=== PATIENT | female | born 1950 | race Caucasian/White ===

== ENCOUNTER 2020-08-22 07:45 | Outpatient (CLI) | payer MEDICARE, SELFPAY ==
--- NOTE | ~2020-08-22 | MM_ITS ---
EXAMINATION: MM screening [facility] HISTORY: Screening mammogram, family history of breast cancer in her mother and sister. TECHNIQUE: Craniocaudal and mediolateral oblique 3-D tomosynthesis images were obtained and synthetic 2-D images were generated. CAD analysis was submitted and interpreted. COMPARISON: 05/01/2019, 04/10/2018, 06/04/2012 BREAST PARENCHYMAL COMPOSITION: There are scattered areas of fibroglandular density. FINDINGS: There is no evidence of suspicious mass, calcification, or architectural distortion to sugg est malignancy in either breast. There has been no suspicious interval change. IMPRESSION: 1. No mammographic evidence of malignancy. 2. Recommend routine screening mammography in one year. BI-RADS Category 1: Negative Reviewed, dictated and finalized at location A.
== END 2020-08-22 07:46 | disposition home or self-care (01) ==
LOC: ANHIMG 07:47
PROVIDERS: Visit Provider Nurse Practitioner Family
DX: Z12.31 Encounter for screening mammogram for malignant neoplasm of breast (principal)
CPT/HCPCS: 77063; 77067

== ENCOUNTER 2021-12-17 14:37 | Emergency (ER) | payer MEDICARE, SELFPAY ==
--- NOTE | ~2021-12-17 | CT_ITS ---
EXAMINATION: CT brain wo con DATE: 12/17/2021 15:10 INDICATION: FALL 4 DAYS AGO. BRUISING TO LEFT FOREHEAD. . TECHNIQUE: Computed tomography (CT) of the head was performed without intravenous contrast. The mA wa s adjusted according to patient size. Iterative reconstruction technique was employed. The dose-lengt h product was 605.33 mGy-cm. COMPARISON: None FINDINGS: No acute intracranial hemorrhage or extra-axial fluid collection. No hydrocephalus, mass, or herniation. No acute ischemic infarct. Unremarkable dural venous sinus attenuation. No acute osseous abnormality. Minimal 400 contusion. The aerated spaces are clear. Mild atrophy and chronic white matter change. Atherosclerotic intracranial calcifications. IMPRESSION: No acute intracranial process. Reviewed, dictated and finalized at location K.
--- NOTE | ~2021-12-17 | CT_ITS ---
EXAMINATION: CT cervical spine wo con DATE: 12/17/2021 15:10 INDICATION: FALL 4 DAYS AGO. NECK SORENESS SINCE FALL. TECHNIQUE: Computed tomography (CT) of the cervical spine was performed without intravenous contrast. Automated exposure control and iterative reconstruction technique were employed. The dose-length pro duct was 256.16 mGy-cm. COMPARISON: None FINDINGS: Vertebral Body Alignment: Intact. Craniocervical and atlantoaxial alignment: Moderate degenerative change. Alignment intact. Osseous structures/fracture: No evidence of a lytic or blastic process in the visualized spine. No e vidence of acute fracture. Cervical soft tissues: The paraspinal soft tissues planes are maintained. Degenerative changes: Multilevel degenerative disc disease. Multilevel severe facet arthropathy. Mare re right neural foraminal narrowing at C4-5. No severe central canal narrowing. IMPRESSION: No acute fracture or traumatic malalignment in the cervical spine. Reviewed, dictated and finalized at location K.
--- NOTE | 2021-12-17 14:41 | ED.FALL ---
HPI - Fall General Chief Complaint: Fall Stated Complaint: fell down on Saturday;went to [facility] Time Seen by Provider: 12/17/21 14:41 Source: patient and RN notes reviewed Mode of arrival: ambulatory Limitations: no limitations History of Present Illness complaint: fall Onset (ago): day(s) (4) Fall from: standing Fall witnessed: no Place fall occurred: home Loss of consciousness: none Prolonged down time: no Symptoms prior to fall: none Context: tripped/slipped (on rug) Location of injury: head and neck Severity: moderate Quality: dull and aching Associated symptoms (after fall): neck pain Related Data Home Medications Medication Instructions Recorded Confirmed albuterol sulfate 90 mcg/actuation 1 inh inhalation Q4H 12/17/21 12/17/21 aerosol inhaler cyclobenzaprine 10 mg tablet 10 mg PO BID 12/17/21 12/17/21 famotidine 20 mg tablet 20 mg PO BID 12/17/21 12/17/21 gabapentin 300 mg capsule 300 mg PO DAILY 12/17/21 12/17/21 lisinopril 20 mg tablet 20 mg PO DAILY 12/17/21 12/17/21 montelukast 10 mg tablet 10 mg PO DAILY 12/17/21 12/17/21 omeprazole 40 mg capsule,delayed 40 mg PO DAILY 12/17/21 12/17/21 release oxybutynin chloride 5 mg tablet 5 mg PO BID 12/17/21 12/17/21 Allergies Allergy/AdvReac Type Severity Reaction Status Date / Time No Known Allergies Allergy Mild Unverified 12/17/21 14:50 Review of Systems Review of Systems: All systems reviewed & are unremarkable except as noted in HPI and below PMFSH Past Medical History Medical History (Updated 12/17/21 @ 15:59 by Rome Lau MD) Hypertension Peripheral neuropathy Surgical History Surgical History (Updated 12/17/21 @ 14:45 by Rome Lau MD) History of tonsillectomy History of total abdominal hysterectomy S/P hernia repair Social History Social History (Updated 12/17/21 @ 14:45 by Rome Lau MD) Smoking status: Never smoker Exam Const: General: healthy appearing, no acute distress and alert Nutritional Appearance: well nourished Orientation/consciousness: patient oriented x3 Limitations: no limitations HENMT: Head: hematoma left parietal and scalp tenderness Ears: external ears normal Eyes: Conjunctivae: conjunctivae normal Pupils: Equal, round and reactive pupils present EOM: EOMs intact bilaterally Neck: Neck: normal visual inspection Resp: Effort & Inspection: normal respiratory effort Auscultation: clear to auscultation bilaterally Cardio: Rate: regular rate Rhythm: regular rhythm GI: GI Palp: Yes Soft to palpation and No Tenderness to palpation present (GI) Auscultation: normal bowel sounds Back/Spine/Pelvis: Cervical Spine: cervical muscular tenderness ( on the left), pain with cervical ROM and Cervical spine tenderness Thoracic/Lumbar Spine: thoraco-lumbar ROM normal Skin: General skin exam: normal color Rashes: no rashes Neuro: General: patient oriented x3, moves all extremities, no focal motor deficits and CN's II-XI intact bilaterally Speech: normal speech Gait exam (Neuro): Normal gait present Other: GCS=15 Course Vital Signs Vital signs: Vital Signs Temperature 36.3 C L 12/17/21 14:46 Pulse Rate 77 12/17/21 14:46 Respiratory Rate 16 12/17/21 14:46 Blood Pressure 144/79 H 12/17/21 14:46 Pulse Oximetry 97 12/17/21 14:46 Oxygen Delivery Room Air 12/17/21 14:46 Temperature 36.2 C L 12/17/21 16:06 Pulse Rate 58 L 12/17/21 16:06 Respiratory Rate 17 12/17/21 16:06 Blood Pressure 115/80 12/17/21 16:06 Pulse Oximetry 97 12/17/21 16:06 Oxygen Delivery Room Air 12/17/21 16:06 Discharge Plan Discharge Clinical Impression: Contusion of scalp Qualifiers: Encounter type: initial encounter Qualified Code(s): S00.03XA - Contusion of scalp, initial encounter Patient Disposition: Home, Self-Care Condition: Stable Instructions: Scalp Contusion in Adults (ED) Additional Instructions: use Tylenol and or Motrin as needed.
[2021-12-17 14:46] VITALS: BP 144/79; PULSE 77; RESP 16; TEMP 36.3; O2SAT 97
[2021-12-17 16:06] VITALS: BP 115/80; PULSE 58; RESP 17; TEMP 36.2; O2SAT 97
== END 2021-12-17 16:07 | disposition home or self-care (01) ==
PROVIDERS: Emergency Provider Emergency Medicine; PCP Family Medicine
DX: S00.03XA Contusion of scalp, initial encounter (principal); W19.XXXA Unspecified fall, initial encounter; I10 Essential (primary) hypertension
CPT/HCPCS: 70450; 72125; 99284

== ENCOUNTER 2022-01-26 07:48 | Outpatient (CLI) | payer MEDICARE, SELFPAY ==
--- NOTE | ~2022-01-26 | MM_ITS ---
EXAMINATION: MM screening [facility] w [facility] HISTORY: Screening TECHNIQUE: Craniocaudal and mediolateral oblique 3-D tomosynthesis images were obtained and synthetic 2-D images were generated. CAD analysis was submitted and interpreted. COMPARISON: Comparison to multiple prior studies sequentially, with oldest reviewed study dated 06/04. BREAST PARENCHYMAL COMPOSITION: There are scattered areas of fibroglandular density. FINDINGS: There is no evidence of suspicious mass, calcification, or architectural distortion to sugg est malignancy in either breast. There has been no suspicious interval change. IMPRESSION: 1. No mammographic evidence of malignancy. 2. Recommend routine screening mammography in one year. BI-RADS Category 1: Negative Reviewed, dictated and finalized at location A.
== END 2022-01-26 07:49 | disposition home or self-care (01) ==
PROVIDERS: PCP Family Medicine; Visit Provider Family Medicine
DX: Z12.31 Encounter for screening mammogram for malignant neoplasm of breast (principal)
CPT/HCPCS: 77063; 77067

== ENCOUNTER 2022-01-31 08:44 | Emergency (ER) | payer MEDICARE, SELFPAY ==
--- NOTE | ~2022-01-31 | CT_ITS ---
EXAMINATION: CT lumbar spine wo con DATE: 01/31/2022 11:34 INDICATION: Nontraumatic low back pain. TECHNIQUE: Computed tomography (CT) of the lumbar spine was performed without intravenous contrast. A utomated exposure control and iterative reconstruction technique were employed. The dose-length produ ct was 814.54 mGy-cm. COMPARISON: None FINDINGS: There is 14 degrees levoscoliosis of thoracolumbar spine. There is mild chronic anterior we dging of T12-L2 vertebral bodies. There is severely decreased disc height at T12-L1 and moderately de creased disc height from L1-L2 through L5-S1. The following disc levels are specifically discussed: T12-L1: The disc is bulging. There is severe bilateral facet joint osteoarthritis. There is mild righ t neural foraminal stenosis. There is mild central canal stenosis. L1-L2: The disc is bulging. There is severe bilateral facet joint osteoarthritis. There is mild bilat eral neural foraminal stenosis. There is mild central canal stenosis. L2-L3: The disc is bulging. There is severe bilateral facet joint osteoarthritis. There is mild bilat eral neural foraminal stenosis. There is mild central canal stenosis. L3-L4: The disc is bulging. There is severe bilateral facet joint osteoarthritis. There is mild right and moderate left neural foraminal stenosis. There is moderate central canal stenosis. L4-L5: The disc is bulging. There is severe bilateral facet joint osteoarthritis. There is mild bilat eral neural foraminal stenosis. There is moderate central canal stenosis. L5-S1: The disc is bulging. There is severe bilateral facet joint osteoarthritis. There is moderate b ilateral neural foraminal stenosis. There is moderate central canal stenosis. IMPRESSION: 1. Severe lumbar spondylosis. 2. Thoracolumbar levoscoliosis. Reviewed, dictated and finalized at location B.
[2022-01-31 08:57] VITALS: BP 183/107; PULSE 59; RESP 18; TEMP 37; O2SAT 97
[2022-01-31 10:32] VITALS: BP 171/97; PULSE 57; RESP 14; O2SAT 97
--- NOTE | 2022-01-31 10:57 | ED.BACK ---
HPI - Back Pain/Injury General Chief Complaint: Back Pain/Injury Stated Complaint: back went out Time Seen by Provider: 01/31/22 10:48 Source: patient Mode of arrival: ambulatory Limitations: no limitations History of Present Illness HPI Narrative: 71 years old white female came to the emergency room by private car complaining of right lower back pain, chronic for years got worse over the last 2 weeks, and worse today. She denies any fever, chills, nausea, vomiting. History of chronic right sciatica, for years, numbness and tingling of the right lower extremity, was offered a surgery years ago and she declined she is telling me. Patient used to have epidural injection at [facility], was taking care of by pain management physician, patient had right lower leg vein surgery at [facility] 3 days ago. Patient denies bowel dysfunction, bladder dysfunction, altered sensation, focal weakness, or saddle numbness, Related Data Home Medications Medication Instructions Recorded Confirmed albuterol sulfate 90 mcg/actuation 1 inh inhalation Q4H 12/17/21 12/17/21 aerosol inhaler cyclobenzaprine 10 mg tablet 10 mg PO BID 12/17/21 12/17/21 famotidine 20 mg tablet 20 mg PO BID 12/17/21 12/17/21 gabapentin 300 mg capsule 300 mg PO DAILY 12/17/21 12/17/21 lisinopril 20 mg tablet 20 mg PO DAILY 12/17/21 12/17/21 montelukast 10 mg tablet 10 mg PO DAILY 12/17/21 12/17/21 omeprazole 40 mg capsule,delayed 40 mg PO DAILY 12/17/21 12/17/21 release oxybutynin chloride 5 mg tablet 5 mg PO BID 12/17/21 12/17/21 Allergies Allergy/AdvReac Type Severity Reaction Status Date / Time No Known Allergies Allergy Mild Verified 01/31/22 09:04 Review of Systems Review of Systems: All systems reviewed & are unremarkable except as noted in HPI and below PMFSH Past Medical History Medical History Hypertension Peripheral neuropathy Surgical History Surgical History History of tonsillectomy History of total abdominal hysterectomy S/P hernia repair Social History Social History Smoking status: Never smoker Exam Narrative: General appearance: Well-developed, well-nourished Skin: Normal color Head: Normocephalic, nontraumatic Eyes: Clear conjunctiva ENT: Oropharynx normal, ears normal, nose normal Neck: Supple, nontender Chest and respiratory: Airway patent, no respiratory distress, no accessory muscle use Heart: Regular rate/rhythm Abdomen: Soft, nontender, no organomegaly, quiet bowel sounds Vascular: Normal peripheral pulses, normal capillary refill. Musculoskeletal: Limited range of motion of lower extremity bilaterally because of lower back pain, right lower leg is wrapped with Nirav wrap Neurologic: Alert and oriented ?3, ROLL UP OPERATOR is normal as tested, no gross motor deficit Course Vital Signs Vital signs: Vital Signs Temperature 37.0 C 01/31/22 08:57 Pulse Rate 59 L 01/31/22 08:57 Respiratory Rate 18 01/31/22 08:57 Blood Pressure 183/107 H 01/31/22 08:57 Pulse Oximetry 97 01/31/22 08:57 Oxygen Delivery Room Air 01/31/22 08:57 Temperature 37.0 C 01/31/22 08:57 Pulse Rate 60 01/31/22 13:29 Respiratory Rate 13 01/31/22 13:29 Blood Pressure 153/84 H 01/31/22 13:29 Pulse Oximetry 95 01/31/22 13:29 Oxygen Delivery Room Air 01/31/22 08:57 MDM - Back Pain/Injury Differential Diagnosis Differential diagnosis: Likely lumbar radiculopathy, sciatica and strain of lumbar region Imaging Data Radiologist's impression: Impressions Lumbar
[2022-01-31] MEDS: HYDROmorphone HCL INJ (*CRX) 1 MG/ML SYR IM (11:20)
[2022-01-31] MEDS: ONDANSETRON HCL ODT 4 MG TABLET PO (11:20)
[2022-01-31 11:21] VITALS: BP 151/93; PULSE 65; RESP 22; O2SAT 96
--- NOTE | 2022-01-31 11:23 | PC.NURSE ---
Pt to CT scan via stretcher at this time.
[2022-01-31 13:29] VITALS: BP 153/84; PULSE 60; RESP 13; O2SAT 95
== END 2022-01-31 14:14 | disposition home or self-care (01) ==
PROVIDERS: Emergency Provider Emergency Medicine; PCP Family Medicine
DX: M47.26 Other spondylosis with radiculopathy, lumbar region (principal); S39.012A Strain of muscle, fascia and tendon of lower back, initial encounter; M54.31 Sciatica, right side; I10 Essential (primary) hypertension; G62.9 Polyneuropathy, unspecified; X58.XXXA Exposure to other specified factors, initial encounter
CPT/HCPCS: 72131; 96372; 99284; A9270; J1170

== ENCOUNTER 2022-02-26 14:55 | Emergency (ER) | payer MEDICARE, SELFPAY ==
--- NOTE | 2022-02-26 15:03 | ED.SKABFB ---
HPI - Skin/Abscess/Foreign Bdy General Chief complaint: Animal Bite Stated complaint: Cat Scratch Time Seen by Provider: 02/26/22 15:03 Source: patient and RN notes reviewed History of Present Illness HPI narrative: Patient is a 71-year-old female who presents to urgent care with complaints of a cat scratch to the top of the right hand. Patient is right-hand dominant. States that she was at her friend's house today and her cat scratched her hand. Patient is unsure if the cat is up-to-date on his vaccinations. States that they applied a powder to the top of the hand. The bleeding as well as bandages after cleaning the hand. No other acute complaints. No acute distress noted. Patient aware of the plan of care. Some parts of this dictation were generated by voice recognition software and may contain typographical and/or grammatical inaccuracies. Related Data Home Medications Medication Instructions Recorded Confirmed albuterol sulfate 90 mcg/actuation 1 inh inhalation Q4H 12/17/21 02/26/22 aerosol inhaler cyclobenzaprine 10 mg tablet 10 mg PO BID 12/17/21 02/26/22 famotidine 20 mg tablet 20 mg PO BID 12/17/21 02/26/22 gabapentin 300 mg capsule 300 mg PO DAILY 12/17/21 02/26/22 lisinopril 20 mg tablet 20 mg PO DAILY 12/17/21 02/26/22 montelukast 10 mg tablet 10 mg PO DAILY 12/17/21 02/26/22 omeprazole 40 mg capsule,delayed 40 mg PO DAILY 12/17/21 02/26/22 release oxybutynin chloride 5 mg tablet 5 mg PO BID 12/17/21 02/26/22 Allergies Allergy/AdvReac Type Severity Reaction Status Date / Time No Known Allergies Allergy Mild Verified 01/31/22 09:04 Review of Systems Review of Systems: CONSTITUTIONAL: Denies fever, chills, or sweats. EYES: Denies visual changes, redness, or discharge. ENT: Denies rhinorrhea, congestion, sore throat, or otalgia. CARDIOVASCULAR: Denies chest pain, palpitations, or edema. RESPIRATORY: Denies cough or dyspnea. GASTROINTESTINAL: Denies abdominal pain, nausea, vomiting, or diarrhea. GENITOURINARY: Denies dysuria or hematuria. SKIN: Reports of a cat scratch to the top of the right hand MUSCULOSKELETAL: Denies back pain, joint pain, or myalgia. NEUROLOGIC: Denies headache, numbness, or weakness. All other systems reviewed are negative, except as documented in HPI. PMFSH Past Medical History Medical History Hypertension Peripheral neuropathy Surgical History Surgical History History of tonsillectomy History of total abdominal hysterectomy S/P hernia repair Social History Social History Smoking status: Never smoker Comments At the time of my signature, I reviewed and agree with the nursing past medical, surgical, social, and family history. There is no relevant family history pertinent to the patient complaint. Exam Narrative: GENERAL: This is a well-nourished, well-developed patient, in no apparent distress. HEAD: normocephalic, atraumatic. EYES: PERRL. Sclera clear/white. Vision is grossly intact. EARS: External ears normal NOSE: External nose normal with no obvious nasal discharge, nares without redness, no rhinorrhea. THROAT: Mucous membranes moist NECK: Neck supple SKIN: 1 x 1 skin avulsion to the dorsal aspect of the right hand, 0.5 cm skin tear to the dorsal aspect of the right hand NEURO: awake, alert, and oriented to person, place and time. There were no obvious focal neurologic abnormalities. EXTREMITIES: positive strong right radial pulse with capillary refill less than 2 seconds. Course Course Level of Care: Express Care Visit Vital Signs Vital signs: Vital Signs Temperature 98.2 F 02/26/22 15:08 Pulse Rate 56 L 02/26/22 15:08 Respiratory Rate 16 02/26/22 15:08 Blood Pressure 152/82 H 02/26/22 15:08 Pulse Oximetry 98 02/26/22 15:08 Oxygen Delivery Room Air 02/26/22 15:08
[2022-02-26 15:08] VITALS: BP 152/82; PULSE 56; RESP 16; TEMP 36.8; O2SAT 98
== END 2022-02-26 15:44 | disposition home or self-care (01) ==
PROVIDERS: Emergency Provider Nurse Practitioner Family; PCP Family Medicine
DX: S60.511A Abrasion of right hand, initial encounter (principal); W55.03XA Scratched by cat, initial encounter; I10 Essential (primary) hypertension; G62.9 Polyneuropathy, unspecified
CPT/HCPCS: 99213; G0463

== ENCOUNTER 2022-03-30 17:56 | Emergency (ER) | payer MEDICARE, SELFPAY ==
--- NOTE | 2022-03-30 18:08 | ED.DENTAL ---
HPI - Dental/Oral General Chief complaint: Dental/Oral Stated complaint: mouth is bleeding from tooth removal Time Seen by Provider: 03/30/22 18:03 Source: patient Mode of arrival: ambulatory Limitations: no limitations History of Present Illness HPI Narrative: PATIENT HAD 4 OF HER LOWER FRONT TEETH REMOVED BY DARIN TODAY. SHE SAYS SHE HAS A CLOT OVER HER GUMS. PATIENT STATES SHE LEFT THE OFFICE AROUND 11:00 A.M.. THERE WAS A GAUZE OVER THE WOUND SHE SAID SHE WAS BLEEDING IN THE OFFICE AND WHEN SHE LEFT THE OFFICE THAT SHE HAS BEEN BLEEDING ALL DAY. SHE SAID THE BLEEDING STOPPED JUST BEFORE SHE CAME TO THE EMERGENCY DEPARTMENT TEETH NUMBER 23, 24, 25, AND 26 WERE THE ONES THAT WERE EXTRACTED. SHE HAS WAS TOLD TO TAKE TYLENOL IBUPROFEN FOR PAIN. DENIES ANY OTHER PAIN OR DIZZINESS OR LIGHTHEADEDNESS OR COMPLAINTS. THE ONLY THING SHE HAD TO EAT TODAY WAS LIQUID BROTH. SHE WAS TOLD TO STICK WITH LIQUIDS AT AND SOFT FOOD FOR 2 WEEKS. DENIES ANY FEVER GUM SWELLING, TOO SWELLING, PAIN WITH SWALLOWING, OR SORE THROAT. Duration: constant Related Data Home Medications Medication Instructions Recorded Confirmed albuterol sulfate 90 mcg/actuation 1 inh inhalation Q4H 12/17/21 02/26/22 aerosol inhaler cyclobenzaprine 10 mg tablet 10 mg PO BID 12/17/21 02/26/22 famotidine 20 mg tablet 20 mg PO BID 12/17/21 02/26/22 gabapentin 300 mg capsule 300 mg PO DAILY 12/17/21 02/26/22 lisinopril 20 mg tablet 20 mg PO DAILY 12/17/21 02/26/22 montelukast 10 mg tablet 10 mg PO DAILY 12/17/21 02/26/22 omeprazole 40 mg capsule,delayed 40 mg PO DAILY 12/17/21 02/26/22 release oxybutynin chloride 5 mg tablet 5 mg PO BID 12/17/21 02/26/22 Allergies Allergy/AdvReac Type Severity Reaction Status Date / Time No Known Allergies Allergy Mild Verified 01/31/22 09:04 Review of Systems Constitutional: Constitutional: Denies chills and Denies fever(s) Eyes: Eyes: Reports no additional eye complaints ENT: Reports system reviewed and no additional complaints, except as documented Cardiovascular: Cardiovascular: Reports no additional cardiovascular complaints Respiratory: Respiratory: Reports no additional respiratory complaints Gastrointestinal: Gastrointestinal: Reports no additional gastrointestinal complaints Genitourinary: Genitourinary: Reports no additional female genitourinary complaints Musculoskeletal: Musculoskeletal: Reports no additional musculoskeletal complaints Neurologic: Reports system reviewed and no additional complaints, except as documented Hematologic/Lymphatic: Hematologic/Lymphatic: Reports as per HPI, Denies easy bleeding and Denies easy bruising PMFSH Past Medical History Medical History Hypertension Peripheral neuropathy Surgical History Surgical History History of tonsillectomy History of total abdominal hysterectomy S/P hernia repair Social History Social History Smoking status: Never smoker Exam Const: General: healthy appearing Nutritional Appearance: well nourished Orientation/consciousness: patient oriented x3 Limitations: no limitations Other: OROPHARYNX CLEAR. MOUTH SHOWS STATUS POST TOOTH EXTRACTION OF NUMBERS 23, 24, 25, AND 26 TEETH WITH STABLE APPEARING CLOT OVER THE WOUND. THERE IS NO ACTIVE BLEEDING. TONGUE APPEARS NORMAL. NECK IS SUPPLE. LUNGS ARE CLEAR HEART IS REGULAR RATE RHYTHM WITHOUT MURMURS GALLOPS OR RUBS ORTHOSTATIC BLOOD PRESSURE AND PULSE WERE UNREMARKABLE. SKIN IS WARM AND DRY. EYES CONJUNCTIVA PINK SCLERA NONICTERIC. NEUROLOGICAL SHE IS ALERT AND ORIENTED X4 MOTOR AND SENSORY GROSSLY INTACT. Course Course Emergency Course: ORTHOSTATICS WERE UNREMARKABLE. EVALUATION PLAN WERE DISCUSSED WITH PATIENT AND PLAN WAS AGREED UPON. Discharge Plan Discharge Clinical Impression: Bleeding gums, Status pos
[2022-03-30 18:17] VITALS: BP 157/101; PULSE 62; RESP 20; TEMP 36.4; O2SAT 97
[2022-03-30 18:51] VITALS: BP 159/101; PULSE 66
[2022-03-30 18:52] VITALS: BP 174/84; PULSE 56
--- NOTE | 2022-03-30 19:06 | PC.NURSE ---
report to TEVIN Tellez.
[2022-03-30 20:54] VITALS: BP 174/98; PULSE 57; RESP 18; O2SAT 95
== END 2022-03-30 21:00 | disposition home or self-care (01) ==
PROVIDERS: Emergency Provider Emergency Medicine; PCP Family Medicine
DX: K06.8 Other specified disorders of gingiva and edentulous alveolar ridge (principal); K08.109 Complete loss of teeth, unspecified cause, unspecified class; I10 Essential (primary) hypertension
CPT/HCPCS: 99282

== ENCOUNTER 2022-04-23 15:44 | Emergency (ER) | payer MEDICARE, SELFPAY ==
[2022-04-23 15:48] VITALS: BP 137/60; PULSE 74; RESP 18; TEMP 36.7; O2SAT 100
--- NOTE | 2022-04-23 16:29 | ED.FEMALEGU ---
HPI - Female Genitourinary General Chief complaint: Urogenital-Female Stated complaint: Urinary Problem Time Seen by Provider: 04/23/22 16:20 Source: patient, RN notes reviewed and old records reviewed Mode of arrival: ambulatory Limitations: no limitations History of Present Illness HPI Narrative: 71-year-old female presents to [facility] with complaints of 2 day history of burning and throbbing with urination. Patient states she has taken some Pyridium tablets x2. Patient reports that she has some suprapubic tenderness, denies any CVA tenderness has chronic low back pain she reports. Patient denies any fevers chills or sweats or any nausea vomiting or diarrhea. Patient denies any concern for STD exposure. MD elicited complaint: UTI Onset (ago): day(s) (2) Severity scale (1-10): 8 Quality of pain: burning and other (throbbing) Vaginal discharge: none Related Data Home Medications Medication Instructions Recorded Confirmed albuterol sulfate 90 mcg/actuation 1 inh inhalation Q4H 12/17/21 02/26/22 aerosol inhaler cyclobenzaprine 10 mg tablet 10 mg PO BID 12/17/21 02/26/22 famotidine 20 mg tablet 20 mg PO BID 12/17/21 02/26/22 gabapentin 300 mg capsule 300 mg PO DAILY 12/17/21 02/26/22 lisinopril 20 mg tablet 20 mg PO DAILY 12/17/21 02/26/22 montelukast 10 mg tablet 10 mg PO DAILY 12/17/21 02/26/22 omeprazole 40 mg capsule,delayed 40 mg PO DAILY 12/17/21 02/26/22 release oxybutynin chloride 5 mg tablet 5 mg PO BID 12/17/21 02/26/22 Allergies Allergy/AdvReac Type Severity Reaction Status Date / Time No Known Allergies Allergy Mild Verified 01/31/22 09:04 Review of Systems Review of Systems: CONSTITUTIONAL: Denies fever, chills, or sweats. CARDIOVASCULAR: Denies chest pain, palpitations, or edema. RESPIRATORY: Denies cough or dyspnea. GASTROINTESTINAL: reports suprapubic abdominal pain, no nausea, vomiting, or diarrhea. GENITOURINARY: Reports dysuria, frequency, urgency. Denies flank pain or hematuria. SKIN: Denies rash or itching. MUSCULOSKELETAL: Denies back pain or myalgia. Denies CVA tenderness NEUROLOGIC: Denies headache All systems reviewed & are unremarkable except as noted in HPI and below PMFSH Past Medical History Medical History GERD (gastroesophageal reflux disease) Hypertension Peripheral neuropathy Surgical History Surgical History History of tonsillectomy History of total abdominal hysterectomy S/P hernia repair Social History Social History Smoking status: Never smoker Comments At time of signature, agree with nursing past medical, surgical, social and family history. There is no relevant family history pertinent to the presenting complaint Exam Narrative: GENERAL: Well-appearing, well-nourished, and in no acute distress. HEAD: Normocephalic, atraumatic. NECK: Supple. no lymphadenopathy CHEST: Clear to auscultation. No respiratory distress.SAO2 100% on room air HEART: Regular rate and rhythm. No murmur heard. Normal peripheral pulses. ABDOMEN: Soft, suprapubic tender, nondistended, normal active bowel sounds. No CVA tenderness on exam EXTREMITIES: Normal range of motion. No edema. SKIN: Warm, dry, no rash. NEURO: No focal deficits. Alert and oriented x3. Course Course Emergency Course: Patient is aware of diagnosis, understands and agrees to treatment plan.? Anticipatory guidance given.? Patient agrees to follow-up as directed and is aware of reasons to seek care at the emergency department. Portions of this record may have been created with voice recognition software Level of Care: [facility] Care Visit Vital Signs Vital signs: Vital Signs Temperature 36.7 C 04/23/22 15:48 Pulse Rate 74 04/23/22 15:48 Respiratory Rate 18 04/23/22 15:48 Blood Pressure 137/60 04/23/22 15:48 Pulse Oximetry 100 04/23/22
== END 2022-04-23 16:41 | disposition home or self-care (01) ==
PROVIDERS: Emergency Provider Registered Nurse; PCP Family Medicine
DX: N39.0 Urinary tract infection, site not specified (principal); K21.9 Gastro-esophageal reflux disease without esophagitis; I10 Essential (primary) hypertension; G62.9 Polyneuropathy, unspecified
CPT/HCPCS: 81003; 87086; 87088; 99213; G0463

== ENCOUNTER 2023-05-18 12:27 | Outpatient (CLI) | payer MEDICARE, SELFPAY ==
--- NOTE | ~2023-05-18 | MR_ITS ---
EXAMINATION: MR lumbar spine wo con DATE: 05/18/2023 13:25 INDICATION: Spinal stenosis of lumbar region. TECHNIQUE: Magnetic resonance imaging (MRI) of the lumbar spine was performed without intravenous con trast. Sequences included sagittal T2-weighted FSE, sagittal T2-weighted FS FSE, sagittal T1-weighted FSE, and axial T2-weighted FSE. COMPARISON: CT lumbar spine 01/31/2022 FINDINGS: There is 15 degrees levoscoliosis of thoracolumbar spine. There is mild chronic anterior we dging of T11-L2 vertebral bodies. There is severely decreased disc height at T12-L1 and moderately de creased disc height from L1-L2 through L5-S1. The distal spinal cord signal intensity is normal. The conus medullaris is at L1. 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 The following disc levels are spec ifically discussed: T12-L1: The disc is bulging and has an annular fissure. There is severe bilateral facet joint osteoar thritis. There is mild bilateral neural foraminal stenosis. There is mild central canal stenosis. L1-L2: The disc is bulging and has an annular fissure. There is severe bilateral facet joint osteoart hritis. There is mild right neural foraminal stenosis. There is mild central canal stenosis. L2-L3: The disc is bulging and has an annular fissure. There is severe bilateral facet joint osteoart hritis. There is mild right and moderate left neural foraminal stenosis. There is mild central canal stenosis. L3-L4: The disc is bulging. There is severe bilateral facet joint osteoarthritis. There is moderate b ilateral neural foraminal stenosis. There is severe central canal stenosis. L4-L5: The disc is bulging and has an annular fissure. There is severe bilateral facet joint osteoart hritis. There is mild bilateral neural foraminal stenosis. There is moderate central canal stenosis. L5-S1: The disc is bulging and has an annular fissure. There is severe bilateral facet joint osteoart hritis. There is moderate bilateral neural foraminal stenosis. There is mild central canal stenosis. There is severe stenosis of right lateral recess and moderate stenosis of left lateral recess. IMPRESSION: 1. Severe lumbar spondylosis. 2. Thoracolumbar levoscoliosis. Reviewed, dictated and finalized at location E. R CRANE OPERATOR
--- NOTE | ~2023-05-18 | MR_ITS ---
EXAMINATION: MR cervical spine wo con DATE: 05/18/2023 13:25 INDICATION: Spinal stenosis. Neck pain. TECHNIQUE: Magnetic resonance imaging (MRI) of the cervical spine was performed without intravenous c ontrast. COMPARISON: CT cervical spine 12/17/2021 FINDINGS: Bone alignment is normal. Vertebral body heights are normal. There is mildly decreased disc height at C5-C6 and C6-C7. The spinal cord signal intensity is normal. The following disc levels are specifically discussed: C2-C3: There is a central protrusion. There is mild right and moderate left uncovertebral joint osteo arthritis. There is severe bilateral facet joint osteoarthritis. There is mild left neural foraminal stenosis. There is no central canal stenosis. C3-C4: The disc is bulging. There is moderate right and mild left uncovertebral joint osteoarthritis. There is severe bilateral facet joint osteoarthritis. There is severe right and mild left neural for aminal stenosis. There is mild central canal stenosis. C4-C5: The disc is bulging. There is moderate right and mild left uncovertebral joint osteoarthritis. There is severe right and mild left facet joint osteoarthritis. There is moderate right and mild lef t neural foraminal stenosis. There is mild central canal stenosis. C5-C6: The disc is bulging. There is severe bilateral uncovertebral joint osteoarthritis. There is se cindy bilateral facet joint osteoarthritis. There is moderate bilateral neural foraminal stenosis. The re is mild central canal stenosis. C6-C7: The disc is bulging. There is mild bilateral uncovertebral joint osteoarthritis. There is krishna re bilateral facet joint osteoarthritis. There is mild bilateral neural foraminal stenosis. There is mild central canal stenosis. C7-T1: The disc does not extend beyond the endplate margin. There is no uncovertebral joint osteoarth ritis. There is severe bilateral facet joint osteoarthritis. There is mild bilateral neural foraminal stenosis. There is no central canal stenosis. IMPRESSION: 1. Moderate cervical spondylosis. Reviewed, dictated and finalized at location E. NICAL CUSTOMER SUPPORT SPECIALIST
== END 2023-05-18 12:28 | disposition home or self-care (01) ==
LOC: ANHIMG 12:32
PROVIDERS: PCP Family Medicine
DX: M48.062 Spinal stenosis, lumbar region with neurogenic claudication (principal); M43.02 Spondylolysis, cervical region; M41.85 Other forms of scoliosis, thoracolumbar region
CPT/HCPCS: 72141; 72148

== ENCOUNTER 2023-11-29 13:34 | Emergency (ER) | payer OTHER, SELFPAY ==
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
[2023-11-29 13:40] VITALS: BP 144/89; PULSE 93; RESP 20; TEMP 36.8; O2SAT 94
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
[2023-11-29] MEDS: IBUPROFEN 600 MG TABLET PO (13:58)
[2023-11-29] MEDS: HYDROcodone/acetaminophen (*CRX) 5-325 MG TABLET 1 TAB PO (13:58)
--- NOTE | 2023-11-29 14:02 | PC.NURSE ---
PT TO RADIOLOGY AT THIS TIME. FAMILY AT BEDSIDE. PT WAS TEXTING ON CELL WITHOUT DISTRESS PRIOR TO RADIOLOGY.
--- NOTE | 2023-11-29 14:47 | PC.NURSE ---
c collar removed per erp. pt is sitting up on stretcher texting on cell phone. will continue to monitor.
[2023-11-29 15:10] VITALS: BP 124/98; PULSE 77; RESP 20; TEMP 36.4; O2SAT 94
--- NOTE | 2023-11-29 15:13 | PC.NURSE ---
daughter to transport. pt was able to dress herself wtihout difficulty.
== END 2023-11-29 15:00 | disposition home or self-care (01) ==
PROVIDERS: Emergency Provider Emergency Medicine; PCP Physician Assistant
DX: M54.6 Pain in thoracic spine (principal); S80.12XA Contusion of left lower leg, initial encounter; I10 Essential (primary) hypertension; Z79.899 Other long term (current) drug therapy; V49.50XA Passenger injured in collision with unspecified motor vehicles in traffic accident, initial encounter
CPT/HCPCS: 72125; 72128; 72131; 73562; 99284; A9270

== ENCOUNTER 2024-01-08 10:06 | Outpatient (CLI) | payer MEDICARE, SELFPAY ==
--- NOTE | 2024-01-08 12:00 | NEURO_ITS ---
Impression: # Complains of numbness of upper extremities. Non-diabetic with history of lower back surgery. # Mild right Carpal Tunnel Syndrome. # Moderate left Carpal Tunnel Syndrome. # No ulnar neuropathy. # Normal Needle/EMG exam. Nerve Conduction Studies Anti Sensory Summary Table Stim Site NR Peak (ms) P-T Amp (?V) Site1 Site2 Delta-P (ms) Dist (cm) Luis Alfredo (m/s) Left Median Anti Sensory (2-3nd Digit) Wrist 7.4 4.6 Wrist 2-3nd Digit 7.4 14.0 19 Wrist 7.7 7.3 Wrist 2-3nd Digit 7.4 14.0 19 Right Median Anti Sensory (2-3nd Digit) Wrist 3.8 8.5 Wrist 2-3nd Digit 3.8 14.0 37 Wrist 3.8 4.7 Wrist 2-3nd Digit 3.8 14.0 37 Left Radial Anti Sensory (Base 1st Digit) Wrist 2.0 19.1 Wrist Base 1st Digit 2.0 0.0 Right Radial Anti Sensory (Base 1st Digit) Wrist 2.6 9.1 Wrist Base 1st Digit 2.6 0.0 Left Ulnar Anti Sensory (5th Digit) Wrist 2.2 31.5 Wrist 5th Digit 2.2 14.0 64 Right Ulnar Anti Sensory (5th Digit) Wrist 2.2 20.5 Wrist 5th Digit 2.2 14.0 64 Motor Summary Table Stim Site NR Onset (ms) O-P Amp (mV) Site1 Site2 Delta-0 (ms) Dist (cm) Luis Alfredo (m/s) Left Median Motor (Abd Poll Brev) Wrist 4.8 1.0 Elbow Wrist 5.1 30.0 59 Elbow 9.9 2.3 Right Median Motor (Abd Poll Brev) Wrist 3.7 2.4 Elbow Wrist 4.9 29.0 59 Elbow 8.6 5.3 Left Ulnar Motor (Abd Dig Minimi) Wrist 2.2 3.5 A Elbow Wrist 5.2 30.0 58 A Elbow 7.4 1.8 Right Ulnar Motor (Abd Dig Minimi) Wrist 2.4 6.6 A Elbow Wrist 4.9 29.0 59 A Elbow 7.3 5.5 F Wave Studies NR F-Lat (ms) L-R F-Lat (ms) Left Median (Mrkrs) (Abd Poll Brev) 30.38 1.51 Right Median (Mrkrs) (Abd Poll Brev) 28.87 1.51 Left Ulnar (Mrkrs) (Abd Dig Min) 29.84 1.25 Right Ulnar (Mrkrs) (Abd Dig Min) 28.59 1.25 EMG Side Muscle Nerve Root Ins Act Fibs Amp Dur Recrt Comment Right 1stDorInt Ulnar C8-T1 Nml Nml Nml Nml Nml Right Ext Indicis Radial (Post Int) C7-8 Nml Nml Nml Nml Nml Right Ext Digitorum Radial (Post Int) C7-8 Nml Nml Nml Nml Nml Right BrachioRad Radial C5-6 Nml Nml Nml Nml Nml Right PronatorTeres Median C6-7 Nml Nml Nml Nml Nml Right Abd Poll Brev Median C8-T1 Nml Nml Nml Nml Nml Right ABD Dig Min Ulnar C8-T1 Nml Nml Nml Nml Nml Left 1stDorInt Ulnar C8-T1 Nml Nml Nml Nml Nml Left Ext Indicis Radial (Post Int) C7-8 Nml Nml Nml Nml Nml Left Ext Digitorum Radial (Post Int) C7-8 Nml Nml Nml Nml Nml Left BrachioRad Radial C5-6 Nml Nml Nml Nml Nml Left PronatorTeres Median C6-7 Nml Nml Nml Nml Nml Left Abd Poll Brev Median C8-T1 Nml Nml Nml Nml Nml Left ABD Dig Min Ulnar C8-T1 Nml Nml Nml Nml Nml Right Biceps Musculocut C5-6 Nml Nml Nml Nml Nml Right Triceps Radial C6-7-8 Nml Nml Nml Nml Nml Right Deltoid Axillary C5-6 Nml Nml Nml Nml Nml Left Biceps Musculocut C5-6 Nml Nml Nml Nml Nml Left Triceps Radial C6-7-8 Nml Nml Nml Nml Nml Left Deltoid Axillary C5-6 Nml Nml Nml Nml Nml MTDD
== END 2024-01-08 10:07 | disposition home or self-care (01) ==
LOC: ANHNEURO 10:08
PROVIDERS: PCP Family Medicine
DX: G56.03 Carpal tunnel syndrome, bilateral upper limbs (principal)
CPT/HCPCS: 95886; 95911

== ENCOUNTER 2024-06-25 12:36 | Outpatient (CLI) | payer MEDICARE, SELFPAY ==
[2024-06-25 13:35] LABS: Toxigenic C. Diff NEGATIVE (NEGATIVE)
--- OUTSIDE RECORDS SUMMARY | 2024-06-25 14:04 | XMS_ITS | Continuity of Care Document ---
Author Organization [facility] Address [address] [place] [address] Phone Care Team Providers Care Pharmacy Consultant Name Role Phone Rodney Luu DO Unavailable Unavailable Allergies, Adverse Reactions, Alerts Substance Reaction Status Criticality No Known Allergies Active No Inform ation Medications Medication Instructions Dosage Effective Dates (start - stop) Status Comments tramadol 50 mg tablet take 1 tablet by oral route every 6 hours as needed 50 MG - Active gabapentin 300 mg capsule take 1 capsule by oral route 3 times every day 300 MG - Active Take 1 tablet at night before bed, after 3 days start taking 1 tablet BID, after 3 days begin taking three times daily. LISINOPRIL (unknown strength) take 1 tablet by oral route every day Not Available - Active CYCLOBENZAPRINE HCL (unknown strength) take 1 tablet by oral route 3 times every day Not Available - Active OXYBUTYNIN CHLORIDE (unknown strength) take 1 tablet by oral route 2 times every day Not Available - Active TRAMADOL HCL ER (unknown strength) take 1 capsule by oral route every day Not Available - Active TYLENOL (unknown strength) take 2 tablet by oral route every 6 hours as needed Not Available - Active Procedures Procedure Date OFFICE/OUTPATIENT VISIT EST Advance Directives Directive Yes / No Effective Date File Name No Information Encounters Encounter Description Practice Location Reason(s) For Visit Diagnoses Date Provider Providers Copied on Encounter [facility], [address], [place], [address], [place] tel:[phone] [facility] Back Pain (chief complaint) Radiculopathy of lumbosacral regionSpinal stenosis of lumbar region 6 Jus Stevens. [address], [place], [place], [id number] . tel: [phone] OFFICE/OUTPA TIENT VISIT EST [facility], [address] [place] [address], [facility], tel:[phone] [facility] [place] Lumbar spine (chief complaint) Spinal stenosis of lumbar regionSpondylos is of lumbosacral region without myelopathy or radiculopathyRa diculopathy of lumbosacral region 6 Jus Stevens. [address], [place], [place], [id number] . tel: [phone] [facility], [address] [place] [address], [facility], [phone] [facility] [place] No Information 6 Jus Stevens. [address], [place], [place], [id number] . tel: [phone] [facility], [address] [place] [address], [place], [place], [facility], tel:[phone] [facility] [place] Lumbar spine (chief complaint) No Information 6 Jus Stevens. [address], [place], [place], [id number] . tel: [phone] Family History Family Member Type Diagnosis Age At Onset Father Problem (finding) hypertension Payers Payer name Insurance type Covered constitution party ID Authorashlie friend(s) [place] [employer]- [place] ONLY E2 OT [id number] 1 Social History Type Description Quantity Date Captured Comments Alcohol Use Details Unknown Caffeine Use Details Unknown Tobacco Use Status No Information Smoking Status No Information Sex Female Chief Complaint And Reason For Visit From encounter dated '10/12/2015 08:45'. Back Pain (chief complaint) Reason For Referral Reason For Referral No Information Plan Of Treatment Date Type Action Status Referral Ordered: INJ FORAMEN EPIDURAL L/S Appointment date/timeframe: 10/12/2015 ordered History Of Present Illness Encounter Date Complaint History Of Prese nt Illness Back Pain Patient presents for planned spinal injection. Continues to endorse low back and radiating right lower extremity pain. Back Pain Lumbar spine Lumbar spine Functional Status Date Functional Assessmen t No Information Instructions Date Instruction Additional Infor mation Activity as tolerated. Related t o Radiculopathy of lumbosacral region Take medication as directed. Rel ated to Radiculopathy of lumbosacral region Activity as tolerated. Related t o Spinal stenosis of lumbar region Take medication as directed. Rel ated to Spinal stenosis of lumbar region Assessments Type Assessment Date assessment Radiculopathy of lumbosacral reg ion assessment Spinal stenosis of lumbar region Patient Care Teams Name Effective Dates (start - stop) Status Members No Information
--- OUTSIDE RECORDS SUMMARY | 2024-06-25 14:04 | XMS_ITS | Patient Health Summary ---
Author Organization [facility] Address [address] [place] [address] Care Team Providers Care Chair Caner Name Role Phone Ashkan Mott MD Unavailable [phone] Kavon Juarez MD Primary Care Provider [phone] Note from [facility],non-owned Affiliates and Associated Physician Practices is amultiple site organization consisting of ambulatory clinics and hospital sitesin [place], [place], [place] and [place]. This disclosure is being madepursuant to the Care Everywhere program and may not contain all information available regarding this patient. Last updated 18.[facility] Allergies * Codeine(Vomiting) * Latex(Rash) -Medium Criticality Medications * Be aware that medications may not be up to date on this document. Alwaysverify current medications with the patient. * lisinopril-hydroCHLOROthiazide (Prinzide; Zestoretic) 20-12.5 MG tablet (Started 05/31/2021) Take 1 (one) tablet by mouth once daily * montelukast (Singulair) 10 MG tablet(Started 03/23/2022) Take 1 (one) tablet by mouth once daily * famotidine (Pepcid) 20 MG tablet(Started 02/17/2022) Take 1 (one) tablet by mouth 2 times daily * albuterol HFA (Proventil; Ventolin; Proair) 108 (90 Base) MCG/ACT inhaler (Started 04/10/2022) Inhale 1 (one) puff to 2 (two) puffs by mouth every 6 hours as needed for Shortness of Breath, Wheezing or Cough * oxyBUTYnin (Ditropan) 5 MG tablet Take 1 (one) tablet by mouth once daily * fluticasone-salmeterol (Advair/Wixela) 100-50 MCG/ACT inhaler(Started 06/05/2023) Inhale 1 (one) puff by mouth 2 times daily * vitamin D3 (Cholecalciferol) 25 MCG (1000 UNITS) tablet Take 1 (one) tablet by mouth once daily * MULTIPLE VITAMIN PO Take 1 tablet by mouth once daily * Biotin w/ Vitamins C & E (HAIR/SKIN/NAILS PO) Take 1 tablet by mouth once daily * docusate sodium (Colace) 100 MG capsule(Started 05/05/2024) Take 1 (one) capsule by mouth once daily as needed for Constipation Narcotics can cause constipation. Please take while taking narcotic pain medications to avoid constipation. Do not take if having loose stools. Reasons: Constipation * polyethylene glycol 3350 (MiraLax) 17 g packet(Started 05/05/2024) Take 17 (seventeen) g by mouth once daily as needed for Constipation Narcotics can cause constipation. Please take while taking narcotic pain medications to avoid constipation. Do not take if having loose stools. Reasons: Constipation * acetaminophen (Tylenol) 325 MG tablet(Started 05/25/2024) Take 2 (two) tablets by mouth every 4 hours as needed for Fever, Pain or Headache (For temperature GREATER than 101 ) Maximum allowable Acetaminophen amount = 4 Grams (4000 mg) / 24 hours. * calcium carbonate (Tums) 500 MG chew tablet(Started 05/25/2024) Take 1 (one) tablet by mouth every 2 hours as needed for Heartburn * lidocaine (Lidoderm) 5 % patch(Started 05/26/2024) Apply 1 (one) patch to skin every 24 hours Apply patch to most painful area and remove after 12 hours. May reapply a new patch 12 hours later. 3 refills by 05/25/2025 * bisacodyl (Dulcolax) 10 MG suppository(Started 05/25/2024) Insert 1 (one) suppository into the rectum once daily as needed for Constipation * prochlorperazine (Compazine) 10 MG tablet(Started 05/25/2024) Take 1 (one) tablet by mouth every 8 hours as needed for Nausea/Vomiting Reasons: Nausea and Vomiting 1 refill by 05/25/2025 * oxyCODONE, immediate release, (Roxicodone) 5 MG tablet(Started 05/25/2024) Take 1 (one) tablet by mouth every 4 hours as needed for Pain Ended Medications* amoxicillin-clavulanate (Augmentin) 875-125 MG tablet(Started 05/25/2024)() Take 1 (one) tablet by mouth every 8 hours for 5 days Reasons: Diverticulitis of the Gastrointestinal Tract Active Problems Problem Noted Date Diagnosed Date Diverticulitis of colon 05/24/2024 05/24/19 Lumbar stenosis with neurogenic claudication Senile osteoporosis 07/30/2022 04/30/2023 Spinal stenosis of lumbar re gion without neurogenic claudication 10/19/2020 04/30/2023 SUNDEEP (obstructive sleep apnea) 06/23/2019 Non morbid obesity 06/23/2019 04/30/2023 Gastroesophageal reflux disease without esophagi tis 06/23/2019 04/30/2023 Benign essential HTN 06/23/2019 04/30/2023 Exomphalos 06/12/2016 04/30/2023 Social History Tobacco Use Types Packs/Day Years Used Date Smoking Tobacco: Never Smokeless Tobacco: Never Tobacco Cessation:Counseling Given: Not Answered Alcohol Use Standard Drinks/Week Comments Yes 0 (1 standard drink = 0.6 oz pur e alcohol) beer, weekends AUDIT-C Answer Date Recorded Q1: How often do you have a drink containing alc ohol? 2-3 times a week 05/24/2024 Q2: How many drinks containi ng alcohol do you have on a typical day when you are drinking? 1 or 2 05/24/2024 Q3: How often do you have si x or more drinks on one occasion? Less than monthly 05/24/2024 Overall Financial Resource Strain (CARDIA) Answe r Date Recorded How hard is it for you to pa y for the very basics like food, housing, medical care, and heating? Not hard at all 05/25/2024 PHQ-2 Answer Date Recorded Patient Health Questionnaire-2 Score 0 02/20/2024 [facility] - Occupational Stress Questionnaire Answer Date Recorded Do you feel stress - tense, restless, nervous, or anxious, or unable to sleep at night because your mind is troubled all the time - these days? Not at all 05/25/2024 Hunger Vital Sign Answer Date Recorded Within the past 12 months, y ou worried that your food would run out before you got the money to buy more. Never true 05/25/19 25 Within the past 12 months, t he food you bought just didn't last and you didn't have money to get more. Never true 05/25/2024 PRAPARE - Transportation Answer Date Re corded In the past 12 months, has l ack of transportation kept you from medical appointments or from getting medications? No 05/16 In the past 12 months, has l ack of transportation kept you from meetings, work, or from getting things needed for daily living? No 05/25/2024 Housing Stability Vital Sign Answer Mode e Recorded In the last 12 months, was t here a time when you were not able to pay the mortgage or rent on time? No 07/02/2023 In the last 12 months, how many places have you lived? 1 07/02/2023 In the last 12 months, was t here a time when you did not have a steady place to sleep or slept in a halfway (including now)? No 07/02/2023 Housing Stability Vital Sign Answer Mode e Recorded In the last 12 months, was t here a time when you were not able to pay the mortgage or rent on time? No 05/25/2024 In the past 12 months, how m any times have you moved where you were living? 0 05/25/2024 At any time in the past 12 m [facility], were you homeless or living in a halfway (including now)? No 05/25/2024 Sex and Gender Information Value Date Recorded Sex Assigned at Not on file Gender Identity Not on file Sexual Orientation Not on file Last Filed Vital Signs Vital Sign Reading Time Taken Comments Blood Pressure 154/95 05/25/2024 7:39 AM NEWBORN PHOTOGRAPHER Pulse 62 05/25/2024 7:39 AM NEWBORN PHOTOGRAPHER Temperature 36.8 C (98.2 F) 05/25/2024 7:39 AM NEWBORN PHOTOGRAPHER Respiratory Rate 16 05/25/2024 7:39 AM NEWBORN PHOTOGRAPHER Oxygen Saturation 95% 05/25/2024 7:39 AM NEWBORN PHOTOGRAPHER Inhaled Oxygen Concentration - - Weight 68 kg (150 lb) 05/24/2024 11:43 AM NEWBORN PHOTOGRAPHER Height 165.1 cm (5' 5 ) 05/24/2024 11:43 AM NEWBORN PHOTOGRAPHER Body Mass Index 24.96 05/24/2024 11:43 AM NEWBORN PHOTOGRAPHER Procedures * CARDIAC EKG ORDER(Performed 05/25/2024) * PHOSPHORUS BLOOD(Performed 05/25/2024) Performed for Diverticulitis of colon * MAGNESIUM BLOOD(Performed 05/25/2024) Performed for Diverticulitis of colon * CBC W/O DIFFERENTIAL(Performed 05/25/2024) Performed for Diverticulitis of colon * BASIC METABOLIC PANEL (CALCIUM TOTAL)(Performed 05/25/2024) Performed for Diverticulitis of colon * URINE MICROSCOPIC ONLY REFLEX TO CULTURE(Performed 05/24/2024) * URINALYSIS REFLEX MICROSCOPIC REFLEX CULTURE(Performed 05/24/2024) * CT ABDOMEN PELVIS W CONTRAST(Performed 05/24/2024) Performed for Nausea and vomiting, unspecified vomiting type * TROPONIN-I HIGH SENSITIVE REFLEX 1HOUR(Performed 05/23/2024) * TROPONIN-I HIGH SENSITIVE BASELINE + 1HR(Performed 05/23/2024) * LIPASE BLOOD(Performed 05/23/2024) * LACTIC ACID BLOOD REFLEX TO REPEAT(Performed 05/23/2024) * COMPREHENSIVE METABOLIC PANEL(Performed 05/23/2024) * CBC W AUTO DIFFERENTIAL(Performed 05/23/2024) * EKG 12-LEAD(Performed 05/23/2024) Performed for Nausea and vomiting, unspecified vomiting type * CARDIAC RHYTHM STRIP ORDER(Performed 05/07/2024) * LARYNGEAL MASK AIRWAY(Performed 05/05/2024) * HI WRIST ARTHROSCOP,RELEASE XVERS LIG(Performed 05/05/2024) Performed for Diagnosis unknown * XR LUMBAR SPINE 2 OR 3VW(Performed 02/20/2024) Performed for S/P lumbar laminectomy, Spinal stenosis of lumbar region with neurogenic claudication * XR HAND LEFT 3VW OR MORE(Performed 01/23/2024) Performed for Bilateral hand pain * XR HAND RIGHT 3VW OR MORE(Performed 01/23/2024) Performed for Bilateral hand pain * BASIC METABOLIC PANEL (CALCIUM TOTAL)(Performed 07/04/2023) Performed for Lumbar stenosis with neurogenic claudication * CBC W/O DIFFERENTIAL(Performed 07/04/2023) Performed for Lumbar stenosis with neurogenic claudication * XR LUMBAR SPINE 2 OR 3VW(Performed 07/03/2023) Performed for Lumbar stenosis with neurogenic claudication * BASIC METABOLIC PANEL (CALCIUM TOTAL)(Performed 07/03/2023) Performed for Lumbar stenosis with neurogenic claudication * CBC W/O DIFFERENTIAL(Performed 07/03/2023) Performed for Lumbar stenosis with neurogenic claudication * FL CHRIS SURGERY(Performed 07/02/2023) Performed for Lumbar stenosis with neurogenic claudication * PERIPHERAL IV NOTE(Performed 07/02/2023) * HI LAMINEC/FACETECT/FORAMIN,LUMBAR(Performed 07/02/2023) Performed for Lumbar stenosis with neurogenic claudication * ENDOTRACHEAL TUBE NOTE(Performed 07/02/2023) * TYPE + SCREEN PANEL(Performed 07/02/2023) Performed for Pre-op evaluation * TYPE + SCREEN PANEL(Performed 06/27/2023) Performed for Pre-op evaluation * PTT [facility](Performed 06/27/2023) Performed for Spinal stenosis of lumbar region without neurogenic claudication * PT-INR [facility](Performed 06/27/2023) Performed for Spinal stenosis of lumbar region without neurogenic claudication * HEMOGLOBIN A1C(Performed 06/27/2023) Performed for Spinal stenosis of lumbar region with neurogenic claudication * C-REACTIVE PROTEIN(Performed 06/27/2023) Performed for Spinal stenosis of lumbar region with neurogenic claudication * COMPREHENSIVE METABOLIC PANEL(Performed 06/27/2023) Performed for Spinal stenosis of lumbar region with neurogenic claudication * CBC W AUTO DIFFERENTIAL(Performed 06/27/2023) Performed for Spinal stenosis of lumbar region with neurogenic claudication * URINALYSIS W/MICROSCOPIC REFLEX TO CULTURE(Performed 06/21/2023) Performed for Spinal stenosis of lumbar region with neurogenic claudication * CULTURE URINE(Performed 06/21/2023) Performed for Spinal stenosis of lumbar region with neurogenic claudication * EKG 12-LEAD(Performed 06/07/2023) Performed for Benign essential HTN * PTT(Performed 06/07/2023) Performed for Spinal stenosis of lumbar region with neurogenic claudication * PT-INR(Performed 06/07/2023) Performed for Spinal stenosis of lumbar region with neurogenic claudication * COMPREHENSIVE METABOLIC PANEL(Performed 06/07/2023) Performed for Spinal stenosis of lumbar region with neurogenic claudication * C-REACTIVE PROTEIN(Performed 06/07/2023) Performed for Spinal stenosis of lumbar region with neurogenic claudication * CBC W AUTO DIFFERENTIAL(Performed 06/07/2023) Performed for Spinal stenosis of lumbar region with neurogenic claudication * HEMOGLOBIN A1C(Performed 06/07/2023) Performed for Spinal stenosis of lumbar region with neurogenic claudication * URINE MICROSCOPIC ONLY REFLEX TO CULTURE(Performed 06/07/2023) Performed for Spinal stenosis of lumbar region with neurogenic claudication * URINALYSIS REFLEX MICROSCOPIC REFLEX CULTURE(Performed 06/07/2023) Performed for Spinal stenosis of lumbar region with neurogenic claudication * CULTURE URINE(Performed 06/07/2023) Performed for Spinal stenosis of lumbar region with neurogenic claudication * XR LUMBAR SP FLEX EXT 2 OR 3VW(Performed 06/07/2023) Performed for Spinal stenosis of lumbar region with neurogenic claudication * XR CHEST 1VW(Performed 06/07/2023) Performed for Spinal stenosis of lumbar region with neurogenic claudication * XR LUMBAR SPINE 2 OR 3VW(Performed 05/02/2023) Performed for Spinal stenosis of lumbar region with neurogenic claudication * XR CERVICAL SPINE 4 OR 5VW(Performed 05/02/2023) Performed for Myelopathy (HCC) * CT THORACIC SPINE WO CONTRAST(Performed 08/01/2022) Performed for Spinal stenosis of lumbar region with neurogenic claudication, Degenerative scoliosis, Osteoporosis, unspecified osteoporosis type, unspecified pathological fracture presence, Lumbar radiculopathy, chronic * CT LUMBAR SPINE WO CONTRAST(Performed 08/01/2022) Performed for Spinal stenosis of lumbar region with neurogenic claudication, Degenerative scoliosis, Osteoporosis, unspecified osteoporosis type, unspecified pathological fracture presence, Lumbar radiculopathy, chronic * VITAMIN D 25-HYDROXY(Performed 06/22/2022) Performed for Hypovitaminosis D * COMPREHENSIVE METABOLIC PANEL(Performed 06/22/2022) Performed for Mild intermittent asthma without complication (HCC) * CBC W/O DIFFERENTIAL(Performed 06/22/2022) Performed for Mild intermittent asthma without complication (HCC) * XR SPINE ENTIRE 2 OR 3VW(Performed 04/20/2022) Performed for Spinal stenosis of lumbar region with neurogenic claudication * MRI LUMBAR SPINE WO CONTRAST(Performed 04/18/2022) Performed for Spinal stenosis of lumbar region with neurogenic claudication * DEXA BONE DENSITY AXIAL SKELETON(Performed 04/18/2022) Performed for Spinal stenosis of lumbar region with neurogenic claudication * XR LUMBAR SPINE 2 OR 3VW(Performed 02/23/2022) Performed for Orthopedic aftercare Results * CARDIAC EKG ORDER (05/25/2024 1:33 PM NEWBORN PHOTOGRAPHER) Narrative 05/25/2024 1:33 PM NEWBORN PHOTOGRAPHER Ordered by an unspecified provider. Scanned Document CARDIAC SERVICES ORD ERABLES * CBC W/O DIFFERENTIAL (05/25/2024 2:18 AM NEWBORN PHOTOGRAPHER) Only the most recent of4 resultswithin the time period is included. WBC 4.2 4.0 - 10.7 x10E9/L 05/25/2024 2:36 AM [facility] RBC Count 4.05 3.90 - 5.20 x10E12/L 05/25/2024 2:36 AM [facility] Hemoglobin 12.6 11.9 - 15.8 g/dL 05/25/2024 2:36 AM [facility] Hematocrit 38.1 34.8 - 46.1 % 05/25/2024 2:36 AM [facility] MCV 94.1 80.0 - 98.0 fL 05/25/2024 2:36 AM [facility] MCH 31.1 26.7 - 33.6 pg 05/25/2024 2:36 AM [facility] MCHC 33.1 31.7 - 36.3 g/dL 05/25/2024 2:36 AM [facility] RDW-CV 12.8 11.3 - 14.8 % 05/25/2024 2:36 AM [facility] Platelet Count 175 150 - 420 x10E9/L 05/25/2024 2:36 AM [facility] MPV 11.2 7.8 - 11.4 fL 05/25/2024 2:36 AM [facility] Blood BLOOD SPECIMEN / Unknown Lab Venipuncture / Unknown 05/25/2024 2:18 AM NEWBORN PHOTOGRAPHER 05/25/2024 2:27 AM NEWBORN PHOTOGRAPHER Quinn Riddle MD LAB - HEMATOLOGY ORD JA[facility]ONBLES [facility] [address] [place] [address], [facility] [phone] * (ABNORMAL) BASIC METABOLIC PANEL (CALCIUM TOTAL) (05/25/2024 2:18 AM NEWBORN PHOTOGRAPHER) Only the most recent of3 resultswithin the time period is included. BUN 11 7 - 26 mg/dL 05/25/2024 2:54 AM [facility] Creatinine 0.73 0.56 - 0.96 mg/dL 05/25/2024 2:54 AM [facility] Sodium 139 136 - 145 mmol/L 05/25/2024 2:54 AM [facility] Potassium 3.9 3.5 - 4.5 mmol/L 05/25/2024 2:54 AM [facility] Chloride 106 98 - 107 mmol/L 05/25/2024 2:54 AM [facility] CO2 25 22 - 29 mmol/L 05/25/2024 2:54 AM [facility] Glucose 110(H) 70 - 99 mg/dL 05/25/2024 2:54 AM [facility] Calcium 8.8 8.4 - 10.2 mg/dL 05/25/2024 2:54 AM [facility] Anion Gap 8 6 - 16 05/25/2024 2:54 AM [facility] BUN/Creatinine Ratio 15 7 - 23 05/25/2024 2:54 AM [facility] Osmolality Calculated 288 275 - 295 mOsm/kg 05/25/2024 2:54 AM [facility] eGFR by CKD-EPI 88(L) >=90 mL/min/1.7 3 m2 05/25/2024 2:54 AM [facility] Blood BLOOD SPECIMEN / Unknown Lab Venipuncture / Unknown 05/25/2024 2:18 AM NEWBORN PHOTOGRAPHER 05/25/2024 2:28 AM [facility] Quinn Riddle MD LAB - CHEMISTRY [facility] [address] [address], [facility] [phone] * PHOSPHORUS BLOOD (05/25/2024 2:18 AM NEWBORN PHOTOGRAPHER) Phosphorus 3.2 2.9 - 5.1 mg/dL 05/25/2024 8:02 AM [facility] Blood BLOOD SPECIMEN / Unknown Lab Venipuncture / Unknown 05/25/2024 2:18 AM NEWBORN PHOTOGRAPHER 05/25/2024 2:28 AM NEWBORN PHOTOGRAPHER [facility] - CHEMISTRY ORDERABLES [address] [address], [facility] [phone] * MAGNESIUM BLOOD (05/25/2024 2:18 AM NEWBORN PHOTOGRAPHER) Magnesium 1.6 1.6 - 2.6 mg/dL 05/25/2024 8:02 AM [facility] Blood BLOOD SPECIMEN / Unknown Lab Venipuncture / Unknown 05/25/2024 2:18 AM NEWBORN PHOTOGRAPHER 05/25/2024 2:28 AM NEWBORN PHOTOGRAPHER [facility] - CHEMISTRY ORDERABLES [address] [address], [facility] [phone] * (ABNORMAL) URINE MICROSCOPIC ONLY REFLEX TO CULTURE (05/24/2024 4:33 AM NEWBORN PHOTOGRAPHER) Only the most recent of2 resultswithin the time period is included. Reflex Status Culture not indicated 05/24/2024 5:28 AM [facility] WBC UA 6-10(A) None Seen, 0-5 /HPF 05/24/2024 5:28 AM [facility] Squamous Epithelial Cells UA 0-2 None Seen, 0-2, 3-5 /HPF 05/24/2024 5:28 AM [facility] Mucus UA 3+ /LPF 05/24/2024 5:28 AM [facility] Urine URINE SPECIMEN OBTAINED BY CLEAN CATCH PROCEDURE / Unknown Collection / Unknown 05/24/2024 4:33 AM NEWBORN PHOTOGRAPHER 05/24/2024 4:44 AM [facility] - 05/24/2024 5:28 AM NEWBORN PHOTOGRAPHER Damian Sosa MD LAB - URINALYSIS ORD ERABLES [facility] [address] [place] [address], [facility] [phone] * (ABNORMAL) URINALYSIS REFLEX MICROSCOPIC REFLEX CULTURE (05/24/2024 4:33 AM NEWBORN PHOTOGRAPHER) Only the most recent of2 resultswithin the time period is included. Color UA Yellow Straw, Yellow 05/24/2024 4:59 AM [facility] Clarity UA Clear Clear 05/24/2024 4:59 AM [facility] Specific [place] UA 1.038(H) 1.005 - 1.030 05/24/2024 4:59 AM [facility] pH UA 5.0 5.0 - 8.0 pH 05/24/2024 4:59 AM [facility] Protein UA 1+(A) Negative 05/24/2024 4:59 AM [facility] Glucose UA Negative Negative 05/24/2024 4:59 AM [facility] Ketone UA 1+(A) Negative 05/24/2024 4:59 AM [facility] Bilirubin UA Negative Negative 05/24/2024 4:59 AM [facility] Blood UA Negative Negative 05/24/2024 4:59 AM [facility] Nitrite UA Negative Negative 05/24/2024 4:59 AM [facility] Leukocyte Esterase Negative Negative 05/24/2024 4:59 AM [facility] Urobilinogen UA Negative Negative mg/dL 05/24/2024 4:59 AM [facility] Urine URINE SPECIMEN OBTAINED BY CLEAN CATCH PROCEDURE / Unknown Collection / Unknown 05/24/2024 4:33 AM [facility] 05/24/2024 4:44 AM [facility] - 05/24/2024 4:59 AM NEWBORN PHOTOGRAPHER Damian Sosa MD LAB - URINALYSIS ORD ERABLES [facility] [address] [place] [address], [facility] [phone] * CT Abdomen Pelvis W Contrast (05/24/2024 3:34 AM NEWBORN PHOTOGRAPHER) Anatomical Region Laterality Modality Abdomen, Pelvis Computed Tomogra phy 05/24/2024 4:12 AM NEWBORN PHOTOGRAPHER Impressions 05/24/2024 10:22 AM NEWBORN PHOTOGRAPHER IMPRESSION: 1.Findings suggestive of acute, uncomplicated diverticulitis with small volume of free fluid adjacent to the sigmoid colon and a small focus of extraluminal air. Mild dilation of adjacent loops small bowel likely reflecting reactive ileus. 2.Moderate sized hiatal hernia. 3.Solitary right kidney. > Dictated by Malachi Johnson MD (transporter radiology). I, Saira Fleming MD have personally reviewed and interpreted this examination/study. > Interpreting Provider: Saira Fleming MD on 05/24/2024 10:22 AM Narrative 05/24/2024 10:22 AM NEWBORN PHOTOGRAPHER PROCEDURE: CT ABDOMEN PELVIS W CONTRAST, DATE/TIME OF EXAM: 05/24/2024 3:34 AM, LOCATION [facility] INDICATION: R11.2: Nausea and vomiting, unspecified vomiting type ADDITIONAL CLINICAL INFORMATION: Ordering Provider Reason For Exam: Diverticulitis vs other intraabdominal pathology COMPARISON: None. TECHNIQUE: CT of the abdomen and pelvis was performed following the uneventful administration of 100 mL of Isovue 370 intravenous contrast according to standard protocol. FINDINGS: Lower Chest: Calcified granuloma in the left lower lobe, otherwise the lung bases are clear. Moderate-sized hiatal hernia. The coronary arteries are atherosclerotic. Liver: Normal. Gallbladder and Bile Ducts: Normal. Spleen: Normal. Pancreas: Normal. Adrenals: Normal. 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 The right kidney appears normal. Gastrointestinal: In the region of the sigmoid colon, there is an adjacent small volume of free fluid and a small focus of air which appears to be extraluminal (series 3, image 116; series 4, image 116), suggestive of acute diverticulitis. There are some adjacent mildly dilated loops of small bowel measuring up to 3.2 cm in diameter (series 3, image 110), which may reflect a component of reactive ileus. The appendix is not seen; however, no inflammatory changes are seen in the right lower quadrant. Moderate hiatal hernia. Mesentery/Peritoneum/Retroperitoneum: There is a small volume of free intraperitoneal fluid. Bladder: Normal. Reproductive Organs: The uterus is absent. Vasculature: Atherosclerotic calcification of the aorta and its branch vessels. There are 2 accessory right renal arteries. Bones: Bone windows demonstrate no suspicious lytic or blastic lesions. The visible osseous structures are intact. Degenerative changes are seen in the spine. Surgical changes of posterior decompression are present at the L4-L5. Soft tissues: Normal. Procedure Note Saira Fleming MD - 05/24/2024 PROCEDURE: CT ABDOMEN PELVIS W CONTRAST, DATE/TIME OF EXAM: :34 AM, LOCATION [facility] INDICATION: R11.2: Nausea and vomiting, unspecified vomiting type ADDITIONAL CLINICAL INFORMATION: Ordering Provider Reason For Exam: Diverticulitis vs otherintraabdominal pathology COMPARISON: None. TECHNIQUE: CT of the abdomen and pelvis was performed following the uneventful administration of 100 mL of Isovue 370 intravenous contrast according to standard protocol. FINDINGS: Lower Chest: Calcified granuloma in the left lower lobe, otherwise the lung bases are clear. Moderate-sized hiatal hernia. The coronary arteries are atherosclerotic. Liver: Normal. Gallbladder and Bile Ducts: Normal. Spleen: Normal. Pancreas: Normal. Adrenals: Normal. 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 The right kidney appears normal. Gastrointestinal: In the region of the sigmoid colon, there is an adjacent small volume of free fluid and a small focus of air which appears to be extraluminal (series 3, image 116; series 4, image 116), suggestive of acute diverticulitis. There are some adjacent mildly dilated loops of smallbowel measuring up to 3.2 cm in diameter (series 3, image 110), which mayreflect a component of reactive ileus. The appendix is not seen; however, no inflammatory changes are seen in the right lower quadrant. Moderatehiatal hernia. Mesentery/Peritoneum/Retroperitoneum: There is a small volume of free intraperitoneal fluid. Bladder: Normal. Reproductive Organs: The uterus is absent. Vasculature: Atherosclerotic calcification of the aorta and its branch vessels. There are 2 accessory right renal arteries. Bones: Bone windows demonstrate no suspicious lytic or blastic lesions. The visible osseous structures are intact. Degenerative changes are seen inthe spine. Surgical changes of posterior decompression are present at the L4-L5. Soft tissues: Normal. IMPRESSION: 1.Findings suggestive of acute, uncomplicated diverticulitis with small volume of free fluid adjacent to the sigmoid colon and a small focus of extraluminal air. Mild dilation of adjacent loops small bowel likely reflecting reactive ileus. 2.Moderate sized hiatal hernia. 3.Solitary right kidney. > Dictated by Malachi Johnson MD (transporter radiology). I, Saira Fleming MD have personally reviewed and interpreted this examination/study. > Interpreting Provider: Saira Fleming MD on 05/24/2024 10:22 AM Damian Sosa MD CT ORDERABLES * TROPONIN-I HIGH SENSITIVE REFLEX 1HOUR (05/23/2024 11:53 PM NEWBORN PHOTOGRAPHER) Troponin I High Sensitive 4 <=14 ng/L 05/24/2024 12:54 AM NEWBORN PHOTOGRAPHER [facility] Delta Troponin I HS 05/24/2024 12:54 AM [facility] Comment:Delta value intentio kashif not calculated. Baseline to 1 hour specimen collection interval exceeded. Blood BLOOD SPECIMEN / Unknown Venipuncture / Unknown 05/23/2024 11:53 PM NEWBORN PHOTOGRAPHER 05/24/2024 12:15 AM NEWBORN PHOTOGRAPHER Nereida Bae MD LAB - CHEMISTRY AMADO DENG [facility] [address] [place] [address], [facility] [phone] * LACTIC ACID BLOOD REFLEX TO REPEAT (05/23/2024 11:34 PM NEWBORN PHOTOGRAPHER) Lactic Acid-Stat 1.5 <=2.0 mmol/L 05/24/2024 12:07 AM NEWBORN PHOTOGRAPHER [facility] Blood BLOOD SPECIMEN / Unknown Venipuncture / Unknown 05/23/2024 11:34 PM NEWBORN PHOTOGRAPHER 05/23/2024 11:38 PM NEWBORN PHOTOGRAPHER Nereida Bae MD LAB - CHEMISTRY AMADO DENG Performing Organization Address City/[facility]/ZIP Co de Phone Number [address] [address], [facility] [phone] * TROPONIN-I HIGH SENSITIVE BASELINE + 1HR (05/23/2024 11:34 PM NEWBORN PHOTOGRAPHER) [facility] Troponin I High Sensitive 4 <=14 ng/L 05/24/2024 12:16 AM [facility] Blood BLOOD SPECIMEN / Unknown Venipuncture / Unknown 05/23/2024 11:34 PM NEWBORN PHOTOGRAPHER 05/23/2024 11:39 PM NEWBORN PHOTOGRAPHER Nereida Bae MD LAB - CHEMISTRY AMADO DENG Performing Organization Address [facility]/ZIP Co de Phone Number [address] [address], [facility] [phone] * (ABNORMAL) CBC W AUTO DIFFERENTIAL (05/23/2024 11:34 PM NEWBORN PHOTOGRAPHER) Only the most recent of3 resultswithin the time period is included. [facility] WBC 13.5(H) 4.0 - 10.7 x10E9/L 05/23/2024 11:45 PM [facility] RBC Count 5.20 3.90 - 5.20 x10E12/L 05/23/2024 11:45 PM [facility] Hemoglobin 16.1(H) 11.9 - 15.8 g/dL 05/23/2024 11:45 PM [facility] Hematocrit 47.5(H) 34.8 - 46.1 % 05/23/2024 11:45 PM [facility] MCV 91.3 80.0 - 98.0 fL 05/23/2024 11:45 PM [facility] MCH 31.0 26.7 - 33.6 pg 05/23/2024 11:45 PM [facility] MCHC 33.9 31.7 - 36.3 g/dL 05/23/2024 11:45 PM [facility] RDW-CV 12.6 11.3 - 14.8 % 05/23/2024 11:45 PM [facility] Platelet Count 236 150 - 420 x10E9/L 05/23/2024 11:45 PM [facility] MPV 11.3 7.8 - 11.4 fL 05/23/2024 11:45 PM [facility] Neutrophil % 94.2(H) 41.0 - 74.0 % 05/23/2024 11:45 PM [facility] Lymphocyte % 2.2(L) 17.0 - 47.0 % 05/23/2024 11:45 PM [facility] Monocyte % 3.2 3.0 - 11.0 % 05/23/2024 11:45 PM [facility] Eosinophil % 0.0 0.0 - 7.0 % 05/23/2024 11:45 PM [facility] Basophil % 0.1 0.0 - 1.6 % 05/23/2024 11:45 PM [facility] Immature Granulocytes % 0.3 0.0 - 1.0 % 05/23/2024 11:45 PM [facility] Neutrophil Absolute 12.68(H) 1.60 - 7.50 x10E9/L 05/23/2024 11:45 PM [facility] Lymphocyte Absolute 0.30(L) 1.00 - 4.40 x10E9/L 05/23/2024 11:45 PM [facility] Monocyte Absolute 0.43 0.15 - 1.00 x10E9/L 05/23/2024 11:45 PM [facility] Eosinophil Absolute 0.00 0.00 - 0.60 x10E9/L 05/23/2024 11:45 PM [facility] Basophil Absolute 0.02 0.00 - 0.13 x10E9/L 05/23/2024 11:45 PM [facility] Blood BLOOD SPECIMEN / Unknown Venipuncture / Unknown 05/23/2024 11:34 PM NEWBORN PHOTOGRAPHER 05/23/2024 11:39 PM [facility] Nereida Bae MD LAB - HEMATOLOGY ORD ERABLES [facility] [address] [place] [address], [facility] [phone] * (ABNORMAL) COMPREHENSIVE METABOLIC PANEL (05/23/2024 11:34 PM [facility]) Only the most recent of4 resultswithin the time period is included. BUN 20 7 - 26 mg/dL 05/24/2024 12:11 AM [facility] Creatinine 0.75 0.56 - 0.96 mg/dL 05/24/2024 12:11 AM [facility] Sodium 140 136 - 145 mmol/L 05/24/2024 12:11 AM [facility] Potassium 4.1 3.5 - 4.5 mmol/L 05/24/2024 12:11 AM [facility] Chloride 104 98 - 107 mmol/L 05/24/2024 12:11 AM [facility] CO2 23 22 - 29 mmol/L 05/24/2024 12:11 AM [facility] Glucose 165(H) 70 - 99 mg/dL 05/24/2024 12:11 AM [facility] Calcium 10.3(H) 8.4 - 10.2 mg/dL 05/24/2024 12:11 AM [facility] Protein Total 7.6 6.0 - 8.3 g/dL 05/24/2024 12:11 AM [facility] Albumin 4.2 3.4 - 5.0 g/dL 05/24/2024 12:11 AM [facility] Bilirubin Total 0.6 0.2 - 1.2 mg/dL 05/24/2024 12:11 AM [facility] Alkaline Phosphatase 75 40 - 150 U/L 05/24/2024 12:11 AM [facility] ALT 18 5 - 55 U/L 05/24/2024 12:11 AM [facility] AST 17 5 - 34 U/L 05/24/2024 12:11 AM [facility] Anion Gap 13 6 - 16 05/24/2024 12:11 AM [facility] BUN/Creatinine Ratio 27(H) 7 - 23 05/24/2024 12:11 AM [facility] Osmolality Calculated 296(H) 275 - 295 mOsm/kg 05/24/2024 12:11 AM [facility] Albumin/Globulin Ratio 1.2 1.1 - 2.3 05/24/2024 12:11 AM [facility] eGFR by CKD-EPI 85(L) >=90 mL/min/1.7 3 m2 05/24/2024 12:11 AM [facility] Blood BLOOD SPECIMEN / Unknown Venipuncture / Unknown 05/23/2024 11:34 PM NEWBORN PHOTOGRAPHER 05/23/2024 11:39 PM NEWBORN PHOTOGRAPHER Nereida Bae MD LAB - CHEMISTRY AMADO DENG [facility] [address] [place] [address], [place] [phone] * LIPASE BLOOD (05/23/2024 11:34 PM NEWBORN PHOTOGRAPHER) Pathologist [facility] Lipase 10 8 - 78 U/L 05/24/2024 12:11 AM [facility] Blood BLOOD SPECIMEN / Unknown Venipuncture / Unknown 05/23/2024 11:34 PM NEWBORN PHOTOGRAPHER 05/23/2024 11:39 PM NEWBORN PHOTOGRAPHER Narrative [facility] - 05/24/2024 12:11 AM NEWBORN PHOTOGRAPHER Lipase results from the Ha Alinity analyzer may not be comparable with other methodologies. Nereida Bae MD LAB - CHEMISTRY AMADO DENG Performing Organization Address City/[facility]/ZIP Co de Phone Number [facility] [address] [place] [address], [place] [phone] * EKG 12-LEAD (05/23/2024 10:48 PM NEWBORN PHOTOGRAPHER) Only the most recent of2 resultswithin the time period is included. Ventricular Rate 82 BPM [facility] Atrial Rate 82 BPM [facility] P-R Interval 140 ms [facility] QRS Duration ms 86 ms [facility] Q-T Interval ms 364 ms [facility] QTC Calculation (Bezet) 425 ms [facility] Calculated P [place] 59 degrees [facility] Calculated R [place] -8 degrees [facility] Calculated T [place] 47 degrees [facility] Interpretation EKG NORMAL SINUS RHYTHM POOR R WAVE PROGRESSION BORDERLINE ECG WHEN COMPARED WITH ECG OF 07-JUN-2023 12:52, POOR R WAVE PROGRESSION Now present Confirmed by CHIN CANNON MD ([id number]) on 05/28/2024 8:47:28 AM [facility] 05/23/2024 10:4 8 PM NEWBORN PHOTOGRAPHER 05/28/2024 8:47 AM NEWBORN PHOTOGRAPHER Nereida Bae MD ECG ORDERABLES [facility] * CARDIAC RHYTHM STRIP ORDER (05/07/2024 7:11 PM NEWBORN PHOTOGRAPHER) Narrative 05/07/2024 7:11 PM NEWBORN PHOTOGRAPHER Ordered by an unspecified provider. Scanned Document CARDIAC SERVICES ORD ERABLES * LARYNGEAL MASK AIRWAY (05/05/2024 7:43 AM NEWBORN PHOTOGRAPHER) Narrative Yasmin Villasenor APRN-CRNA - 05/05/2024 7:43 AM NEWBORN PHOTOGRAPHER Yasmin Villasenor APRN-CRNA 05/05/2024 7:43 AM LMA Placement Procedure/LDA Note: Patient Location: OR. LMA Insertion Date/Time: 05/05/2024 7:41 AM Procedure: LMA Pretreatment: 100% O2 Induction: standard IV Patient position: sniffing. Mask Ventilation: easy Type: LMA Size: 4 Number of Attempts: 1. Cuff volume (mL): 3 Placement verified by: bilateral breath sounds and CO2 detector Dentition unchanged? Yes Procedure Start Time: 05/05/2024 7:41 AM. Staff Section Anesthesia Provider: Yasmin Villasenor APRN-CRNA, Performed the procedure Luther Min MD GENERAL ANESTHESIA O RDERABLES * XR Lumbar Spine 2 or 3Vw (02/20/2024 9:55 AM NEWBORN PHOTOGRAPHER) Only the most recent of4 resultswithin the time period is included. Anatomical Region Laterality Modality Spine Computed Radiogr aphy 02/20/2024 9:56 AM NEWBORN PHOTOGRAPHER Impressions 02/20/2024 10:49 AM NEWBORN PHOTOGRAPHER IMPRESSION: No acute fracture or malalignment identified. No significant change from prior. > Dictated by Blaise Muhammad DO (transporter radiology). Ángel Sheridan MD have personally reviewed and interpreted this examination/study. > Interpreting Provider: Ángel Knight MD on 02/20/2024 10:49 AM Narrative 02/20/2024 10:49 AM NEWBORN PHOTOGRAPHER PROCEDURE: XR LUMBAR SPINE 2 OR 3VW, DATE/TIME OF EXAM: 02/20/2024 9:55 AM, LOCATION [facility] INDICATION: Z98.890: S/P lumbar laminectomy M48.062: Spinal stenosis of lumbar region with neurogenic claudication COMPARISON: X-ray spine 07/03/2023 FINDINGS: There is levoscoliosis of the lumbar spine. Laminectomy changes are seen from L3 to S1. There is no fracture or compression deformity. Degenerative disc disease is seen at L5-S1. Multilevel moderate degenerative changes of the facets are seen. Bone density and texture are normal. The aorta is atherosclerotic. Procedure Note Ángel Knight MD - 02/20/2024 PROCEDURE: XR LUMBAR SPINE 2 OR 3VW, DATE/TIME OF EXAM: 02/20/2024 9:55 AM, LOCATION [facility] INDICATION: Z98.890: S/P lumbar laminectomy M48.062: Spinal stenosis of lumbar region with neurogenic claudication COMPARISON: X-ray spine 07/03/2023 FINDINGS: There is levoscoliosis of the lumbar spine. Laminectomy changes are seen from L3 to S1. There is no fracture or compression deformity.Degenerative disc disease is seen at L5-S1. Multilevel moderate degenerative changesof the facets are seen. Bone density and texture are normal. The aorta is atherosclerotic. IMPRESSION: No acute fracture or malalignment identified. No significant change from prior. > Dictated by Blaise Muhammad DO (transporter radiology). Ángel Sheridan MD have personally reviewed and interpreted this examination/study. > Interpreting Provider: Ángel Knight MD on 0:49 AM Kaiden Sapp MD DIAGNOSTIC IMAGING O RDERABLES * XR Hand Left 3Vw or More (01/23/2024 11:22 AM CDT) Anatomical Region Laterality Modality Wrist / Hand Radiographic Maggi ging 01/24/2024 8:21 AM CDT Impressions 01/24/2024 9:12 AM CDT Impression: 1. Right hand: Moderate arthritic changes worse at the first carpometacarpal joint, but also scattered throughout the DIP and PIP joints. Significant joint space narrowing is present at the second MCP joint. 2. Left hand: Mild to moderate arthritic changes worst at the first carpometacarpal joint and also scattered throughout the DIP and PIP joints. Report dictated by Cameron Morales DO (transporter radiology). IRadha MD have personally reviewed and interpreted this examination/study. > Interpreting Provider: Radha Thompson MD on 01/24/2024 9:12 AM Narrative 01/24/2024 9:12 AM CDT PROCEDURE: XR HAND RIGHT 3VW OR MORE, XR HAND LEFT 3VW OR MORE, DATE/TIME OF EXAM: 01/23/2024 11:22 AM, LOCATION [facility] INDICATION: M79.641: Bilateral hand pain M79.642: Bilateral hand pain ADDITIONAL CLINICAL INFORMATION: Ordering Provider Reason For Exam: hand pain Technologist Note: Additional: None. COMPARISON: None. FINDINGS: Right hand: No fracture or dislocation is present. Moderate arthritic changes are present with joint space narrowing, subchondral sclerosis and osteophyte formation at the second metacarpophalangeal joint, first carpometacarpal joint and multiple DIP and PIP joints. Osteophyte formations. No definite erosions are seen. Bone density is normal. The soft tissues are normal. Left hand: No fracture or dislocation is present. Mild to moderate arthritic changes with joint space narrowing, subchondral sclerosis, subchondral cysts and osteophyte formation most prominent at multiple DIP, PIP joints and the first carpometacarpal joint. There is mild joint space narrowing at the metacarpophalangeal joints. No erosions are seen. Bone density is normal. The soft tissues are normal. Procedure Note Radha Thompson MD - 01/24/2024 PROCEDURE: XR HAND RIGHT 3VW OR MORE, XR HAND LEFT 3VW OR MORE,DATE/TIME OF EXAM: 01/23/2024 11:22 AM, LOCATION [facility] INDICATION: M79.641: Bilateral hand pain M79.642: Bilateral hand pain ADDITIONAL CLINICAL INFORMATION: Ordering Provider Reason For Exam: hand pain Technologist Note: Additional: None. COMPARISON: None. FINDINGS: Right hand: No fracture or dislocation is present. Moderate arthritic changes are present with joint space narrowing, subchondral sclerosis and osteophyte formation at the second metacarpophalangeal joint, first carpometacarpal joint and multiple DIP and PIP joints. Osteophyte formations. Nodefinite erosions are seen. Bone density is normal. The soft tissues are normal. Left hand: No fracture or dislocation is present. Mild to moderate arthriticchanges with joint space narrowing, subchondral sclerosis, subchondral cysts and osteophyte formation most prominent at multiple DIP, PIP joints and the first carpometacarpal joint. There is mild joint space narrowing at the metacarpophalangeal joints. No erosions are seen. Bone density is normal. The soft tissues are normal. Impression: 1. Right hand: Moderate arthritic changes worse at the first carpometacarpal joint, but also scattered throughout the DIP and PIP joints. Significant joint space narrowing is present at the second MCP joint. 2. Left hand: Mild to moderate arthritic changes worst at the first carpometacarpal joint and also scattered throughout the DIP and PIPjoints. Report dictated by Cameron Morales DO (transporter radiology). I, Radha Thompson MD have personally reviewed and interpreted this examination/study. > Interpreting Provider: Radha Thompson MD on 01/24/2024 9:12 AM Shahzad Vaughn MD DIAGNOSTIC IMAGING O RDERABLES * XR Hand Right 3Vw or More (01/23/2024 11:22 AM CDT) Anatomical Region Laterality Modality Wrist / Hand Radiographic Maggi ging 01/24/2024 8:21 AM CDT Impressions 01/24/2024 9:12 AM CDT Impression: 1. Right hand: Moderate arthritic changes worse at the first carpometacarpal joint, but also scattered throughout the DIP and PIP joints. Significant joint space narrowing is present at the second MCP joint. 2. Left hand: Mild to moderate arthritic changes worst at the first carpometacarpal joint and also scattered throughout the DIP and PIP joints. Report dictated by Cameron Morales DO (transporter radiology). IRadha MD have personally reviewed and interpreted this examination/study. > Interpreting Provider: Radha Thompson MD on 01/24/2024 9:12 AM Narrative 01/24/2024 9:12 AM CDT PROCEDURE: XR HAND RIGHT 3VW OR MORE, XR HAND LEFT 3VW OR MORE, DATE/TIME OF EXAM: 01/23/2024 11:22 AM, LOCATION [facility] INDICATION: M79.641: Bilateral hand pain M79.642: Bilateral hand pain ADDITIONAL CLINICAL INFORMATION: Ordering Provider Reason For Exam: hand pain Technologist Note: Additional: None. COMPARISON: None. FINDINGS: Right hand: No fracture or dislocation is present. Moderate arthritic changes are present with joint space narrowing, subchondral sclerosis and osteophyte formation at the second metacarpophalangeal joint, first carpometacarpal joint and multiple DIP and PIP joints. Osteophyte formations. No definite erosions are seen. Bone density is normal. The soft tissues are normal. Left hand: No fracture or dislocation is present. Mild to moderate arthritic changes with joint space narrowing, subchondral sclerosis, subchondral cysts and osteophyte formation most prominent at multiple DIP, PIP joints and the first carpometacarpal joint. There is mild joint space narrowing at the metacarpophalangeal joints. No erosions are seen. Bone density is normal. The soft tissues are normal. Procedure Note Radha Thompson MD - 01/24/2024 PROCEDURE: XR HAND RIGHT 3VW OR MORE, XR HAND LEFT 3VW OR MORE,DATE/TIME OF EXAM: 01/23/2024 11:22 AM, LOCATION [facility] INDICATION: M79.641: Bilateral hand pain M79.642: Bilateral hand pain ADDITIONAL CLINICAL INFORMATION: Ordering Provider Reason For Exam: hand pain Technologist Note: Additional: None. COMPARISON: None. FINDINGS: Right hand: No fracture or dislocation is present. Moderate arthritic changes are present with joint space narrowing, subchondral sclerosis and osteophyte formation at the second metacarpophalangeal joint, first carpometacarpal joint and multiple DIP and PIP joints. Osteophyte formations. Nodefinite erosions are seen. Bone density is normal. The soft tissues are normal. Left hand: No fracture or dislocation is present. Mild to moderate arthriticchanges with joint space narrowing, subchondral sclerosis, subchondral cysts and osteophyte formation most prominent at multiple DIP, PIP joints and the first carpometacarpal joint. There is mild joint space narrowing at the metacarpophalangeal joints. No erosions are seen. Bone density is normal. The soft tissues are normal. Impression: 1. Right hand: Moderate arthritic changes worse at the first carpometacarpal joint, but also scattered throughout the DIP and PIP joints. Significant joint space narrowing is present at the second MCP joint. 2. Left hand: Mild to moderate arthritic changes worst at the first carpometacarpal joint and also scattered throughout the DIP and PIPjoints. Report dictated by Cameron Morales DO (transporter radiology). I, Radha Thompson MD have personally reviewed and interpreted this examination/study. > Interpreting Provider: Radha Thompson MD on 01/24/2024 9:12 AM Shahzad Vaughn MD DIAGNOSTIC IMAGING O RDERABLES * FL CHRIS SURGERY (07/02/2023 11:35 AM CDT) Narrative [facility] - 07/02/2023 2:43 PM CDT Fluoroscopy was used for this exam in the OR. Please see the Operative report. Kaiden Sapp MD FLUOROSCOPY ORDERABL ES [facility] * IV PLACEMENT PERFORMABLE (07/02/2023 9:07 AM CDT) Narrative Mrayjane Douglass APRN-OPERATOR SUPPLY - 07/02/2023 9:07 AM CDT Maryjane Douglass APRN-LEAH 07/02/2023 9:08 AM Peripheral IV Line Placement: Patient Location: OR Insertion Time: 07/02/2023 8:27 AM Procedure: IV start ([id number]). Procedure Section: Orientation: left Location: hand Catheter Gauge: 18 Number of Attempts: 1. Procedure Tolerance: performed while patient under general anesthesia. Staff Section Anesthesia Provider: Maryjane Douglass APRN-CRNA, Performed the procedure Provider #1: Dominic Cottrell MD. Dominic Cottrell MD GENERAL ANESTH ESIA ORDERABLES * ETT LINE PERFORMABLE (07/02/2023 9:00 AM CDT) Narrative Maryjane Douglass APRN-CRNA - 07/02/2023 9:00 AM CDT Maryjane Douglass APRN-CRNA 07/02/2023 9:01 AM Endotracheal Tube Placement: Patient Location: OR. Intubation Event Date/Time: 07/02/2023 8:23 AM Procedure: intubation ([id number]). Procedure Section: Induction: rapid sequence Patient Position: sniffing Mask Ventilation: not attempted. Blade Type: Video Blade Size: 3 Laryngoscopy View: grade 1 (full cords) Intubation Adjuncts: stylet and video laryngoscope Tube: endotracheal tube Placement: oral Tube type: cuff - inflated Tube Size (MM): 7 Depth of Insertion (CM): 22 Measured From: teeth Cuff Inflated With: air Number of Attempts: 1. Placement Verified By: direct visualization, bilateral breath sounds, chest auscultation and CO2 monitor Tube secured with: adhesive tape and ETT brito. Dentition unchanged? Yes Difficult Airway? No. Procedure Start Time: 07/02/2023 8:23 AM. Staff Section Anesthesia Provider: Maryjane Douglass APRN-CRNA, Performed the procedure Provider #1: Dominic Cottrell MD. Additional Comments: Mouth guard used on top teeth. Dominic Cottrell MD GENERAL ANESTH ESIA ORDERABLES * TYPE + SCREEN PANEL (07/02/2023 6:49 AM CDT) Only the most recent of2 resultswithin the time period is included. Antibody Screen NEG 7:41 AM CDT [facility] ABO Rh O POS 07/02/2023 7:41 AM CDT [facility] Blood Bank BLOOD SPECIMEN / Unknown Line Draw / Unknown 07/02/2023 6:49 AM CDT 07/02/2023 6:52 AM CDT Kate Stapleton APRN-E COMMERCE STRATEGIST LAB - BLO OD BANK ORDERABLES Performing Organization Address [facility] Co de Phone Number [facility] [address] [place] [phone], [facility] [phone] * PTT [facility] (06/27/2023 9:39 AM CDT) APTT 31.4 23.0 - 38.4 Seconds 06/27/2023 11:09 AM CDT [facility] Comment:Suggested therapeuti c range for full dose I.V. unfractionated heparin therapy for venous thromboembolism is 71 to 109 seconds. Blood BLOOD SPECIMEN / Unknown Lab Venipuncture / Unknown 06/27/2023 9:39 AM CDT 06/27/2023 9:48 AM CDT Kaiden Sapp MD LAB - COAGULATION OR DERABLES Performing Organization Address [facility] Co de Phone Number [facility] [address] [address], [facility] [phone] * PT-INR [facility] (06/27/2023 9:39 AM CDT) PT 13.1 12.1 - 14.8 Seconds 06/27/2023 11:09 AM CDT [facility] INR 1.0 See Comment 06/27/2023 11:09 AM CDT [facility] Comment:The suggested therap eutic range for standard coumadin (warfarin) therapy is an INR of 2.0-3.0. For high-risk patients (Mechanical Mitral Valve Prosthesis, etc.), the suggested prophylactic therapeutic range is an INR of 2.5-3.5. Blood BLOOD SPECIMEN / Unknown Lab Venipuncture / Unknown 06/27/2023 9:39 AM CDT 06/27/2023 9:48 AM CDT Kaiden Sapp MD LAB - COAGULATION OR DERABLES Performing Organization Address City/[facility]/ZIP Co de Phone Number [facility] [address] [place] [address], [place] [phone] * C-REACTIVE PROTEIN (06/27/2023 9:39 AM CDT) Only the most recent of2 resultswithin the time period is included. C-Reactive Protein 0.5 <=0.5 mg/dL 06/27/2023 10:23 AM CDT [facility] Blood BLOOD SPECIMEN / Unknown Lab Venipuncture / Unknown 06/27/2023 9:39 AM CDT 06/27/2023 9:53 AM CDT Kaiden Sapp MD LAB - CHEMISTRY ORDE RABLES Performing Organization Address City/[facility]/ZIP Co de Phone Number [address] [address], [facility] [phone] * HEMOGLOBIN A1C (06/27/2023 9:39 AM CDT) Only the most recent of2 resultswithin the time period is included. Hemoglobin A1c 5.2 <=5.6 % 06/27/2023 5:21 PM CDT [facility] Estimated Average Glucose 103 mg/dL 06/27/2023 5:21 PM CDT [facility] Comment: HbA1c Interpretation: Normal : < 5.7% Pre-diabetes: 5.7-6.4% Diabetes: Equal to or greater than 6.5% Test results diagnostic of diabetes should be repeated for confirmation. Treatment target values recommended by ADA and other clinical organizations should be used to evaluate metabolic control in patients. Reference: [place] [employer], Standards of Care in Diabetes -2020 In patients 70 years and older consider HbA1c target range of 7.0-7.5% (Reference: Rajan Romo et al. JAMDA. 2012) The Sebia assay for the measurement of HbA1c is a National Glycohemoglobin Standardization Program (NGSP) certified method. Blood BLOOD SPECIMEN / Unknown Lab Venipuncture / Unknown 06/27/2023 9:39 AM CDT 06/27/2023 9:53 AM CDT Kaiden Sapp MD LAB - CHEMISTRY AMADO Philip Organization Address City/State/ZIP Co de Phone Number [address] [phone], [facility] [phone] * (ABNORMAL) URINALYSIS W/MICROSCOPIC REFLEX TO CULTURE (06/21/2023 4:07 PM NEWBORN PHOTOGRAPHER) Color UA Straw Straw, Yellow 06/21/2023 4:32 PM [facility] Clarity UA Clear Clear 06/21/2023 4:32 PM [facility] Specific [place] UA 1.002(L) 1.005 - 1.030 06/21/2023 4:32 PM [facility] pH UA 6.0 5.0 - 8.0 pH 06/21/2023 4:32 PM [facility] Protein UA Negative Negative 06/21/2023 4:32 PM [facility] Glucose UA Negative Negative 06/21/2023 4:32 PM [facility] Ketone UA Trace(A) Negative 06/21/2023 4:32 PM [facility] Bilirubin UA Negative Negative 06/21/2023 4:32 PM [facility] Blood UA Negative Negative 06/21/2023 4:32 PM [facility] Nitrite UA Negative Negative 06/21/2023 4:32 PM [facility] Leukocyte Esterase Trace(A) Negative 06/21/2023 4:32 PM [facility] Urobilinogen UA Negative Negative mg/dL 06/21/2023 4:32 PM [facility] RBC UA 0-2 None Seen, 0-2, 3-5 /HPF 06/21/2023 4:32 PM [facility] WBC UA 0-5 None Seen, 0-5 /HPF 06/21/2023 4:32 PM [facility] Squamous Epithelial Cells UA None Seen None Seen, 0-2, 3-5 /HPF 06/21/2023 4:32 PM [facility] Urine URINE SPECIMEN OBTAINED BY CLEAN CATCH PROCEDURE / Unknown Collection / Unknown 06/21/2023 4:07 PM NEWBORN PHOTOGRAPHER 06/21/2023 4:18 PM NEWBORN PHOTOGRAPHER Narrative [facility] - 06/21/2023 4:32 PM NEWBORN PHOTOGRAPHER Lab Status, Culture Reflex Indicated. Kaiden Sapp MD LAB - URINALYSIS ORD ERABLES [facility] [address] [place] [address], [facility] [phone] * CULTURE URINE (06/21/2023 4:07 PM NEWBORN PHOTOGRAPHER) Only the most recent of2 resultswithin the time period is included. Culture Urine <10,000 CFU/mL urogenital vj GENIA 06/23/2023 4:09 AM CDT [facility] Urine URINE SPECIMEN OBTAINED BY CLEAN CATCH PROCEDURE / Unknown Collection / Unknown 06/21/2023 4:07 PM NEWBORN PHOTOGRAPHER 06/21/2023 4:32 PM NEWBORN PHOTOGRAPHER Kaiden Sapp MD LAB - MICROBIOLOGY O RDERABLES [facility] [address] [place] [address], [facility] [phone] * PTT (06/07/2023 12:06 PM NEWBORN PHOTOGRAPHER) Pathologist [facility] PTT 29.9 23.0 - 38.4 sec 06/07/2023 12:32 PM NEWBORN PHOTOGRAPHER [facility] Blood BLOOD SPECIMEN / Unknown Lab Venipuncture / Unknown 06/07/2023 12:06 PM NEWBORN PHOTOGRAPHER 06/07/2023 12:14 PM NEWBORN PHOTOGRAPHER Narrative [facility] - 06/07/2023 12:32 PM NEWBORN PHOTOGRAPHER Heparin Therapeutic Range for PTT: 69.0 - 110.0 seconds. Kaiden Sapp MD LAB - COAGULATION OR DERABLES [facility] [address] [place] [address] * PT-INR (06/07/2023 12:06 PM NEWBORN PHOTOGRAPHER) PT 13.1 12.1 - 14.8 sec 06/07/2023 12:32 PM NEWBORN PHOTOGRAPHER [facility] INR 1.0 0.9 - 1.1 06/07/2023 12:32 PM NEWBORN PHOTOGRAPHER [facility] Blood BLOOD SPECIMEN / Unknown Lab Venipuncture / Unknown 06/07/2023 12:06 PM NEWBORN PHOTOGRAPHER 06/07/2023 12:14 PM NEWBORN PHOTOGRAPHER Narrative [facility] - 06/07/2023 12:32 PM NEWBORN PHOTOGRAPHER Conventional Warfarin Anticoagulant Therapy: INR Reference Range: 2.0-3.0 Intensive Warfarin Anticoagulant Therapy: INR Reference Range: 2.5-3.5 Kaiden Sapp MD LAB - COAGULATION OR DERABLES Performing Organization Address City/State/[facility] Co de Phone Number [facility] [address] [place] [address] * XR LUMBAR SP FLEX EXT 2 OR 3VW (06/07/2023 10:45 AM NEWBORN PHOTOGRAPHER) Anatomical Region Laterality Modality Spine Radiographic Maggi ging 06/07/2023 11:4 8 AM NEWBORN PHOTOGRAPHER Impressions 06/07/2023 11:51 AM NEWBORN PHOTOGRAPHER IMPRESSION: 1. Degenerative disc disease at all levels. 2. Thoracolumbar scoliosis without rotation. 3. 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 > Interpreting Provider: Sukhi Putnam MD on 06/07/2023 11:51 AM Narrative 06/07/2023 11:51 AM NEWBORN PHOTOGRAPHER PROCEDURE: XR LUMBAR SP FLEX EXT 2 OR 3VW DATE/TIME OF EXAM: 06/07/2023 10:45 AM CLINICAL INFORMATION: None relevant/not provided if blank. Indication: M48.062: Spinal stenosis, lumbar region with neurogenic claudication LUMBAR SPINE, STANDING AP, LATERAL, FLEXION AND EXTENSION. HISTORY: Low back pain. COMPARISON: None. FINDINGS: There are 5 ayi-bge-[id number] lumbar type vertebrae. There is convex levoscoliosis of the thoracolumbar spine centered at L1-L2. There is no associated visible rotation. Lordosis of the lumbar spine is normal. No spondylolisthesis in neutral position or with flexion and extension is identified to indicate abnormal mobility of the lumbar spine. All the vertebral bodies are normal in heights. Mild degenerative disc disease in the imaged lower thoracic spine and in the lumbar spine especially in the upper lumbar spine are present without associated shortening of disc space heights and endplate osteophytosis. Moderate to severe facet osteoarthritis in the lumbar spine is evident at all levels from the L2-3 through L5-S1 with the most severe changes at L5-S1 level. No fracture, spondylolisthesis or suspicious intrinsic bony lesion is identified. The bony central canal and bony neuroforamina appear normal in caliber. The sacroiliac joints appear symmetric without significant osteoarthritic changes. Procedure Note Sukhi Putnam MD - 06/07/2023 PROCEDURE: XR LUMBAR SP FLEX EXT 2 OR 3VW DATE/TIME OF EXAM: 06/07/2023 10:45 AM CLINICAL INFORMATION: None relevant/not provided if blank. Indication: M48.062: Spinal stenosis, lumbar region with neurogenic claudication LUMBAR SPINE, STANDING AP, LATERAL, FLEXION AND EXTENSION. HISTORY: Low back pain. COMPARISON: None. FINDINGS: There are 5 [id number] lumbar type vertebrae. There is convex levoscoliosis of the thoracolumbar spine centered at L1-L2. There is no associated visible rotation. Lordosis of the lumbar spine is normal. No spondylolisthesis in neutral position or with flexion and extension is identified to indicate abnormal mobility of the lumbar spine. All the vertebral bodies are normal in heights. Mild degenerative disc diseasein the imaged lower thoracic spine and in the lumbar spine especially inthe upper lumbar spine are present without associated shortening of discspace heights and endplate osteophytosis. Moderate to severe facetosteoarthritis in the lumbar spine is evident at all levels from the L2-3 through L5-S1 with the most severe changes at L5-S1 level. No fracture, spondylolisthesis or suspicious intrinsic bony lesion is identified. The bony central canal and bony neuroforamina appear normal in caliber.The sacroiliac joints appear symmetric without significant osteoarthritic changes. IMPRESSION: 1. Degenerative disc disease at all levels. 2. Thoracolumbar scoliosis without rotation. 3. 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 > Interpreting Provider: Sukhi Putnam MD on 06/07/2023 11:51 AM Kaiden Sapp MD DIAGNOSTIC IMAGING O RDERABLES * XR CHEST 1VW (06/07/2023 10:45 AM NEWBORN PHOTOGRAPHER) Anatomical Region Laterality Modality Chest Radiographic Maggi ging 06/07/2023 12:5 2 PM NEWBORN PHOTOGRAPHER Narrative 06/07/2023 1:04 PM NEWBORN PHOTOGRAPHER PROCEDURE: XR CHEST 1VW, DATE/TIME OF EXAM: 06/07/2023 10:45 AM, LOCATION [facility] INDICATION: M48.062: Spinal stenosis, lumbar region with neurogenic claudication FINDINGS: The heart size is normal. The aorta is atherosclerotic. The pulmonary vascularity is normal. There is likely a calcified granuloma at the left lung base. The visualized lungs are otherwise clear. There is no pleural effusion or pneumothorax. DIAGNOSIS: No acute cardiopulmonary disease. Edited by Tiffanie Reid on 06/07/2023 12:54 PM > Interpreting Provider: Reji Thompson MD on 06/07/2023 1:04 PM Procedure Note Reji Thompson MD - 06/07/2023 PROCEDURE: XR CHEST 1VW, DATE/TIME OF EXAM: 06/07/2023 10:45 AM, LOCATION [facility] INDICATION: M48.062: Spinal stenosis, lumbar region with neurogenic claudication FINDINGS: The heart size is normal. The aorta is atherosclerotic. The pulmonary vascularity is normal. There is likely a calcified granuloma at the left lung base. Thevisualized lungs are otherwise clear. There is no pleural effusion or pneumothorax. DIAGNOSIS: No acute cardiopulmonary disease. Edited by Tiffanie Reid on 06/07/2023 12:54 PM > Interpreting Provider: Reji Thompson MD on 06/07/2023 1:04 PM Kaiden Sapp MD DIAGNOSTIC IMAGING O RDERABLES * XR CERVICAL SPINE 4 OR 5VW (05/02/2023 2:56 PM NEWBORN PHOTOGRAPHER) Anatomical Region Laterality Modality Spine Radiographic Maggi ging 05/02/2023 3:07 PM NEWBORN PHOTOGRAPHER Impressions 05/02/2023 4:15 PM NEWBORN PHOTOGRAPHER IMPRESSION: Mild to moderate degenerative changes. Report dictated by Nilton Cox DO (transporter radiology). Sher Sheridan MD have personally reviewed and interpreted this examination/study. > Interpreting Provider: Sher Black MD on 05/02/2023 4:15 PM Narrative 05/02/2023 4:15 PM NEWBORN PHOTOGRAPHER PROCEDURE: XR CERVICAL SPINE 4 OR 5VW, DATE/TIME OF EXAM: 05/02/2023 2:56 PM, LOCATION [facility] INDICATION: G95.9: Myelopathy ([facility]) ADDITIONAL CLINICAL INFORMATION: Ordering Provider Reason For Exam: preop planning Technologist Note: Additional: COMPARISON: None. FINDINGS: The vertebral bodies are normally aligned. There is no subluxation on flexion or extension views. No acute fracture or compression deformity is identified. There is mild multilevel degenerative disc disease. There is moderate multilevel facet arthropathy. The predental interval and prevertebral soft tissues are normal. Procedure Note Sher Black MD - 05/02/2023 PROCEDURE: XR CERVICAL SPINE 4 OR 5VW, DATE/TIME OF EXAM: 42:56 PM, LOCATION [facility] INDICATION: G95.9: Myelopathy ([facility]) ADDITIONAL CLINICAL INFORMATION: Ordering Provider Reason For Exam: preop planning Technologist Note: Additional: COMPARISON: None. FINDINGS: The vertebral bodies are normally aligned. There is no subluxation on flexion or extension views. No acute fracture or compression deformityis identified. There is mild multilevel degenerative disc disease. There is moderate multilevel facet arthropathy. The predental interval and prevertebral soft tissues are normal. IMPRESSION: Mild to moderate degenerative changes. Report dictated by Nilton Cox DO (transporter radiology). Sher Sheridan MD have personally reviewed and interpreted this examination/study. > Interpreting Provider: Sher Black MD on 05/02/2023 4:15 PM Kaiden Sapp MD DIAGNOSTIC IMAGING O RDERABLES * CT THORACIC SPINE WO CONTRAST (08/01/2022 1:29 PM CDT) Anatomical Region Laterality Modality Spine Computed Tomogra phy 08/01/2022 2:08 PM CDT Impressions 08/01/2022 2:12 PM CDT IMPRESSION: 1. No evidence of acute fracture in the thoracic spine. 2. Mild to moderate degenerative disc and joint disease in the thoracic spine. No significant central canal or neuroforamina stenosis. 3. Diffuse osteopenia. > Interpreting Provider: Flor Guillory MD on 08/01/2022 2:12 PM Narrative 08/01/2022 2:12 PM CDT EXAMINATION: Computed tomography (CT) of the thoracic spine without contrast HISTORY: M48.062: Spinal stenosis of lumbar region with neurogenic claudication M41.50: Degenerative scoliosis M81.0: Osteoporosis, unspecified osteoporosis type, unspecified pathological fracture presence M54.16: Lumbar radiculopathy, chronic TECHNIQUE: CT of the thoracic spine was performed without contrast according to standard protocol. COMPARISON: No prior study is available for comparison at the time of this dictation. FINDINGS: Mildly dilated thoracic kyphosis. Mild dextrocurvature. The bones are moderately osteopenic. Vertebral bodies are normal in height without evidence of acute fracture. There is up to moderate multilevel degenerative disc disease. Mild vacuum phenomenon in the lower thoracic spine. The central canal is patent. There are varying degrees of up to moderate facet osteoarthritis. No neural foraminal stenosis is seen. No lytic or blastic lesions are identified. There is atherosclerotic calcification of the thoracic aorta and its branch vessels including the coronary arteries. There is a small hiatal hernia. Procedure Note Flor Guillory MD - 08/01/2022 EXAMINATION: Computed tomography (CT) of the thoracic spine without contrast HISTORY: M48.062: Spinal stenosis of lumbar region with neurogenic claudication M41.50: Degenerative scoliosis M81.0: Osteoporosis, unspecified osteoporosis type, unspecified pathological fracture presence M54.16: Lumbar radiculopathy, chronic TECHNIQUE: CT of the thoracic spine was performed without contrast according to standard protocol. COMPARISON: No prior study is available for comparison at the time ofthis dictation. FINDINGS: Mildly dilated thoracic kyphosis. Mild dextrocurvature. The bones are moderately osteopenic. Vertebral bodies are normal in height without evidence of acute fracture. There is up to moderate multileveldegenerative disc disease. Mild vacuum phenomenon in the lower thoracic spine. The central canal is patent. There are varying degrees of up to moderatefacet osteoarthritis. No neural foraminal stenosis is seen. No lytic orblastic lesions are identified. There is atherosclerotic calcification of the thoracic aorta and its branch vessels including the coronary arteries. There is a small hiatal hernia. IMPRESSION: 1. No evidence of acute fracture in the thoracic spine. 2. Mild to moderate degenerative disc and joint disease in the thoracic spine. No significant central canal or neuroforamina stenosis. 3. Diffuse osteopenia. > Interpreting Provider: Flor Guillory MD on 08/01/2022 2:12 PM Ally Pierre MD CT ORDERABLES * CT LUMBAR SPINE WO CONTRAST (08/01/2022 1:28 PM CDT) Anatomical Region Laterality Modality Spine Computed Tomogra phy 08/01/2022 2:00 PM CDT Impressions 08/01/2022 2:08 PM CDT IMPRESSION: 1.Mild levoscoliosis. Diffuse osteopenia. 2.Multilevel degenerative disc and joint disease as detailed level by level above, worst at L3-L4, L4-L5, and L5-S1. 3.Redemonstration of right hydronephrosis. Likely status post left nephrectomy. > Interpreting Provider: Flor Guillory MD on 08/01/2022 2:08 PM Narrative 08/01/2022 2:08 PM CDT EXAMINATION: Computed tomography (CT) of the lumbar spine without contrast HISTORY: M48.062: Spinal stenosis of lumbar region with neurogenic claudication M41.50: Degenerative scoliosis M81.0: Osteoporosis, unspecified osteoporosis type, unspecified pathological fracture presence M54.16: Lumbar radiculopathy, chronic TECHNIQUE: CT of the lumbar spine was performed without contrast according to standard protocol. COMPARISON: 04/18/2022. FINDINGS: Mild levoscoliosis. The bones are moderately osteopenic. Vertebral bodies are normal in height without evidence of acute fracture. There is up to severe multilevel degenerative disc and joint disease as detailed below. There is atherosclerotic calcification of the abdominal aorta and its branch vessels. Mild right hydronephrosis is redemonstrated. Status post left nephrectomy. T12-L1: There is decreased disc space height. There is minimal disc bulge. There is no central canal stenosis. There is mild facet osteoarthritis. There is no significant neural foraminal stenosis. L1-L2: There is mild decreased disc height. There is mild disc bulge, eccentric to the right with mild right paracentral disc protrusion. There is no significant central canal stenosis. There is mild stenosis of the right lateral recess. There is mild to moderate facet osteoarthritis. There is mild right neural foraminal stenosis. L2-L3: There is mild, diffuse disc bulge. There is hypertrophy of the ligamentum flavum. There is mild to moderate central canal stenosis but overall there is mild narrowing of the spinal canal due to hypertrophic facet arthropathy and ligamentum flavum thickening. There is mild to moderate facet osteoarthritis. There is no high-grade neural foraminal stenosis. L3-L4: There is diffuse disc bulge. There is hypertrophy of the ligamentum flavum. There is moderate to severe central canal stenosis. There is advanced facet osteoarthritis. There is mild bilateral neural foraminal stenosis. L4-L5: There is diffuse disc bulge. There is hypertrophy of the ligamentum flavum. There is moderate to severe central canal stenosis. There is bilateral lateral recess stenosis. There is advanced facet osteoarthritis. There is minimal right and mild left neural foraminal stenosis. L5-S1: There is diffuse disc bulge. There is hypertrophy of the ligamentum flavum. There is moderate central canal stenosis. There at least moderate bilateral lateral recess stenosis. There is moderate facet osteoarthritis. There is moderate right and mild left neural foraminal stenosis. Procedure Note Flor Guillory MD - 08/01/2022 EXAMINATION: Computed tomography (CT) of the lumbar spine withoutcontrast HISTORY: M48.062: Spinal stenosis of lumbar region with neurogenic claudication M41.50: Degenerative scoliosis M81.0: Osteoporosis, unspecified osteoporosis type, unspecified pathological fracture presence M54.16: Lumbar radiculopathy, chronic TECHNIQUE: CT of the lumbar spine was performed without contrastaccording to standard protocol. COMPARISON: 04/18/2022. FINDINGS: Mild levoscoliosis. The bones are moderately osteopenic. Vertebralbodies are normal in height without evidence of acute fracture. There is up to severe multilevel degenerative disc and joint disease as detailed below. There is atherosclerotic calcification of the abdominal aorta and its branch vessels. Mild right hydronephrosis is redemonstrated. Status post left nephrectomy. T12-L1: There is decreased disc space height. There is minimal discbulge. There is no central canal stenosis. There is mild facet osteoarthritis. There is no significant neural foraminal stenosis. L1-L2: There is mild decreased disc height. There is mild disc bulge, eccentric to the right with mild right paracentral disc protrusion.There is no significant central canal stenosis. There is mild stenosis of the right lateral recess. There is mild to moderate facet osteoarthritis.There is mild right neural foraminal stenosis. L2-L3: There is mild, diffuse disc bulge. There is hypertrophy of the ligamentum flavum. There is mild to moderate central canal stenosis but overall there is mild narrowing of the spinal canal due to hypertrophic facet arthropathy and ligamentum flavum thickening. There is mild to moderate facet osteoarthritis. There is no high-grade neural foraminal stenosis. L3-L4: There is diffuse disc bulge. There is hypertrophy of theligamentum flavum. There is moderate to severe central canal stenosis. There is advanced facet osteoarthritis. There is mild bilateral neural foraminal stenosis. L4-L5: There is diffuse disc bulge. There is hypertrophy of theligamentum flavum. There is moderate to severe central canal stenosis. There is bilateral lateral recess stenosis. There is advanced facetosteoarthritis. There is minimal right and mild left neural foraminal stenosis. L5-S1: There is diffuse disc bulge. There is hypertrophy of theligamentum flavum. There is moderate central canal stenosis. There at leastmoderate bilateral lateral recess stenosis. There is moderate facetosteoarthritis. There is moderate right and mild left neural foraminal stenosis. IMPRESSION: 1.Mild levoscoliosis. Diffuse osteopenia. 2.Multilevel degenerative disc and joint disease as detailed level bylevel above, worst at L3-L4, L4-L5, and L5-S1. 3.Redemonstration of right hydronephrosis. Likely status post left nephrectomy. > Interpreting Provider: Flor Guillory MD on 08/01/2022 2:08 PM Ally Pierre MD CT ORDERABLES * VITAMIN D 25-HYDROXY (06/22/2022 10:04 AM NEWBORN PHOTOGRAPHER) Vitamin D, 25 Hydroxy 70.0 30.0 - 80.0 ng/mL 06/22/2022 11:40 AM NEWBORN PHOTOGRAPHER [facility] Comment: The recommendations for 25-Hydroxy Vitamin D clinical decision points are as follows: Deficient: <20.0 ng/mL Insufficient: 20.0 - 29.9 ng/mL Sufficient: 30.0 - 100.0 ng/mL Potential Toxicity: >100 ng/mL Reference: The Endocrine Society Clinical Practice Guidelines. 2011 If the 25-Hydroxy Vitamin D results are inconsitent with clinical evidence, it is recommended that follow-up testing using a method such as LC/MS/MS be performed to confirm the result. Blood BLOOD SPECIMEN / Unknown Lab Venipuncture / Unknown 06/22/2022 10:04 AM NEWBORN PHOTOGRAPHER 06/22/2022 10:55 AM NEWBORN PHOTOGRAPHER Ashkan Mott MD LAB - CHEMISTRY AMADO DENG [facility] Organization Address City/State/ZIP Co de Phone Number [facility] [address] [place] [phone], [facility] [phone] * XR SPINE ENTIRE 2 OR 3VW (04/20/2022 11:24 AM NEWBORN PHOTOGRAPHER) Anatomical Region Laterality Modality Spine Radiographic Maggi ging 04/20/2022 11:4 6 AM NEWBORN PHOTOGRAPHER Impressions 04/20/2022 12:02 PM NEWBORN PHOTOGRAPHER IMPRESSION: 1. Mild scoliosis. 2. Possible sclerotic bone lesion in the left proximal humerus (versus adjacent soft tissue calcification). Recommend further evaluation with left humerus radiographs. > Interpreting Provider: Sher Black MD on 04/20/2022 12:02 PM Narrative 04/20/2022 12:02 PM NEWBORN PHOTOGRAPHER PROCEDURE: XR SPINE ENTIRE 2 OR 3VW, DATE/TIME OF EXAM: 04/20/2022 11:24 AM, LOCATION [facility] INDICATION: M48.062: Spinal stenosis of lumbar region with neurogenic claudication ADDITIONAL CLINICAL INFORMATION: Ordering Provider Reason For Exam: Evaluate allignment Technologist Note: Additional: COMPARISON: None. TECHNIQUE: FINDINGS: Dextroscoliosis measuring 14 degrees from T1 to T12. Levoscoliosis measuring 14 degrees from T12 to L4. Coronal balance -3.2 cm, sagittal balance +3.8 cm. Moderate multilevel degenerative changes. A radiopaque focus measuring approximately 1 cm projects over the left proximal humerus on the PA view. This could represent a sclerotic bone lesion or soft tissue calcification adjacent to the humerus. A left lower lobe calcified granuloma is noted. Procedure Note Sher Black MD - 04/20/2022 PROCEDURE: XR SPINE ENTIRE 2 OR 3VW, DATE/TIME OF EXAM: 04/20/2022 11:24 AM, LOCATION [facility] INDICATION: M48.062: Spinal stenosis of lumbar region with neurogenic claudication ADDITIONAL CLINICAL INFORMATION: Ordering Provider Reason For Exam: Evaluate allignment Technologist Note: Additional: COMPARISON: None. TECHNIQUE: FINDINGS: Dextroscoliosis measuring 14 degrees from T1 to T12. Levoscoliosis measuring 14 degrees from T12 to L4. Coronal balance -3.2 cm, sagittal balance +3.8 cm. Moderate multilevel degenerative changes. A radiopaque focus measuring approximately 1 cm projects over the left proximalhumerus on the PA view. This could represent a sclerotic bone lesion or softtissue calcification adjacent to the humerus. A left lower lobe calcified granuloma is noted. IMPRESSION: 1. Mild scoliosis. 2. Possible sclerotic bone lesion in the left proximal humerus (versus adjacent soft tissue calcification). Recommend further evaluation withleft humerus radiographs. > Interpreting Provider: Sher Black MD on 04/20/2022 12:02 PM Ally Pierre MD DIAGNOSTIC IMAGING ORDERABLES * MRI LUMBAR SPINE WO CONTRAST (04/18/2022 12:37 PM NEWBORN PHOTOGRAPHER) Anatomical Region Laterality Modality Spine Magnetic Resonan ce 04/21/2022 11:5 1 AM NEWBORN PHOTOGRAPHER Impressions 04/22/2022 8:56 AM NEWBORN PHOTOGRAPHER IMPRESSION: 1.Multilevel degenerative disc and joint disease as detailed level by level above, worst at L3-L4, L4-L5, and L5-S1 as outlined. 2.Right hydronephrosis. The left kidney is not visualized, which was also mentioned in the prior report from 2016. Please correlate with renal ultrasound or abdominal CT. > Interpreting Provider: Shoaib Mcgregor MD on 04/22/2022 8:56 AM Narrative 04/22/2022 8:56 AM NEWBORN PHOTOGRAPHER PROCEDURE: MRI LUMBAR SPINE WO CONTRAST, DATE/TIME OF EXAM: 04/18/2022 12:37 PM, LOCATION [facility] INDICATION: M48.062: Spinal stenosis of lumbar region with neurogenic claudication ADDITIONAL CLINICAL INFORMATION: Ordering Provider Reason For Exam: Lumbar spine stenosis Technologist Note: None. Additional: None. EXAMINATION: Magnetic resonance imaging (MRI) of the lumbar spine without contrast HISTORY: M48.062: Spinal stenosis of lumbar region with neurogenic claudication TECHNIQUE: MRI of the lumbar spine was performed without contrast according to standard protocol. COMPARISON: No prior study is available for comparison at the time of this dictation. Correlation with x-ray of the lumbar spine from 04/20/2022. Correlation with outside facility MRI of the lumbar spine report from 07/12/2015.. FINDINGS: Counting reference: Lumbosacral junction. For the purposes of this report, L4-5 is considered the level of the iliac crest. Mild dextrocurvature of the lower lumbar spine. Mild levocurvature of the lumbosacral junction. Vertebral bodies are normal in height without evidence of compression fractures. Endplate Modic type I degenerative changes are noted at T12-L1. Mild endplate changes also noted at L1-L2. Marrow signal intensity is otherwise grossly unremarkable. The conus medullaris terminates at the level of L1 and the distal spinal cord signal intensity is normal. Mild engorgement of the cauda equina nerve root sleeves, prominent above the L3-L4 level. The anterior and posterior longitudinal ligaments as well as the posterior ligamentous complex appear intact. There is mild disc height loss at multiple levels. The left kidney is not well visualized. Mild hydroureter and hydrocalycosis of the right kidney. Please correlate with abdominal ultrasound or abdominal CT. At T10-T11: The spinal canal and neural foramina are patent. There is likely a perineural cyst on the right, (series 3, and series 10, image 19). At T11-T12: Minimal disc bulge. The spinal canal and neural foramina are patent. T12-L1: There is decreased disc space height and disc desiccation. There is minimal disc bulge. There is no central canal stenosis. There is mild facet osteoarthritis. There is no significant neural foraminal stenosis. L1-L2: There is mild decreased disc height. There is mild disc bulge, eccentric to the right with mild right paracentral disc protrusion. There is no significant central canal stenosis. There is mild stenosis of the right lateral recess. There is mild to moderate facet osteoarthritis. There is mild right neural foraminal stenosis. L2-L3: There is mild, diffuse disc bulge. There is hypertrophy of the ligamentum flavum. There is no significant central canal stenosis but overall there is mild narrowing of the spinal canal due to hypertrophic facet arthropathy and ligamentum flavum thickening. There is mild to moderate facet osteoarthritis. There is no high-grade neural foraminal stenosis. L3-L4: There is diffuse disc bulge. There is hypertrophy of the ligamentum flavum. There is moderate to severe central canal stenosis. There is advanced facet osteoarthritis. There is mild bilateral neural foraminal stenosis. L4-L5: There is diffuse disc bulge. There is hypertrophy of the ligamentum flavum. There is moderate to severe central canal stenosis. There is bilateral lateral recess stenosis. There is advanced facet osteoarthritis. There is minimal right and mild left neural foraminal stenosis. L5-S1: There is diffuse disc bulge. There is hypertrophy of the ligamentum flavum. There is moderate central canal stenosis. There at least moderate bilateral lateral recess stenosis. There is moderate facet osteoarthritis. There is moderate right and mild left neural foraminal stenosis. Procedure Note Shoaib Mcgregor MD - 04/22/2022 PROCEDURE: MRI LUMBAR SPINE WO CONTRAST, DATE/TIME OF EXAM: 04/18/2022 12:37 PM, LOCATION [facility] INDICATION: M48.062: Spinal stenosis of lumbar region with neurogenic claudication ADDITIONAL CLINICAL INFORMATION: Ordering Provider Reason For Exam: Lumbar spine stenosis Technologist Note: None. Additional: None. EXAMINATION: Magnetic resonance imaging (MRI) of the lumbar spinewithout contrast HISTORY: M48.062: Spinal stenosis of lumbar region with neurogenic claudication TECHNIQUE: MRI of the lumbar spine was performed without contrastaccording to standard protocol. COMPARISON: No prior study is available for comparison at the time ofthis dictation. Correlation with x-ray of the lumbar spine from 04/20/2022. Correlation with outside facility MRI of the lumbar spine report from 07/12/2015.. FINDINGS: Counting reference: Lumbosacral junction. For the purposes of thisreport, L4-5 is considered the level of the iliac crest. Mild dextrocurvature of the lower lumbar spine. Mild levocurvature ofthe lumbosacral junction. Vertebral bodies are normal in height without evidence of compression fractures. Endplate Modic type I degenerative changes are noted at T12-L1. Mild endplate changes also noted at L1-L2. Marrow signal intensity is otherwise grossly unremarkable. The conus medullaris terminates at the level of L1 and the distal spinal cordsignal intensity is normal. Mild engorgement of the cauda equina nerve root sleeves, prominent above the L3-L4 level. The anterior and posterior longitudinal ligaments as well as the posterior ligamentous complexappear intact. There is mild disc height loss at multiple levels. The leftkidney is not well visualized. Mild hydroureter and hydrocalycosis of the right kidney. Please correlate with abdominal ultrasound or abdominal CT. At T10-T11: The spinal canal and neural foramina are patent. There is likely a perineural cyst on the right, (series 3, and series 10, image19). At T11-T12: Minimal disc bulge. The spinal canal and neural foramina are patent. T12-L1: There is decreased disc space height and disc desiccation. Thereis minimal disc bulge. There is no central canal stenosis. There is mildfacet osteoarthritis. There is no significant neural foraminal stenosis. L1-L2: There is mild decreased disc height. There is mild disc bulge, eccentric to the right with mild right paracentral disc protrusion.There is no significant central canal stenosis. There is mild stenosis of the right lateral recess. There is mild to moderate facet osteoarthritis.There is mild right neural foraminal stenosis. L2-L3: There is mild, diffuse disc bulge. There is hypertrophy of the ligamentum flavum. There is no significant central canal stenosis but overall there is mild narrowing of the spinal canal due to hypertrophic facet arthropathy and ligamentum flavum thickening. There is mild to moderate facet osteoarthritis. There is no high-grade neural foraminal stenosis. L3-L4: There is diffuse disc bulge. There is hypertrophy of theligamentum flavum. There is moderate to severe central canal stenosis. There is advanced facet osteoarthritis. There is mild bilateral neural foraminal stenosis. L4-L5: There is diffuse disc bulge. There is hypertrophy of theligamentum flavum. There is moderate to severe central canal stenosis. There is bilateral lateral recess stenosis. There is advanced facetosteoarthritis. There is minimal right and mild left neural foraminal stenosis. L5-S1: There is diffuse disc bulge. There is hypertrophy of theligamentum flavum. There is moderate central canal stenosis. There at leastmoderate bilateral lateral recess stenosis. There is moderate facetosteoarthritis. There is moderate right and mild left neural foraminal stenosis. IMPRESSION: 1.Multilevel degenerative disc and joint disease as detailed level bylevel above, worst at L3-L4, L4-L5, and L5-S1 as outlined. 2.Right hydronephrosis. The left kidney is not visualized, which wasalso mentioned in the prior report from 2016. Please correlate with renal ultrasound or abdominal CT. > Interpreting Provider: Shoaib Mcgregor MD on 04/22/2022 8:56 AM Ally Pierre MD MR ORDERABLES * BONE DENSITY AXIAL SKELETON(1OR MORE SITES)[id number] (04/18/2022 10:35 AM NEWBORN PHOTOGRAPHER) Anatomical Region Laterality Modality Other 04/18/2022 3:28 PM NEWBORN PHOTOGRAPHER Narrative 04/18/2022 3:42 PM NEWBORN PHOTOGRAPHER PROCEDURE: DEXA BONE DENSITY AXIAL SKELETON, DATE/TIME OF EXAM: 04/18/2022 10:35 AM, LOCATION [facility] INDICATION: M48.062: Spinal stenosis of lumbar region with neurogenic claudication COMPARISON: No prior DEXA study. LEFT FEMORAL NECK: Bone mineral density (g/cm2): 0.936 Current T-score: 0.8 LUMBAR SPINE (L1-L4): Bone mineral density (g/cm2): 1.312 Current T-score: 2.4 BONE DENSITY ASSESSMENT: WHO Category: Normal FRAX CALCULATION FRAX not reported because: All T-scores for spine total, hip total, femoral neck at or above -1. Please see the PACS images for additional details. World Health Organization definitions of standard deviations relative to the mean T-score: Normal bone density = -1.0 and above Osteopenia = between -1.0 and -2.5 Osteoporosis = -2.5 and below > Dictated by August Kowk MD (Solutions Architect Consultant) 04/18/2022 3:29 PM Robert Sheridan DO have personally reviewed and interpreted this examination/study. > Interpreting Provider: Robert Paulino DO on 04/18/2022 3:42 PM Procedure Note Robert Paulino DO - 04/18/2022 PROCEDURE: DEXA BONE DENSITY AXIAL SKELETON, DATE/TIME OF EXAM:04/18/2022 10:35 AM, LOCATION [facility] INDICATION: M48.062: Spinal stenosis of lumbar region with neurogenic claudication COMPARISON: No prior DEXA study. LEFT FEMORAL NECK: Bone mineral density (g/cm2): 0.936 Current T-score: 0.8 LUMBAR SPINE (L1-L4): Bone mineral density (g/cm2): 1.312 Current T-score: 2.4 BONE DENSITY ASSESSMENT: WHO Category: Normal FRAX CALCULATION FRAX not reported because: All T-scores for spine total, hip total,femoral neck at or above -1. Please see the PACS images for additional details. World Health Organization definitions of standard deviations relative to the mean T-score: Normal bone density = -1.0 and above Osteopenia = between -1.0 and -2.5 Osteoporosis = -2.5 and below > Dictated by August Kwok MD (Solutions Architect Consultant) 04/18/2022 3:29 PM Robert Sheridan DO have personally reviewed and interpreted this examination/study. > Interpreting Provider: Robert Paulino DO on 04/18/2022 3:42 PM Ally Pierre MD DEXA ORDERABLES Care Teams Chair Caner Relationship Specialty Start Date End Date Kavon Juarez MD [address] [place] [phone] PCP - General 07/20/22 Ashkan Mott MD [address] [place] [address] Endocrinology 06/22/22
--- OUTSIDE RECORDS SUMMARY | 2024-06-25 14:04 | XMS_ITS | Clinical Summary ---
Author Organization [facility] Address [address] [place] [address] Care Team Providers Care Neon Pumper Name Role Phone Ashkan Mott MD Unavailable [phone] Kavon Juarez MD Primary Care Provider [phone] Source Comments [facility],non-owned Affiliates and Associated Physician Practices is amultiple site organization consisting of ambulatory clinics and hospital sitesin [place], [place], [place] and [place]. This disclosure is being madepursuant to the Care Everywhere program and may not contain all information available regarding this patient. Last updated 18.[facility] [employer] Allergies Active Allergy Reactions Criticality Noted Date Comments Codeine Vomiting 04/30/2024 Nausea and vomiting Latex Rash Medium 04/30/2024 Reddness with condoms Medications * Be aware that medications may not be up to date on this document. Alwaysverify current medications with the patient. Medication Sig Dispensed Refills Start Date End Date Status lisinopril-hydroCHLO ROthiazide (Prinzide; Zestoretic) 20-12.5 MG tablet Take 1 (one) tablet by mouth once daily 2 Active montelukast (Singulair) 10 MG tablet Take 1 (one) tablet by mouth once daily 2 Active famotidine (Pepcid) 20 MG tablet Take 1 (one) tablet by mouth 2 times daily 2 Active albuterol HFA (Proventil; Ventolin; Proair) 108 (90 Base) MCG/ACT inhaler Inhale 1 (one) puff to 2 (two) puffs by mouth every 6 hours as needed for Shortness of Breath, Wheezing or Cough 2 Active oxyBUTYnin (Ditropan) 5 MG tablet Take 1 (one) tablet by mouth once daily Active fluticasone-salmeter ol (Advair/Wixela) 100-50 MCG/ACT inhaler Inhale 1 (one) puff by mouth 2 times daily 4 Active vitamin D3 (Cholecalciferol) 25 MCG (1000 UNITS) tablet Take 1 (one) tablet by mouth once daily Active MULTIPLE VITAMIN PO Take 1 tablet by mouth once daily Active Biotin w/ Vitamins C & E (HAIR/SKIN/NAILS PO) Take 1 tablet by mouth once daily Active docusate sodium (Colace) 100 MG capsuleIndications:C onstipation Take 1 (one) capsule by mouth once daily as needed for Constipation Narcotics can cause constipation. Please take while taking narcotic pain medications to avoid constipation. Do not take if having loose stools. Reasons: Constipation 5 Active polyethylene glycol 3350 (MiraLax) 17 g packetIndications:Co nstipation Take 17 (seventeen) g by mouth once daily as needed for Constipation Narcotics can cause constipation. Please take while taking narcotic pain medications to avoid constipation. Do not take if having loose stools. Reasons: Constipation 5 Active acetaminophen (Tylenol) 325 MG tablet Take 2 (two) tablets by mouth every 4 hours as needed for Fever, Pain or Headache (For temperature GREATER than 101 ) Maximum allowable Acetaminophen amount = 4 Grams (4000 mg) / 24 hours. 5 Active calcium carbonate (Tums) 500 MG chew tablet Take 1 (one) tablet by mouth every 2 hours as needed for Heartburn 5 Active lidocaine (Lidoderm) 5 % patch Apply 1 (one) patch to skin every 24 hours Apply patch to most painful area and remove after 12 hours. May reapply a new patch 12 hours later. 14 patch 2 5 Active bisacodyl (Dulcolax) 10 MG suppository Insert 1 (one) suppository into the rectum once daily as needed for Constipation 5 Active prochlorperazine (Compazine) 10 MG tabletIndications:Na usea and Vomiting Take 1 (one) tablet by mouth every 8 hours as needed for Nausea/Vomiting Reasons: Nausea and Vomiting 25 tablet 1 5 Active oxyCODONE, immediate release, (Roxicodone) 5 MG tabletIndications:Di verticulitis of colon Take 1 (one) tablet by mouth every 4 hours as needed for Pain 12 tablet 5 Active amoxicillin-clavulan ate (Augmentin) 875-125 MG tabletIndications:Di verticulitis of the Gastrointestinal Tract Take 1 (one) tablet by mouth every 8 hours for 5 days Reasons: Diverticulitis of the Gastrointestinal Tract 15 tablet 5 05/30/19 25 Active Problems Problem Noted Date Diagnosed Date Diverticulitis of colon 05/24/2024 05/24/19 Lumbar stenosis with neurogenic claudication Senile osteoporosis 07/30/2022 04/30/2023 Spinal stenosis of lumbar re gion without neurogenic claudication 10/19/2020 04/30/2023 SUNDEEP (obstructive sleep apnea) 06/23/2019 Non morbid obesity 06/23/2019 04/30/2023 Gastroesophageal reflux disease without esophagi tis 06/23/2019 04/30/2023 Benign essential HTN 06/23/2019 04/30/2023 Exomphalos 06/12/2016 04/30/2023 Overview (04/30/2023): Umbilical hernia Encounters Date Type Department Care Team Description 06/15/2024 9:00 AM PORT SURVEYOR - 06/15/2024 11:59 PM PORT SURVEYOR Hospital Encounter [facility] [address] [place] [address] Shahzad Vaughn MD Rudd, Jason, OT Hand/Upper Extremity Surgery Discharge Disposition: Home or Self Care 06/12/2024 12:58 PM PORT SURVEYOR - 06/12/2024 11:59 PM [facility] Hospital Encounter [facility] [address] [place] [address] Shahzad Vaughn MD Rudd, Jason, OT Discharge Disposition: Home or Self Care 06/05/2024 12:34 PM PORT SURVEYOR - 06/05/2024 11:59 PM PORT SURVEYOR Hospital Encounter [facility] OT [address] [place] [address] Shahzad Vaughn MD Rudd, Jason, OT Discharge Disposition: Home or Self Care 05/26/2024 Telephone Transitional Care at [address] [phone] Rosaura Mayo, milling general superintendent 05/26/2024 Telephone Transitional Care at [address] [address] Rosaura Mayo, milling general superintendent 05/26/2024 Telephone Transitional Care at [address] [address] Rosaura Mayo, milling general superintendent 05/24/2024 2:42 AM PORT SURVEYOR - 05/25/2024 4:21 PM PORT SURVEYOR Hospital Encounter [facility] SHORT STAY UNIT [address] [place] [address] Damian Sosa MD Freedle, Ryan L, MD Vaidyan, Philip B, MD Hospitalist Discharge Disposition: Home or Self Care 05/24/2024 Travel 05/23/2024 Travel 05/21/2024 9:30 AM PORT SURVEYOR Office Visit [facility] - Orthopedics [address] [place] [phone] Shahzad Vaughn MD Hand numbness (Primary Dx) 05/21/2024 Travel 05/16/2024 Refill [facility] [address] [place] [phone] Kaiden Sapp MD Refill Request 05/05/2024 7:28 AM PORT SURVEYOR Anesthesia Event [facility] [address] [place] [phone] Luther Min MD 05/05/2024 7:15 AM PORT SURVEYOR - 05/05/2024 8:40 AM PORT SURVEYOR Surgery [facility] [address] [place] [phone] Shahzad Vaughn MD CARPAL TUNNEL RELEASE, ENDOSCOPIC CUBITAL TUNNEL RELEASE, PRONATOR RELEASE--LEFT AND CARPAL TUNNEL WRIST INJECTION--RIGHT 05/05/2024 5:37 AM PORT SURVEYOR - 05/05/2024 10:43 AM PORT SURVEYOR Hospital Encounter [facility] [address] [place] [address] Shahzad Vaughn MD Surgery General Discharge Disposition: Home or Self Care 05/05/2024 Orders Only [facility] [address] [place] [phone] Shahzad Vaughn MD Right carpal tunnel syndrome 05/05/2024 Travel 05/04/2024 Travel 04/30/2024 Travel 04/17/2024 Refill [facility] [address] [place] [phone] Kaiden Sapp MD Refill Request from Last 3 Months Immunizations Name Administration Dates Next Due INFLUENZA VACCINE, ADJUVANTE D, QUADR. (FLUAD QUADRIVALENT; 65Y+) (AIIV4) 05/25/2024(Deferred: Patient Refused) Social History Tobacco Use Types Packs/Day Years [...] Recorded Patient Health Questionnaire-2 Score 0 02/20/2024 [facility] [place] of Occupat ional Health - Occupational Stress [...] place to sleep or slept in a usp (including now)? No 07/02/2023 Housing Stability Vital Sign Answer Mode e Recorded In the last 12 months, was t here a time when you were not able to pay the mortgage or rent on time? No 05/25/2024 In the past 12 months, how m any times have you moved where you were living? 0 05/25/2024 At any time in the past 12 m [facility], were you homeless or living in a usp (including now)? No 05/25/2024 Sex and Gender Information Value Date Recorded Sex Assigned at Not on file Gender Identity Not on file Sexual Orientation Not on file Last Filed Vital Signs Vital Sign Reading Time Taken Comments Blood Pressure 154/95 05/25/2024 7:39 AM PORT SURVEYOR Pulse 62 05/25/2024 7:39 AM PORT SURVEYOR Temperature 36.8 C (98.2 F) 05/25/2024 7:39 AM PORT SURVEYOR Respiratory Rate 16 05/25/2024 7:39 AM PORT SURVEYOR Oxygen Saturation 95% 05/25/2024 7:39 AM PORT SURVEYOR Inhaled Oxygen Concentration - - Weight 68 kg (150 lb) 05/24/2024 11:43 AM PORT SURVEYOR Height 165.1 cm (5' 5 ) 05/24/2024 11:43 AM PORT SURVEYOR Body Mass Index 24.96 05/24/2024 11:43 AM PORT SURVEYOR Plan of Treatment Upcoming Encounters Date Type Department Care Team (Late st Contact Info) Description 07/09/2024 9:30 AM CDT Office Visit [facility] [address] [place] [phone] Shahzad Vaughn MD [address] [place] [address] OF ORTHOPEDIC SURGERY [place], [place] [phone] 07/16/2024 2:00 PM CDT Office Visit [facility] [address] [place] [phone] Kaiden Sapp MD [address] [place] [address] OF ORTHOPEDIC SURGERY [place], [place] [phone] Health Maintenance Due Date Last Done Comments COLOGUARD (AGES 45-75) - COLON CA SCREENING 1952 COLON MONITORING 1952 COLONOSCOPY - COLON CA SCREENING 1952 CT COLONOGRAPHY - COLON CA SCREENING 1952 Colorectal Cancer Screening 1952 FIT - COLON CA SCREENING 1952 FLEX SIG - COLON CA SCREENING 1952 LIPID TESTING 1952 HEPATITIS C SCREENING 06/24/1970 DTAP/TDAP/TD VACCINES (1 - Tdap) 06/29/1971 PNEUMOCOCCAL VACCINE 50+ (1 of 1 - PCV) 2002 ZOSTER VACCINE (1 of 2) 2002 MAMMOGRAM 04/01/2019 04/01/2017 COVID-19 VACCINE (4 - season) 2023 04/27/2021, 07/21/2020, 06/23/2020 INFLUENZA VACCINE (#1) 2023 , 02/27/2021, 02/22/2021, Additional history exists DEPRESSION SCREENING 04/15/2024 05/02/2023, 06/23/19 23 MEDICARE AWV CALENDAR YEAR 2024 Respiratory Syncytial Virus (RSV) Vaccine Pt: or over 60 yrs (1 - 1-dose 75+ series) 06/29/2027 BONE DENSITY TESTING Completed 04/18/2022 HEPATITIS B VACCINE Aged Out No longe r eligible based on patient's age to complete this topic HIB VACCINE Aged Out No longer eligi ble based on patient's age to complete this topic HPV VACCINE Aged Out No longer eligi ble based on patient's age to complete this topic MENINGOCOCCAL (Group B) VACCINE SHARED DECISION-MAKING Aged Out No longer eligible based on patient's age to complete this topic MENINGOCOCCAL GROUPS A/C/Y/W VACCINE Aged Out No longer eligible based on patient's age to complete this topic Procedures Procedure Name Priority Date/Time Associated Diagnosis Comments CARDIAC EKG ORDER 05/25/2024 1:3 3 PM PORT SURVEYOR PHOSPHORUS BLOOD Routine 05/25/2024 2:18 AM PORT SURVEYOR Diverticulitis of colon MAGNESIUM BLOOD Routine 05/25/2024 2:18 AM PORT SURVEYOR Diverticulitis of colon CBC W/O DIFFERENTIAL Routine 05/25/2024 2:18 AM PORT SURVEYOR Diverticulitis of colon BASIC METABOLIC PANEL (CALCIUM TOTAL) Routine 05/25/2024 2:18 AM PORT SURVEYOR Diverticulitis of colon URINE MICROSCOPIC ONLY REFLEX TO CULTURE STAT 05/24/2024 4:33 AM PORT SURVEYOR URINALYSIS REFLEX MICROSCOPIC REFLEX CULTURE STAT 05/24/2024 4:[address] ABDOMEN PELVIS W CONTRAST STAT 05/24/2024 3:34 AM PORT SURVEYOR Nausea and vomiting, unspecified vomiting type TROPONIN-I HIGH SENSITIVE REFLEX 1HOUR Timed 05/23/2024 11:53 PM PORT SURVEYOR TROPONIN-I HIGH SENSITIVE BASELINE + 1HR STAT 05/23/2024 11:34 PM PORT SURVEYOR LIPASE BLOOD STAT 05/23/2024 11:34 PM PORT SURVEYOR LACTIC ACID BLOOD REFLEX TO REPEAT STAT 05/23/2024 11:34 PM PORT SURVEYOR COMPREHENSIVE METABOLIC PANEL STAT 05/23/2024 11:34 PM PORT SURVEYOR CBC W AUTO DIFFERENTIAL STAT 05/23/2024 11:34 PM PORT SURVEYOR EKG 12-LEAD Routine 05/23/2024 10:48 PM PORT SURVEYOR Nausea and vomiting, unspecified vomiting type CARDIAC RHYTHM STRIP ORDER 05/07/2024 7:11 PM PORT SURVEYOR LARYNGEAL MASK AIRWAY Routine 05/05/2024 7:43 AM PORT SURVEYOR UT WRIST ARTHROSCOP,RELEASE XVERS LIG 05/05/2024 7:19 AM PORT SURVEYOR Diagnosis unknown Special Needs NEEDS TOURNIQUET, HAND TABLE DEXA BONE DENSITY AXIAL SKELETON Routine 04/18/2022 10:35 AM PORT SURVEYOR Spinal stenosis of lumbar region with neurogenic claudication from Last 3 Months or Most Recently Relevant to Health Maintenance Results * CARDIAC EKG ORDER (05/25/2024 1:33 PM PORT SURVEYOR) Narrative 05/25/2024 1:33 PM PORT SURVEYOR Ordered by an unspecified provider. Scanned Document CARDIAC SERVICES ORD ERABLES * CBC W/O DIFFERENTIAL (05/25/2024 2:18 AM PORT SURVEYOR) WBC 4.2 4.0 - 10.7 x10E9/L 05/25/2024 2:36 AM PORT SURVEYOR [facility] RBC Count 4.05 3.90 - 5.20 x10E12/L 05/25/2024 2:36 AM PORT SURVEYOR [facility] Hemoglobin 12.6 11.9 - 15.8 g/dL 05/25/2024 2:36 AM PORT SURVEYOR [facility] Hematocrit 38.1 34.8 - 46.1 % 05/25/2024 2:36 AM [facility] MCV 94.1 80.0 - 98.0 fL 05/25/2024 2:36 AM [facility] MCH 31.1 26.7 - 33.6 pg 05/25/2024 2:36 AM [facility] MCHC 33.1 31.7 - 36.3 g/dL 05/25/2024 2:36 AM [facility] RDW-CV 12.8 11.3 - 14.8 % 05/25/2024 2:36 AM [facility] Platelet Count 175 150 - 420 x10E9/L 05/25/2024 2:36 AM [facility] MPV 11.2 7.8 - 11.4 fL 05/25/2024 2:36 AM [facility] Blood BLOOD SPECIMEN / Unknown Lab Venipuncture / Unknown 05/25/2024 2:18 AM PORT SURVEYOR 05/25/2024 2:27 AM [facility] Quinn Riddle MD LAB - HEMATOLOGY ORD ERABLES [facility] [address] [place] [address], [facility] [phone] * (ABNORMAL) BASIC METABOLIC PANEL (CALCIUM TOTAL) (05/25/2024 2:18 AM [facility]) BUN 11 7 - 26 mg/dL 05/25/2024 2:54 AM [facility] Creatinine 0.73 0.56 - 0.96 mg/dL 05/25/2024 2:54 AM [facility] Sodium 139 136 - 145 mmol/L 05/25/2024 2:54 AM [facility] Potassium 3.9 3.5 - 4.5 mmol/L 05/25/2024 2:54 AM [facility] Chloride 106 98 - 107 mmol/L 05/25/2024 2:54 AM [facility] CO2 25 22 - 29 mmol/L 05/25/2024 2:54 AM [facility] Glucose 110(H) 70 - 99 mg/dL 05/25/2024 2:54 AM [facility] Calcium 8.8 8.4 - 10.2 mg/dL 05/25/2024 2:54 AM [facility] Anion Gap 8 6 - 16 05/25/2024 2:54 AM [facility] BUN/Creatinine Ratio 15 7 - 23 05/25/2024 2:54 AM [facility] Osmolality Calculated 288 275 - 295 mOsm/kg 05/25/2024 2:54 AM [facility] eGFR by CKD-EPI 88(L) >=90 mL/min/1.7 3 m2 05/25/2024 2:54 AM [facility] Blood BLOOD SPECIMEN / Unknown Lab Venipuncture / Unknown 05/25/2024 2:18 AM PORT SURVEYOR 05/25/2024 2:28 AM PORT SURVEYOR Quinn Riddle MD LAB - CHEMISTRY ORDE ISH Performing Organization Address City/[facility]/ZIP Co de Phone Number [address] [address], [facility] [phone] * PHOSPHORUS BLOOD (05/25/2024 2:18 AM PORT SURVEYOR) Phosphorus 3.2 2.9 - 5.1 mg/dL 05/25/2024 8:02 AM [facility] Blood BLOOD SPECIMEN / Unknown Lab Venipuncture / Unknown 05/25/2024 2:18 AM PORT SURVEYOR 05/25/2024 2:28 AM PORT SURVEYOR Vikram Haddad APRN-CEMENT AND CONCR[employer]E PLANT WORKER LAB - CHEMISTRY ORDERABLES [address] [address], [facility] [phone] * MAGNESIUM BLOOD (05/25/2024 2:18 AM PORT SURVEYOR) Magnesium 1.6 1.6 - 2.6 mg/dL 05/25/2024 8:02 AM [facility] Blood BLOOD SPECIMEN / Unknown Lab Venipuncture / Unknown 05/25/2024 2:18 AM PORT SURVEYOR 05/25/2024 2:28 AM PORT SURVEYOR Vikram Haddad [employer]ER[employer]EMENT [employer] CONCRETE [employer]ANT WORKER LAB - CHEMISTRY ORDERABLES Performing Organization Address [facility]/ZIP Co de Phone Number [address] [address], [facility] [phone] * (ABNORMAL) URINE MICROSCOPIC ONLY REFLEX TO CULTURE (05/24/2024 4:33 AM PORT SURVEYOR) Reflex Status Culture not indicated 05/24/2024 5:28 AM [facility] WBC UA 6-10(A) None Seen, 0-5 /HPF 05/24/2024 5:28 AM [facility] Squamous Epithelial Cells UA 0-2 None Seen, 0-2, 3-5 /HPF 05/24/2024 5:28 AM [facility] Mucus UA 3+ /LPF 05/24/2024 5:28 AM [facility] Urine URINE SPECIMEN OBTAINED BY CLEAN CATCH PROCEDURE / Unknown Collection / Unknown 05/24/2024 4:33 AM PORT SURVEYOR 05/24/2024 4:44 AM PORT SURVEYOR Narrative [facility] - 05/24/2024 5:28 AM PORT SURVEYOR Damina Sosa MD LAB - URINALYSIS ORD ERABLES Performing Organization Address [facility]/ZIP Co de Phone Number [address] [address], [facility] [phone] * (ABNORMAL) URINALYSIS REFLEX MICROSCOPIC REFLEX CULTURE (05/24/2024 4:33 AM PORT SURVEYOR) Color UA Yellow Straw, Yellow 05/24/2024 4:59 AM [facility] Clarity UA Clear Clear 05/24/2024 4:59 AM [facility] Specific [place] UA 1.038(H) 1.005 - 1.030 05/24/2024 4:59 AM [facility] pH UA 5.0 5.0 - 8.0 pH 05/24/2024 4:59 AM [facility] Protein UA 1+(A) Negative 05/24/2024 4:59 AM [facility] Glucose UA Negative Negative 05/24/2024 4:59 AM [facility] Ketone UA 1+(A) Negative 05/24/2024 4:59 AM [facility] Bilirubin UA Negative Negative 05/24/2024 4:59 AM [facility] Blood UA Negative Negative 05/24/2024 4:59 AM [facility] Nitrite UA Negative Negative 05/24/2024 4:59 AM [facility] Leukocyte Esterase Negative Negative 05/24/2024 4:59 AM [facility] Urobilinogen UA Negative Negative mg/dL 05/24/2024 4:59 AM [facility] Urine URINE SPECIMEN OBTAINED BY CLEAN CATCH PROCEDURE / Unknown Collection / Unknown 05/24/2024 4:33 AM PORT SURVEYOR 05/24/2024 4:44 AM PORT SURVEYOR Narrative [facility] - 05/24/2024 4:59 AM PORT SURVEYOR Damian Sosa MD LAB - URINALYSIS ORD ERABLES Performing Organization Address City/State/[facility] Co de Phone Number [address] [address], [facility] [phone] * CT Abdomen Pelvis W Contrast (05/24/2024 3:34 AM PORT SURVEYOR) Anatomical Region Laterality Modality Abdomen, Pelvis Computed Tomogra phy 05/24/2024 4:12 AM PORT SURVEYOR Impressions 05/24/2024 10:22 AM PORT SURVEYOR IMPRESSION: 1.Findings suggestive of acute, uncomplicated diverticulitis with small volume of free fluid adjacent to the sigmoid colon and a small focus of extraluminal air. Mild dilation of adjacent loops small bowel likely reflecting reactive ileus. 2.Moderate sized hiatal hernia. 3.Solitary right kidney. > Dictated by Malachi Johnson MD (resident services manager). I, Saira Fleming MD have personally reviewed and interpreted this examination/study. > Interpreting Provider: Saira Fleming MD on 05/24/2024 10:22 AM Narrative 05/24/2024 10:22 AM PORT SURVEYOR PROCEDURE: CT ABDOMEN PELVIS W CONTRAST, DATE/TIME OF EXAM: 05/24/2024 3:34 AM, LOCATION [facility] INDICATION: R11.2: Nausea and vomiting, unspecified vomiting [...] CONTRAST, DATE/TIME OF EXAM: :34 AM, LOCATION [facility] INDICATION: R11.2: Nausea and vomiting, unspecified vomiting [...] kidney. > Dictated by Malachi Johnson MD (resident services manager). I, Saira Fleming MD have personally reviewed and interpreted this examination/study. > Interpreting Provider: Saira Fleming MD on 05/24/2024 10:22 AM Damian Sosa MD CT ORDERABLES * TROPONIN-I HIGH SENSITIVE REFLEX 1HOUR (05/23/2024 11:53 PM PORT SURVEYOR) Troponin I High Sensitive 4 <=14 ng/L 05/24/2024 12:54 AM PORT SURVEYOR [facility] Delta Troponin I HS 05/24/2024 12:54 AM PORT SURVEYOR [facility] Comment:Delta value intentio kashif not calculated. Baseline to 1 hour specimen collection interval exceeded. Blood BLOOD SPECIMEN / Unknown Venipuncture / Unknown 05/23/2024 11:53 PM PORT SURVEYOR 05/24/2024 12:15 AM PORT SURVEYOR Nereida Bae MD LAB - CHEMISTRY AMADO DENG Performing Organization Address [facility]/ZIP Co de Phone Number [address] [address], [place] [phone] * LACTIC ACID BLOOD REFLEX TO REPEAT (05/23/2024 11:34 PM PORT SURVEYOR) Lactic Acid-Stat 1.5 <=2.0 mmol/L 05/24/2024 12:07 AM PORT SURVEYOR [facility] Blood BLOOD SPECIMEN / Unknown Venipuncture / Unknown 05/23/2024 11:34 PM PORT SURVEYOR 05/23/2024 11:38 PM PORT SURVEYOR Nereida Bae MD LAB - CHEMISTRY AM[place]O DENG Performing Organization Address [facility] Co de Phone Number [address] [address], [place] [phone] * TROPONIN-I HIGH SENSITIVE BASELINE + 1HR (05/23/2024 11:34 PM PORT SURVEYOR) Pathologist [facility] [place] Troponin I High Sensitive 4 <=14 ng/L 05/24/2024 12:16 AM [facility] Blood BLOOD SPECIMEN / Unknown Venipuncture / Unknown 05/23/2024 11:34 PM PORT SURVEYOR 05/23/2024 11:39 PM PORT SURVEYOR Nereida Bae MD LAB - CHEMISTRY AMADO DENG Performing Organization Address [facility] Co de Phone Number [address] [address], [place] [phone] * (ABNORMAL) CBC W AUTO DIFFERENTIAL (05/23/2024 11:34 PM PORT SURVEYOR) WBC 13.5(H) 4.0 - 10.7 x10E9/L 05/23/2024 11:45 PM [facility] RBC Count 5.20 3.90 - 5.20 x10E12/L 05/23/2024 11:45 PM [facility] Hemoglobin 16.1(H) 11.9 - 15.8 g/dL 05/23/2024 11:45 PM [facility] Hematocrit 47.5(H) 34.8 - 46.1 % 05/23/2024 11:45 PM [facility] MCV 91.3 80.0 - 98.0 fL 05/23/2024 11:45 PM [facility] MCH 31.0 26.7 - 33.6 pg 05/23/2024 11:45 PM [facility] MCHC 33.9 31.7 - 36.3 g/dL 05/23/2024 11:45 PM [facility] RDW-CV 12.6 11.3 - 14.8 % 05/23/2024 11:45 PM [facility] Platelet Count 236 150 - 420 x10E9/L 05/23/2024 11:45 PM [facility] MPV 11.3 7.8 - 11.4 fL 05/23/2024 11:45 PM [facility] Neutrophil % 94.2(H) 41.0 - 74.0 % 05/23/2024 11:45 PM [facility] Lymphocyte % 2.2(L) 17.0 - 47.0 % 05/23/2024 11:45 PM [facility] Monocyte % 3.2 3.0 - 11.0 % 05/23/2024 11:45 PM [facility] Eosinophil % 0.0 0.0 - 7.0 % 05/23/2024 11:45 PM [facility] Basophil % 0.1 0.0 - 1.6 % 05/23/2024 11:45 PM [facility] Immature Granulocytes % 0.3 0.0 - 1.0 % 05/23/2024 11:45 PM [facility] Neutrophil Absolute 12.68(H) 1.60 - 7.50 x10E9/L 05/23/2024 11:45 PM [facility] Lymphocyte Absolute 0.30(L) 1.00 - 4.40 x10E9/L 05/23/2024 11:45 PM [facility] Monocyte Absolute 0.43 0.15 - 1.00 x10E9/L 05/23/2024 11:45 PM [facility] Eosinophil Absolute 0.00 0.00 - 0.60 x10E9/L 05/23/2024 11:45 PM [facility] Basophil Absolute 0.02 0.00 - 0.13 x10E9/L 05/23/2024 11:45 PM [facility] Blood BLOOD SPECIMEN / Unknown Venipuncture / Unknown 05/23/2024 11:34 PM PORT SURVEYOR 05/23/2024 11:39 PM PORT SURVEYOR Nereida Bae MD LAB - HEMATOLOGY ORD ERABLES [facility] [address] [place] [address], [facility] [phone] * (ABNORMAL) COMPREHENSIVE METABOLIC PANEL (05/23/2024 11:34 PM [facility]) BUN 20 7 - 26 mg/dL 05/24/2024 12:11 AM [facility] Creatinine 0.75 0.56 - 0.96 mg/dL 05/24/2024 12:11 AM [facility] Sodium 140 136 - 145 mmol/L 05/24/2024 12:11 AM [facility] Potassium 4.1 3.5 - 4.5 mmol/L 05/24/2024 12:11 AM [facility] Chloride 104 98 - 107 mmol/L 05/24/2024 12:11 AM [facility] CO2 23 22 - 29 mmol/L 05/24/2024 12:11 AM [facility] Glucose 165(H) 70 - 99 mg/dL 05/24/2024 12:11 AM [facility] Calcium 10.3(H) 8.4 - 10.2 mg/dL 05/24/2024 12:11 AM [facility] Protein Total 7.6 6.0 - 8.3 g/dL 05/24/2024 12:11 AM [facility] Albumin 4.2 3.4 - 5.0 g/dL 05/24/2024 12:11 AM [facility] Bilirubin Total 0.6 0.2 - 1.2 mg/dL 05/24/2024 12:11 AM [facility] Alkaline Phosphatase 75 40 - 150 U/L 05/24/2024 12:11 AM [facility] ALT 18 5 - 55 U/L 05/24/2024 12:11 AM [facility] AST 17 5 - 34 U/L 05/24/2024 12:11 AM [facility] Anion Gap 13 6 - 16 05/24/2024 12:11 AM [facility] BUN/Creatinine Ratio 27(H) 7 - 23 05/24/2024 12:11 AM [facility] Osmolality Calculated 296(H) 275 - 295 mOsm/kg 05/24/2024 12:11 AM [facility] Albumin/Globulin Ratio 1.2 1.1 - 2.3 05/24/2024 12:11 AM [facility] eGFR by CKD-EPI 85(L) >=90 mL/min/1.7 3 m2 05/24/2024 12:11 AM [facility] Blood BLOOD SPECIMEN / Unknown Venipuncture / Unknown 05/23/2024 11:34 PM PORT SURVEYOR 05/23/2024 11:39 PM PORT SURVEYOR Nereida Bae MD LAB - CHEMISTRY [facility] Organization Address City/State/ZIP Co de Phone Number [address] [address], [facility] [phone] * LIPASE BLOOD (05/23/2024 11:34 PM PORT SURVEYOR) Lipase 10 8 - 78 U/L 05/24/2024 12:11 AM [facility] Blood BLOOD SPECIMEN / Unknown Venipuncture / Unknown 05/23/2024 11:34 PM PORT SURVEYOR 05/23/2024 11:39 PM PORT SURVEYOR Narrative [facility] - 05/24/2024 12:11 AM PORT SURVEYOR Lipase results from the Ha Alinity analyzer may not be comparable with other methodologies. Nereida Bae MD LAB - CHEMISTRY [facility] Performing Organization Address City/[facility]/ZIP Co de Phone Number [place] [address] [place] [address], [facility] [phone] * EKG 12-LEAD (05/23/2024 10:48 PM PORT SURVEYOR) Ventricular Rate 82 BPM [facility]USE Atrial Rate 82 BPM [facility] MUSE P-R Interval 140 ms [facility] MUSE QRS Duration ms 86 ms H MUSE Q-T Interval ms 364 ms [facility] MUSE QTC Calculation (Bezet) 425 ms [facility] MUSE Calculated P Hayti 59 degrees [facility] MUSE Calculated R Hayti -8 degrees [facility] MUSE Calculated T Hayti 47 degrees [facility] MUSE Interpretation EKG NORMAL SINUS RHYTHM POOR R WAVE PROGRESSION BORDERLINE ECG WHEN COMPARED WITH ECG OF 07-JUN-2023 12:52, POOR R WAVE PROGRESSION Now present Confirmed by DAVIS GRAHAM, CHIN ([id number]) on 05/28/2024 8:47:28 AM [facility] MUSE 05/23/2024 10:4 8 PM PORT SURVEYOR 05/28/2024 8:47 AM PORT SURVEYOR Nereida Bae MD ECG ORDERABLES Performing Organization Address [facility] Co de Phone Number [facility] * CARDIAC RHYTHM STRIP ORDER (05/07/2024 7:11 PM PORT SURVEYOR) Narrative 05/07/2024 7:11 PM PORT SURVEYOR Ordered by an unspecified provider. Scanned Document CARDIAC SERVICES ORD ERABLES * LARYNGEAL MASK AIRWAY (05/05/2024 7:43 AM PORT SURVEYOR) Narrative Yasmin Villasenor APRN-CRNA - 05/05/2024 7:43 AM PORT SURVEYOR Yasmin Villasenor APRN-CRNA 05/05/2024 7:43 AM [facility] [...] AM. Staff Section Anesthesia Provider: Yasmin Villasenor APRN-LEAH, Performed the procedure Luther Min MD GENERAL ANESTHESIA O RDERABLES * BONE DENSITY AXIAL SKELETON(1OR MORE SITES)[id number] (04/18/2022 10:35 AM PORT SURVEYOR) Anatomical Region Laterality Modality Other 04/18/2022 3:28 PM PORT SURVEYOR Narrative 04/18/2022 3:42 PM PORT SURVEYOR PROCEDURE: DEXA BONE DENSITY AXIAL SKELETON, DATE/TIME OF EXAM: 04/18/2022 10:35 AM, LOCATION [facility] INDICATION: M48.062: Spinal stenosis of lumbar region [...] below > Dictated by August Kwok MD ([employer]) 04/18/2022 3:29 PM Robert Sheridan DO have personally reviewed and interpreted this examination/study. > Interpreting Provider: Robert Paulino DO on 04/18/2022 3:42 PM Procedure Note Robert Paulino DO - 04/18/2022 PROCEDURE: DEXA BONE DENSITY AXIAL SKELETON, DATE/TIME OF EXAM:04/18/2022 10:35 AM, LOCATION [facility] INDICATION: M48.062: Spinal stenosis of lumbar region [...] below > Dictated by August Kwok MD ([employer]) 04/18/2022 3:29 PM IRobert DO have personally reviewed and interpreted this examination/study. > Interpreting Provider: Robert Paulino DO on 04/18/2022 3:42 PM Ally Pierre MD DEXA ORDERABLES from Last 3 Months or Most Recently Relevant to Health Maintenance Advance Directives * DNR - IF PULSELESS NO CPR, NO SHOCK (Latest Code Status on File) Date Activated Date Inactivated Comments 05/24/2024 6:22 AM 05/25/2024 5:21 PM Question Answer Comments : DO NOT discontinue a ny active orders without asking attending physician. * Full Code Date Activated Date Inactivated Comments 07/02/2023 11:58 AM 07/04/2023 2:24 PM Care Teams Neon Pumper Relationship Specialty Start Date End Date Kavon Juarez MD [address] [place] [id number] PCP - General 07/20/22 Ashkan Mott MD [facility] [place] [address] Endocrinology 06/22/22
--- OUTSIDE RECORDS SUMMARY | 2024-06-25 14:04 | XMS_ITS | Clinical Summary ---
Author Organization [facility] Address [address], [address] [address] Phone Care Team Providers Care Cultural Centre Manager Name Role Phone Kavon Juarez MD Primary Care Provider [phone] Allergies No known active allergies Medications GABAPENTIN PO Take 300 mg by mouth nightly. Active oxybutynin (DITROPAN) 5 MG Tablet Take 5 mg by mouth daily. Active cyclobenzaprine (FLEXERIL) 10 MG Tablet Take 10 mg by mouth 3 times daily as needed. Active ALBUTEROL IN take by inhalation Daily as needed. Active lisinopril-hydr oCHLOROthiazide (PRINZIDE, ZESTORETIC) 20-12.5 MG Tablet lisinopril 20 mg-hydrochlorot hiazide 12.5 mg tablet Take 1 tablet every day by oral route. Active Multiple Vitamin (MULTI-VITAMIN PO) Take by mouth. Activ e omeprazole (PriLOSEC) 40 MG CAPSULE DELAYED RELEASE TAKE 1 CAPSULE BY MOUTH TWICE DAILY BEFORE MEAL(S) 180 Cap 0 Active diphenoxylate-a tropine (Lomotil) 2.5-0.025 MG TabletIndicatio ns:Diarrhea Take 1 Tablet by mouth once. Indications: Diarrhea Active Active Problems Problem Noted Date Diagnosed Date Spinal stenosis of lumbar re gion without neurogenic claudication 10/19/2020 SUNDEEP (obstructive sleep apnea) 06/23/2019 Non morbid obesity 06/23/2019 Benign essential HTN 06/23/2019 Gastroesophageal reflux disease without esophagi tis 06/23/2019 Family History Medical History Relation Name Comments Hypertension Father Breast Cancer Mother Diabetes Mother Breast Cancer Sister Diabetes Sister Relation Name Status Comments Father Mother Alive Breast cancer, Diabeties Sister Breast cancer, diabeties Social History Tobacco Use Types Packs/Day Years Used Date Smoking Tobacco: Never Smokeless Tobacco: Never Tobacco Cessation:Counseling Given: No Alcohol Use Standard Drinks/Week Comments Yes 0 (1 standard drink = 0.6 oz pur e alcohol) rarely AUDIT-C Answer Date Recorded Frequency of Alcohol Consumption Monthly or less 12/30/2018 Average Number of Drinks Not on file 019 Frequency of Binge Drinking Not on file 12/14 Comments No Sex and Gender Information Value Date Recorded Sex Assigned at Not on file Legal Sex Female 9:19 PM CDT Gender Identity Not on file Sexual Orientation Not on file Last Filed Vital Signs Vital Sign Reading Time Taken Comments Blood Pressure 116/59 10/19/2020 1:55 PM CDT Pulse 58 10/19/2020 1:55 PM CDT Temperature 36.5 C (97.7 F) 10/19/2020 1:55 PM CDT Respiratory Rate 16 10/19/2020 1:55 PM CDT Oxygen Saturation 99% 10/19/2020 1:55 PM CDT Inhaled Oxygen Concentration - - Weight 89.4 kg (197 lb) 09/28/2020 3:00 PM CDT Height 165.1 cm (5' 5 ) 09/28/2020 3:00 PM CDT Body Mass Index 32.78 09/28/2020 3:00 PM CDT Plan of Treatment Health Maintenance Due Date Last Done Comments Hepatitis C Virus (HCV) Screening 1950 Mammogram 1950 Cologuard 2002 Zoster Immunization (1 of 2) 2002 Immunochemical Fecal Occult Blood 06/06/2016 06/06/2015 Influenza Immunization (#1) 12/15/202302/13, 02/22/2021, 02/07/2020, Additional history exists SARS-COV-2 Immunization ( season) 2023 04/27/2021, 07/21/2020, 06/23/2020 DEXA Bone Density 04/18/2024 04/18/2022 Colonoscopy 02/17/2026 02/17/2019 Colorectal Cancer Screening 02/17/2026 Respiratory Syncytial Virus (RSV) Immunization (Adult) (1 - 1-dose 75+ series) 06/29/2027 02/17/2019 DTaP/Tdap/Td Immunization Discontinued 10/10/2015 TdaP Immunization Completed 10/10/2015 Pneumococcal Immunization (50+ years) Completed 11/17/2018, 10/28/2017 Pneumococcal Immunization Combined Discontinued 11/17/2018, 10/28/2017 Hepatitis B Immunization Aged Out No longer eligible based on patient's age to complete this topic Meningococcal Immunization (ACWY) Aged Out No longer eligible based on patient's age to complete this topic Rotavirus Immunization Aged Out No lo nger eligible based on patient's age to complete this topic Procedures Procedure Name Priority Date/Time Associated Diagnosis Comments STOOL, OCCULT BLOOD, DIAGNOS TIC, VIA GUAIAC Routine 06/06/2015 from Last 3 Months or Most Recently Relevant to Health Maintenance Results * STOOL, OCCULT BLOOD, DIAGNOSTIC (06/06/2015) Stool specimen (specimen) STOOL SPECIMEN / Unknown us Unknown Provider BODY FLUIDS & STOOLS ORDERABLES Final Result from Last 3 Months or Most Recently Relevant to Health Maintenance Care Teams Cultural Centre Manager Relationship Specialty Start Date End Date Kavon Juarez MD [address] [place] [address] PCP - General Family Medicine 08/30/22
--- OUTSIDE RECORDS SUMMARY | 2024-06-25 14:04 | XMS_ITS | Referral Summary ---
Author Organization [facility] Address [address] [place] [address] Care Team Providers Care Senior Treasury Consultant Name Role Phone Ashkan Mott MD Unavailable [phone] Kavon Juarez MD Primary Care Provider [phone] Source Comments [facility],non-owned Affiliates and Associated Physician Practices is amultiple site organization consisting of ambulatory clinics and hospital sitesin [place], [place], [place] and [place]. This disclosure is being madepursuant to the Care Everywhere program and may not contain all information available regarding this patient. Last updated 18.[facility] Encounters Date Type Department Care Team Description 06/15/2024 9:00 AM SAFETY INTERN - 06/15/2024 11:59 PM SAFETY INTERN Hospital Encounter [facility] OT [address] [place] [address] Shahzad Vaughn MD Rudd, Jason, OT Hand/Upper Extremity Surgery Discharge Disposition: Home or Self Care 06/12/2024 12:58 PM SAFETY INTERN - 06/12/2024 11:59 PM SAFETY INTERN Hospital Encounter [facility] OT [address] [place] [address] Shahzad Vaughn MD Rudd, Jason, OSCAR Discharge Disposition: Home or Self Care 06/05/2024 12:34 PM SAFETY INTERN - 06/05/2024 11:59 PM SAFETY INTERN Hospital Encounter [facility] OT [address] [place] [address] Shahzad Vaughn MD Rudd, Jason, OT Discharge Disposition: Home or Self Care 05/26/2024 Telephone Transitional Care at [address] [address] Rosaura Mayo, group insurance specialist 05/26/2024 Telephone Transitional Care at [address] [address] Rosaura Mayo, group insurance specialist 05/26/2024 Telephone Transitional Care at [address] [address] Rosaura Mayo, group insurance specialist 05/24/2024 2:42 AM SAFETY INTERN - 05/25/2024 4:21 PM SAFETY INTERN Hospital Encounter [facility] SHORT STAY UNIT [address] [place] [address] Damian Sosa MD Freedle, Ryan L, MD Vaidyan, Philip B, MD Hospitalist Discharge Disposition: Home or Self Care 05/24/2024 Travel 05/23/2024 Travel 05/21/2024 Travel 05/21/2024 9:30 AM SAFETY INTERN Office Visit [facility] [address] [place] [phone] Shahzad Vaughn MD Hand numbness (Primary Dx) 05/16/2024 Refill [facility] [address] [place] [phone] Kaiden Sapp MD Refill Request 05/05/2024 Orders Only [facility] [address] [place] [phone] Shahzad Vaughn MD Right carpal tunnel syndrome 05/05/2024 7:28 AM SAFETY INTERN Anesthesia Event [facility] [address] [place] [phone] Luther Min MD 05/05/2024 Travel 05/05/2024 7:15 AM SAFETY INTERN - 05/05/2024 8:40 AM SAFETY INTERN Surgery [facility] [address] [place] [address] Shahzad Vaughn MD CARPAL TUNNEL RELEASE, ENDOSCOPIC CUBITAL TUNNEL RELEASE, PRONATOR RELEASE--LEFT AND CARPAL TUNNEL WRIST INJECTION--RIGHT 05/05/2024 5:37 AM SAFETY INTERN - 05/05/2024 10:43 AM [facility] Hospital Encounter [facility] [address] [place] [address] Shahzad Vaughn MD Surgery General Discharge Disposition: Home or Self Care 05/04/2024 Travel 04/30/2024 Travel 04/17/2024 Refill [facility] [address] [place] [address], [place] [address] Kaiden Sapp MD Refill Request from Last 3 Months Allergies Active Allergy Reactions Criticality Noted Date [...] Exomphalos 06/12/2016 04/30/2023 Overview (04/30/2023): Umbilical hernia Immunizations Name Administration Dates Next Due INFLUENZA [...] Recorded Patient Health Questionnaire-2 Score 0 02/20/2024 [facility] [place] [facility] Occup[facility] ional [facility] - Occupational Stress [...] place to sleep or slept in a jail (including now)? No 07/02/2023 Housing Stability Vital Sign Answer Mode e Recorded In the last 12 months, was t here a time when you were not able to pay the mortgage or rent on time? No 05/25/2024 In the past 12 months, how m any times have you moved where you were living? 0 05/25/2024 At any time in the past 12 m [facility], were you homeless or living in a jail (including now)? No 05/25/2024 Sex and Gender Information Value Date Recorded Sex Assigned at Not on file Gender Identity Not on file Sexual Orientation Not on file Last Filed Vital Signs Vital Sign Reading Time Taken Comments Blood Pressure 154/95 05/25/2024 7:39 AM SAFETY INTERN Pulse 62 05/25/2024 7:39 AM SAFETY INTERN Temperature 36.8 C (98.2 F) 05/25/2024 7:39 AM SAFETY INTERN Respiratory Rate 16 05/25/2024 7:39 AM SAFETY INTERN Oxygen Saturation 95% 05/25/2024 7:39 AM SAFETY INTERN Inhaled Oxygen Concentration - - Weight 68 kg (150 lb) 05/24/2024 11:43 AM SAFETY INTERN Height 165.1 cm (5' 5 ) 05/24/2024 11:43 AM SAFETY INTERN Body Mass Index 24.96 05/24/2024 11:43 AM SAFETY INTERN Functional Status Functional Status Response Date of Assess ment Is person deaf or have serious hearing difficult y? No 05/24/2024 Is person blind or have serious difficulty seein g? No 05/24/2024 Does person have serious dif ficulty walking/climbing stairs? No 05/24/2024 Does person have difficulty dressing/bathing? No 05/24/2024 Does person have difficulty doing errands alone? No 05/24/2024 Cognitive Status Response Date of Assessm ent Does person have difficulty concentrating/remembering/making decisions? No 05/24/2024 Plan of Treatment Upcoming Encounters Date Type Department Care Team (Late st Contact Info) Description 07/09/2024 9:30 AM CDT Office Visit [facility] Orth[facility]ics [address] [place] [phone] Shahzad Vaughn MD [address] [place] [address] [place] [address] 07/16/2024 2:00 PM CDT Office Visit [facility] [address] [place] [phone] Kaiden Sapp MD [address] [place] [address] ORTHOPEDIC SURGERY [place], [place] [id number] Procedures Procedure Name Priority Date/Time Associated Diagnosis Comments CARDIAC EKG ORDER 05/25/2024 1:3 3 PM SAFETY INTERN PHOSPHORUS BLOOD Routine 05/25/2024 2:18 AM SAFETY INTERN Diverticulitis of colon MAGNESIUM BLOOD Routine 05/25/2024 2:18 AM SAFETY INTERN Diverticulitis of colon CBC W/O DIFFERENTIAL Routine 05/25/2024 2:18 AM SAFETY INTERN Diverticulitis of colon BASIC METABOLIC PANEL (CALCIUM TOTAL) Routine 05/25/2024 2:18 AM SAFETY INTERN Diverticulitis of colon URINE MICROSCOPIC ONLY REFLEX TO CULTURE STAT 05/24/2024 4:33 AM SAFETY INTERN URINALYSIS REFLEX MICROSCOPIC REFLEX CULTURE STAT 05/24/2024 4:[address] ABDOMEN PELVIS W CONTRAST STAT 05/24/2024 3:34 AM SAFETY INTERN Nausea and vomiting, unspecified vomiting type TROPONIN-I HIGH SENSITIVE REFLEX 1HOUR Timed 05/23/2024 11:53 PM SAFETY INTERN TROPONIN-I HIGH SENSITIVE BASELINE + 1HR STAT 05/23/2024 11:34 PM SAFETY INTERN LIPASE BLOOD STAT 05/23/2024 11:34 PM SAFETY INTERN LACTIC ACID BLOOD REFLEX TO REPEAT STAT 05/23/2024 11:34 PM SAFETY INTERN COMPREHENSIVE METABOLIC PANEL STAT 05/23/2024 11:34 PM SAFETY INTERN CBC W AUTO DIFFERENTIAL STAT 05/23/2024 11:34 PM SAFETY INTERN EKG 12-LEAD Routine 05/23/2024 10:48 PM SAFETY INTERN Nausea and vomiting, unspecified vomiting type CARDIAC RHYTHM STRIP ORDER 05/07/2024 7:11 PM SAFETY INTERN LARYNGEAL MASK AIRWAY Routine 05/05/2024 7:43 AM SAFETY INTERN W[place] WRIST ARTHROSCOP,RELEASE XVERS LIG 05/05/2024 7:19 AM SAFETY INTERN Diagnosis unknown Special Needs NEEDS TOURNIQUET, HAND TABLE DEXA BONE DENSITY AXIAL SKELETON Routine 04/18/2022 10:35 AM SAFETY INTERN Spinal stenosis of lumbar region with neurogenic claudication from Last 3 Months or Most Recently Relevant to Health Maintenance Results * CARDIAC EKG ORDER (05/25/2024 1:33 PM SAFETY INTERN) Narrative 05/25/2024 1:33 PM SAFETY INTERN Ordered by an unspecified provider. Scanned Document CARDIAC SERVICES ORD ERABLES * CBC W/O DIFFERENTIAL (05/25/2024 2:18 AM SAFETY INTERN) WBC 4.2 4.0 - 10.7 x10E9/L 05/25/2024 2:36 AM [facility] RBC Count 4.05 3.90 - 5.20 x10E12/L 05/25/2024 2:36 AM [facility] Hemoglobin 12.6 11.9 - 15.8 g/dL 05/25/2024 2:36 AM [facility] Hematocrit 38.1 34.8 - 46.1 % 05/25/2024 2:36 AM [facility] MCV 94.1 80.0 - 98.0 fL 05/25/2024 2:36 AM [facility] MCH 31.1 26.7 - 33.6 pg 05/25/2024 2:36 AM [facility] MCHC 33.1 31.7 - 36.3 g/dL 05/25/2024 2:36 AM [facility] RDW-CV 12.8 11.3 - 14.8 % 05/25/2024 2:36 AM [facility] Platelet Count 175 150 - 420 x10E9/L 05/25/2024 2:36 AM [facility] MPV 11.2 7.8 - 11.4 fL 05/25/2024 2:36 AM [facility] Blood BLOOD SPECIMEN / Unknown Lab Venipuncture / Unknown 05/25/2024 2:18 AM SAFETY INTERN 05/25/2024 2:27 AM [facility] Quinn Riddle MD LAB - HEMATOLOGY ORD ERABLES [facility] [address] [place] [address], [facility] [phone] * (ABNORMAL) BASIC METABOLIC PANEL (CALCIUM TOTAL) (05/25/2024 2:18 AM [facility]) BUN 11 7 - 26 mg/dL 05/25/2024 2:54 AM [facility] Creatinine 0.73 0.56 - 0.96 mg/dL 05/25/2024 2:54 AM [facility] Sodium 139 136 - 145 mmol/L 05/25/2024 2:54 AM [facility] Potassium 3.9 3.5 - 4.5 mmol/L 05/25/2024 2:54 AM [facility] Chloride 106 98 - 107 mmol/L 05/25/2024 2:54 AM [facility] CO2 25 22 - 29 mmol/L 05/25/2024 2:54 AM [facility] Glucose 110(H) 70 - 99 mg/dL 05/25/2024 2:54 AM [facility] Calcium 8.8 8.4 - 10.2 mg/dL 05/25/2024 2:54 AM [facility] Anion Gap 8 6 - 16 05/25/2024 2:54 AM [facility] BUN/Creatinine Ratio 15 7 - 23 05/25/2024 2:54 AM [facility] Osmolality Calculated 288 275 - 295 mOsm/kg 05/25/2024 2:54 AM [facility] eGFR by CKD-EPI 88(L) >=90 mL/min/1.7 3 m2 05/25/2024 2:54 AM [facility] Blood BLOOD SPECIMEN / Unknown Lab Venipuncture / Unknown 05/25/2024 2:18 AM SAFETY INTERN 05/25/2024 2:28 AM [facility] Quinn Riddle MD LAB - CHEMISTRY AMADO Philip Organization Address City/State/ZIP Co de Phone Number [facility] [address] [place] [phone], [facility] [phone] * PHOSPHORUS BLOOD (05/25/2024 2:18 AM [facility]) Phosphorus 3.2 2.9 - 5.1 mg/dL 05/25/2024 8:02 AM SAFETY INTERN [facility] Blood BLOOD SPECIMEN / Unknown Lab Venipuncture / Unknown 05/25/2024 2:18 AM SAFETY INTERN 05/25/2024 2:28 AM SAFETY INTERN Vikram Webbaudra [facility] LAB - CHEMISTRY ORDERABLES Performing Organization Address City/[facility]/ZIP Co de Phone Number [address] [address], [place] [phone] * MAGNESIUM BLOOD (05/25/2024 2:18 AM SAFETY INTERN) Magnesium 1.6 1.6 - 2.6 mg/dL 05/25/2024 8:02 AM SAFETY INTERN [facility] Blood BLOOD SPECIMEN / Unknown Lab Venipuncture / Unknown 05/25/2024 2:18 AM SAFETY INTERN 05/25/2024 2:28 AM SAFETY INTERN Vikram Boo [facility] LAB - CHEMISTRY ORDERABLES Performing Organization Address [facility]/ZIP Co de Phone Number [address] [address], [place] [phone] * (ABNORMAL) URINE MICROSCOPIC ONLY REFLEX TO CULTURE (05/24/2024 4:33 AM SAFETY INTERN) Reflex Status Culture not indicated 05/24/2024 5:28 AM [facility] WBC UA 6-10(A) None Seen, 0-5 /HPF 05/24/2024 5:28 AM [facility] Squamous Epithelial Cells UA 0-2 None Seen, 0-2, 3-5 /HPF 05/24/2024 5:28 AM [facility] Mucus UA 3+ /LPF 05/24/2024 5:28 AM [facility] Urine URINE SPECIMEN OBTAINED BY CLEAN CATCH PROCEDURE / Unknown Collection / Unknown 05/24/2024 4:33 AM SAFETY INTERN 05/24/2024 4:44 AM SAFETY INTERN Narrative [facility] - 05/24/2024 5:28 AM SAFETY INTERN Damian Sosa MD LAB - URINALYSIS ORD ERABLES [facility] [address] [place] [address], [facility] [phone] * (ABNORMAL) URINALYSIS REFLEX MICROSCOPIC REFLEX CULTURE (05/24/2024 4:33 AM SAFETY INTERN) Color UA Yellow Straw, Yellow 05/24/2024 4:59 AM [facility] Clarity UA Clear Clear 05/24/2024 4:59 AM [facility] Specific [place] UA 1.038(H) 1.005 - 1.030 05/24/2024 4:59 AM [facility] pH UA 5.0 5.0 - 8.0 pH 05/24/2024 4:59 AM [facility] Protein UA 1+(A) Negative 05/24/2024 4:59 AM [facility] Glucose UA Negative Negative 05/24/2024 4:59 AM [facility] Ketone UA 1+(A) Negative 05/24/2024 4:59 AM [facility] Bilirubin UA Negative Negative 05/24/2024 4:59 AM [facility] Blood UA Negative Negative 05/24/2024 4:59 AM [facility] Nitrite UA Negative Negative 05/24/2024 4:59 AM [facility] Leukocyte Esterase Negative Negative 05/24/2024 4:59 AM [facility] Urobilinogen UA Negative Negative mg/dL 05/24/2024 4:59 AM [facility] Urine URINE SPECIMEN OBTAINED BY CLEAN CATCH PROCEDURE / Unknown Collection / Unknown 05/24/2024 4:33 AM SAFETY INTERN 05/24/2024 4:44 AM [facility] Narrative [facility] - 05/24/2024 4:59 AM SAFETY INTERN Damian Sosa MD LAB - URINALYSIS ORD ERABLES Performing Organization Address [facility]/ZIP Co de Phone Number [facility] [address] [place] [address], [facility] [phone] * CT Abdomen Pelvis W Contrast (05/24/2024 3:34 AM SAFETY INTERN) Anatomical Region Laterality Modality Abdomen, Pelvis Computed Tomogra phy 05/24/2024 4:12 AM SAFETY INTERN Impressions 05/24/2024 10:22 AM SAFETY INTERN IMPRESSION: 1.Findings suggestive of acute, uncomplicated diverticulitis with small volume of free fluid adjacent to the sigmoid colon and a small focus of extraluminal air. Mild dilation of adjacent loops small bowel likely reflecting reactive ileus. 2.Moderate sized hiatal hernia. 3.Solitary right kidney. > Dictated by Malachi Johnson MD (president financial institution). I, Saira Fleming MD have personally reviewed and interpreted this examination/study. > Interpreting Provider: Saira Fleming MD on 05/24/2024 10:22 AM Narrative 05/24/2024 10:22 AM SAFETY INTERN PROCEDURE: CT ABDOMEN PELVIS W CONTRAST, DATE/TIME OF EXAM: 05/24/2024 3:34 AM, LOCATION [facility] INDICATION: R11.2: Nausea and [...] ABDOMEN PELVIS W CONTRAST, DATE/TIME OF EXAM: 53:34 AM, LOCATION [facility] INDICATION: R11.2: Nausea and [...] kidney. > Dictated by Malachi Johnson MD (president financial institution). I, Saira Fleming MD have personally reviewed and interpreted this examination/study. > Interpreting Provider: Saira Fleming MD on 05/24/2024 10:22 AM Damian Sosa MD CT ORDERABLES * TROPONIN-I HIGH SENSITIVE REFLEX 1HOUR (05/23/2024 11:53 PM SAFETY INTERN) Pathologist [facility] Troponin I High Sensitive 4 <=14 ng/L 05/24/2024 12:54 AM SAFETY INTERN [facility] Delta Troponin I HS 05/24/2024 12:54 AM [facility] Comment:Delta value intentio kashif not calculated. Baseline to 1 hour specimen collection interval exceeded. Blood BLOOD SPECIMEN / Unknown Venipuncture / Unknown 05/23/2024 11:53 PM SAFETY INTERN 05/24/2024 12:15 AM SAFETY INTERN Nereida Bae MD LAB - CHEMISTRY AMADO DENG [address] [address], [facility] [phone] * LACTIC ACID BLOOD REFLEX TO REPEAT (05/23/2024 11:34 PM SAFETY INTERN) Lactic Acid-Stat 1.5 <=2.0 mmol/L 05/24/2024 12:07 AM SAFETY INTERN [facility] Blood BLOOD SPECIMEN / Unknown Venipuncture / Unknown 05/23/2024 11:34 PM SAFETY INTERN 05/23/2024 11:38 PM SAFETY INTERN Nereida Bae MD LAB - CHEMISTRY AMADO DENG [address] [address], [place] [phone] * TROPONIN-I HIGH SENSITIVE BASELINE + 1HR (05/23/2024 11:34 PM SAFETY INTERN) [facility] Troponin I High Sensitive 4 <=14 ng/L 05/24/2024 12:16 AM [facility] Blood BLOOD SPECIMEN / Unknown Venipuncture / Unknown 05/23/2024 11:34 PM SAFETY INTERN 05/23/2024 11:39 PM SAFETY INTERN Nereida Bae MD LAB - CHEMISTRY AMADO DENG [facility] Organization Address City/State/ZIP Co de Phone Number [facility] [address] [place] [phone], [facility] [phone] * (ABNORMAL) CBC W AUTO DIFFERENTIAL (05/23/2024 11:34 PM SAFETY INTERN) [facility] WBC 13.5(H) 4.0 - 10.7 x10E9/L 05/23/2024 11:45 PM [facility] RBC Count 5.20 3.90 - 5.20 x10E12/L 05/23/2024 11:45 PM [facility] Hemoglobin 16.1(H) 11.9 - 15.8 g/dL 05/23/2024 11:45 PM [facility] Hematocrit 47.5(H) 34.8 - 46.1 % 05/23/2024 11:45 PM [facility] MCV 91.3 80.0 - 98.0 fL 05/23/2024 11:45 PM [facility] MCH 31.0 26.7 - 33.6 pg 05/23/2024 11:45 PM [facility] MCHC 33.9 31.7 - 36.3 g/dL 05/23/2024 11:45 PM [facility] RDW-CV 12.6 11.3 - 14.8 % 05/23/2024 11:45 PM [facility] Platelet Count 236 150 - 420 x10E9/L 05/23/2024 11:45 PM [facility] MPV 11.3 7.8 - 11.4 fL 05/23/2024 11:45 PM [facility] Neutrophil % 94.2(H) 41.0 - 74.0 % 05/23/2024 11:45 PM [facility] Lymphocyte % 2.2(L) 17.0 - 47.0 % 05/23/2024 11:45 PM [facility] Monocyte % 3.2 3.0 - 11.0 % 05/23/2024 11:45 PM [facility] Eosinophil % 0.0 0.0 - 7.0 % 05/23/2024 11:45 PM [facility] Basophil % 0.1 0.0 - 1.6 % 05/23/2024 11:45 PM [facility] Immature Granulocytes % 0.3 0.0 - 1.0 % 05/23/2024 11:45 PM [facility] Neutrophil Absolute 12.68(H) 1.60 - 7.50 x10E9/L 05/23/2024 11:45 PM [facility] Lymphocyte Absolute 0.30(L) 1.00 - 4.40 x10E9/L 05/23/2024 11:45 PM [facility] Monocyte Absolute 0.43 0.15 - 1.00 x10E9/L 05/23/2024 11:45 PM [facility] Eosinophil Absolute 0.00 0.00 - 0.60 x10E9/L 05/23/2024 11:45 PM [facility] Basophil Absolute 0.02 0.00 - 0.13 x10E9/L 05/23/2024 11:45 PM [facility] Blood BLOOD SPECIMEN / Unknown Venipuncture / Unknown 05/23/2024 11:34 PM SAFETY INTERN 05/23/2024 11:39 PM [facility] Nereida Bae MD LAB - HEMATOLOGY ORD ERABLES [facility] [address] [place] [address], [facility] [phone] * (ABNORMAL) COMPREHENSIVE METABOLIC PANEL (05/23/2024 11:34 PM [facility]) BUN 20 7 - 26 mg/dL 05/24/2024 12:11 AM [facility] Creatinine 0.75 0.56 - 0.96 mg/dL 05/24/2024 12:11 AM [facility] Sodium 140 136 - 145 mmol/L 05/24/2024 12:11 AM [facility] Potassium 4.1 3.5 - 4.5 mmol/L 05/24/2024 12:11 AM [facility] Chloride 104 98 - 107 mmol/L 05/24/2024 12:11 AM [facility] CO2 23 22 - 29 mmol/L 05/24/2024 12:11 AM [facility] Glucose 165(H) 70 - 99 mg/dL 05/24/2024 12:11 AM [facility] Calcium 10.3(H) 8.4 - 10.2 mg/dL 05/24/2024 12:11 AM [facility] Protein Total 7.6 6.0 - 8.3 g/dL 05/24/2024 12:11 AM [facility] Albumin 4.2 3.4 - 5.0 g/dL 05/24/2024 12:11 AM [facility] Bilirubin Total 0.6 0.2 - 1.2 mg/dL 05/24/2024 12:11 AM [facility] Alkaline Phosphatase 75 40 - 150 U/L 05/24/2024 12:11 AM [facility] ALT 18 5 - 55 U/L 05/24/2024 12:11 AM [facility] AST 17 5 - 34 U/L 05/24/2024 12:11 AM [facility] Anion Gap 13 6 - 16 05/24/2024 12:11 AM [facility] BUN/Creatinine Ratio 27(H) 7 - 23 05/24/2024 12:11 AM [facility] Osmolality Calculated 296(H) 275 - 295 mOsm/kg 05/24/2024 12:11 AM [facility] Albumin/Globulin Ratio 1.2 1.1 - 2.3 05/24/2024 12:11 AM [facility] eGFR by CKD-EPI 85(L) >=90 mL/min/1.7 3 m2 05/24/2024 12:11 AM [facility] Blood BLOOD SPECIMEN / Unknown Venipuncture / Unknown 05/23/2024 11:34 PM SAFETY INTERN 05/23/2024 11:39 PM SAFETY INTERN Nereida Bae MD LAB - CHEMISTRY AMADO DENG Performing Organization Address [facility] Co de Phone Number [address] [address], [facility] [phone] * LIPASE BLOOD (05/23/2024 11:34 PM SAFETY INTERN) Pathologist [facility] Lipase 10 8 - 78 U/L 05/24/2024 12:11 AM SAFETY INTERN [facility] Blood BLOOD SPECIMEN / Unknown Venipuncture / Unknown 05/23/2024 11:34 PM SAFETY INTERN 05/23/2024 11:39 PM SAFETY INTERN Narrative [facility] - 05/24/2024 12:11 AM SAFETY INTERN Lipase results from the [employer] Alinity analyzer may not be comparable with other methodologies. Nereida Bae MD LAB - CHEMISTRY AMADO DENG Performing Organization Address [facility] de Phone Number [address] [address], [facility] [phone] * EKG 12-LEAD (05/23/2024 10:48 PM SAFETY INTERN) [facility] Signature Ventricular Rate 82 BPM [facility] MUSE Atrial Rate 82 BPM [facility] MUSE P-R Interval 140 ms [facility] MUSE QRS Duration ms 86 ms [facility] MUSE Q-T Interval ms 364 ms [facility] MUSE QTC Calculation (Bezet) 425 ms [facility] MUSE Calculated P [place] 59 degrees SL MUSE Calculated R [place] -8 degrees [facility] MUSE Calculated T [place] 47 degrees [facility] MUSE Interpretation EKG NORMAL SINUS RHYTHM POOR R WAVE PROGRESSION BORDERLINE ECG WHEN COMPARED WITH ECG OF 07-JUN-2023 12:52, POOR R WAVE PROGRESSION Now present Confirmed by DAVIS GRAHAM, CHIN ([id number]) on 05/28/2024 8:47:28 AM [facility] MUSE 05/23/2024 10:4 8 PM SAFETY INTERN 05/28/2024 8:47 AM SAFETY INTERN Nereida Bae MD ECG ORDERABLES Performing Organization Address [facility] Co de Phone Number [facility] MUSE * CARDIAC RHYTHM STRIP ORDER (05/07/2024 7:11 PM SAFETY INTERN) Narrative 05/07/2024 7:11 PM SAFETY INTERN Ordered by an unspecified provider. Scanned Document CARDIAC SERVICES ORD ERABLES * LARYNGEAL MASK AIRWAY (05/05/2024 7:43 AM SAFETY INTERN) Narrative Yasmin Villasenor APRN-CRNA - 05/05/2024 7:43 AM SAFETY INTERN Yasmin Villasenor APRN-CRNA 05/05/2024 7:43 AM LMA [...] RDERABLES * BONE DENSITY AXIAL SKELETON(1OR MORE SITES)[id number] (04/18/2022 10:35 AM SAFETY INTERN) Anatomical Region Laterality Modality Other 04/18/2022 3:28 PM SAFETY INTERN Narrative 04/18/2022 3:42 PM SAFETY INTERN PROCEDURE: DEXA BONE DENSITY AXIAL SKELETON, DATE/TIME OF EXAM: 04/18/2022 10:35 AM, LOCATION [facility] INDICATION: M48.062: Spinal stenosis [...] = -2.5 and below > Dictated by Auguts Kwok MD (Trucking Manager) 04/18/2022 3:29 PM Robert Sheridan DO have personally reviewed and interpreted this examination/study. > Interpreting Provider: Robert Paulino DO on 04/18/2022 3:42 PM Procedure Note Robert Paulino DO - 04/18/2022 PROCEDURE: DEXA BONE DENSITY AXIAL SKELETON, DATE/TIME OF EXAM:04/18/2022 10:35 AM, LOCATION [facility] INDICATION: M48.062: Spinal stenosis [...] below > Dictated by August Kwok MD (Trucking Manager) 04/18/2022 3:29 PM Robert Sheridan DO have personally reviewed and interpreted this examination/study. > Interpreting Provider: Robert Paulino DO on 04/18/2022 3:42 PM Ally VLALE ORDERABLES from Last 3 Months or Most [...] 11:58 AM 07/04/2023 2:24 PM Care Teams Senior Treasury Consultant Relationship Specialty Start Date End Date Kavon Juarez MD [address] [place] [phone] PCP - General 07/20/22 Ashkan Mott MD [address] [place] [address] Endocrinology 06/22/22
--- OUTSIDE RECORDS SUMMARY | 2024-06-25 14:04 | XMS_ITS | Clinical Summary ---
Author Organization [facility] Address [address] [place] [address] Care Team Providers Care Cessation Systems Outreach Specialist Name Role Phone Abiel Crowe Primary Care Provider [phone] Toni Pena MD Unavailable Allergies No known active allergies Active Problems Problem Noted Date Diagnosed Date Senile osteoporosis 07/30/2022 Social History Tobacco Use Types Packs/Day Years Used Date Smoking Tobacco: Never Assessed Comments Unknown Sex and Gender Information Value Date Recorded Sex Assigned at Not on file Legal Sex Female 11:45 AM CDT Gender Identity Not on file Sexual Orientation Not on file Plan of Treatment Health Maintenance Due Date Last Done Comments Colorectal Cancer Screening Colonoscopy (10 Years) 1952 Hepatitis C 1970 DTaP, Tdap and Td Vaccines ( 1 - Tdap) 06/29/1971 Mammogram Screening 1992 Zoster Vaccines (1 of 2) 2002 Dexa Scan (General) 2017 Pneumococcal Vaccine: 65+ Ye ars (1 of 1 - PCV) 2017 COVID-19 Vaccine ( - 2023-2 5 season) 2023 Influenza Adult (#1) 2024 RSV Immunization or 60+ Years (1 - 1-dose 75+ series) 06/29/2027 Meningococcal B Vaccine Aged Out No l onger eligible based on patient's age to complete this topic Meningococcal Vaccine Aged Out No chano ochoa eligible based on patient's age to complete this topic RSV Immunizations Under 20 Months Aged Out No longer eligible based on patient's age to complete this topic Care Teams Cessation Systems Outreach Specialist Relationship Specialty Start Date End Date Aibel Crowe PA [address] [place] [phone] PCP - General PHYSICIAN FAMILY ENGAGEMENT SPECIALIST 12/04/21 Toni Pena MD [address] [place] [address] [phone] Consulting Physician INTERNAL MEDICINE 12/04/21
== END 2024-06-25 12:37 | disposition home or self-care (01) ==
PROVIDERS: PCP Physician Assistant; Visit Provider Physician Assistant
DX: R19.7 Diarrhea, unspecified (principal)
CPT/HCPCS: 87045; 87177; 87209; 87427; 87449; 87493

== ENCOUNTER 2024-08-13 13:32 | Outpatient (CLI) | payer MEDICARE, SELFPAY ==
--- NOTE | ~2024-08-13 | DEXA_ITS ---
Bone Density Report Name: MARCUS HE Age: 74 Sex: Female Ethnicity: White Date of : 1950 Indication: postmenopausal; screening for osteoporosis; height loss; asthma or emphysema; hysterectomy; Referring Provider: DANTE, DANIELLA Study: Bone densitometry was performed. Exam Date: August 13, 2024 Accession number: [id number] Bone Density: Region BMD T-score Z-score Classification AP Spine(L1, L2, L3) 1.239 2.0 4.2 Normal Femoral Neck (Left) 0.791 -0.5 1.4 Normal Total Hip (Left) 1.017 0.6 2.2 Normal Femoral Neck (Right) 0.825 -0.2 1.7 Normal Total Hip (Right) 1.007 0.5 2.2 Normal Total Hip Mean 1.012 0.6 2.2 Normal World Health Organization criteria for BMD impression classify patients as: Normal (T-score at or above -1.0), Osteopenia (T-score between -1.0 and -2.5), or Osteoporosis (T-score at or below -2.5). 10-year Fracture Risk: FRAX not reported because: All T-scores for Spine Total, Hip Total, Femoral Neck at or above -1.0 Clinical Information Provided by Patient: Has used the following medications: HRT (i.e. estrogen/hormone therapy), Vitamin D Has the following medical conditions: Asthma or Emphysema, Hysterectomy Patient maximum height was 66 Menopause Age: 44 Does not regularly consume dairy products Drinks caffeinated beverages Onset of menses at age 15 Number of children 0 Impression: The patient has normal bone mass. Discussion: BONE DENSITY IS ABOVE THE MINIMUM DESIRABLE LEVEL AT ALL SKELETAL SITES TESTED. This patient?s bone mineral density is above the minimum desirable level (T-score -1.0 or better) at all sites measured. The patient should follow a healthful lifestyle (good nutrition with adequate calcium and vitamin D, and appropriate weight-bearing exercise). Follow-Up: Consider repeating this study in 5 years or sooner if there is some new clinical indication. Reported by: YUDY on 08/13/2024 2:31:00 PM. Reviewed, dictated and finalized at location [facility]
--- OUTSIDE RECORDS SUMMARY | 2024-08-13 14:29 | XMS_ITS | Continuity of Care Document ---
Author Organization [facility] Address [address] [place] [address] Phone Care Team Providers Care Cinder Pitman Name Role Phone Rodney Luu DO Unavailable [...] Diagnoses Date Provider Providers Copied on Encounter [facility], [address], [place], [address], [place] tel:[phone] [facility] Back Pain (chief complaint) Radiculopathy of lumbosacral regionSpinal stenosis of lumbar region 6 Jus Stevens. [address] [facility] [address], [place], [place], [id number] . tel: [phone] OFFICE/OUTPA TIENT VISIT EST [facility], [address] [place] [address], [facility], tel:[phone] [facility] Lumbar spine (chief complaint) Spinal stenosis of lumbar regionSpondylos is of lumbosacral region without myelopathy or radiculopathyRa diculopathy of lumbosacral region 6 Jus Stevens. [address], [place], [place], [id number] . tel: [phone] [facility], [address] [place] [address], [facility], [phone] [facility] [place] No Information 6 Jus Stevens. [address], [place], [place], [id number] . tel: [phone] [facility], [address] [place] [address], [place], [place], [facility], tel:[phone] [facility] [place] Lumbar spine (chief complaint) No Information 6 Jus Stevens. [address], [place], [place], [id number] . tel: [phone] Family History Family Member Type Diagnosis Age At Onset Father Problem (finding) hypertension Payers Payer name Insurance type Covered libertarian ID Authorashlie friend(s) [place] [employer]- [place] ONLY E2 [id number] Social History Type Description Quantity Date [...]
--- OUTSIDE RECORDS SUMMARY | 2024-08-13 14:29 | XMS_ITS | Clinical Summary ---
Author Organization [facility] Address [address] [place] [address] Care Team Providers Care Clinical Safety Specialist Name Role Phone Ashkan Mott MD Unavailable [phone] Kavon Juarez MD Primary Care Provider Source Comments [facility],non-owned Affiliates and Associated Physician Practices is amultiple site organization consisting of ambulatory clinics and hospital sitesin [place], [place], [place] and [place]. This disclosure is being madepursuant to the Care Everywhere program and may not contain all information available regarding this patient. Last updated 18.[facility] Allergies Active Allergy Reactions Criticality Noted Date Comments Cat Hair Extract Rhinitis Medium 07/10/2024 Codeine Nausea and/or Vomiting Medium 04/30/2024 Dog Epithelium Rhinitis Medium 07/10/2024 Grass Pollen(K-O-R-T-Swt Harris) Rhinitis Medium 07/10/2024 Latex Rash Medium 04/30/2024 Reddness with condoms Medications * Be aware that medications may not be up to date on this document. Alwaysverify current medications with the patient. lisinopril-hydr oCHLOROthiazide (Prinzide; Zestoretic) 20-12.5 MG tablet Take 1 (one) tablet by mouth once daily 05/31/19 22 Active montelukast (Singulair) 10 MG tablet Take 1 (one) tablet by mouth once daily 03/23/20 22 Active famotidine (Pepcid) 20 MG tablet Take 1 (one) tablet by mouth 2 times daily 02/18/20 22 Active albuterol HFA (Proventil; Ventolin; Proair) 108 (90 Base) MCG/ACT inhaler Inhale 1 (one) puff to 2 (two) puffs by mouth every 6 hours as needed for Shortness of Breath, Wheezing or Cough 04/10/20 22 Active oxyBUTYnin (Ditropan) 5 MG tablet Take 1 (one) tablet by mouth once daily Active vitamin D3 (Cholecalcifero l) 25 MCG (1000 UNITS) tablet Take 1 (one) tablet by mouth once daily Active MULTIPLE VITAMIN PO Take 1 tablet by mouth once daily Active Biotin w/ Vitamins C & E (HAIR/SKIN/NAIL S PO) Take 1 tablet by mouth once daily Active docusate sodium (Colace) 100 MG capsuleIndicati ons:Constipatio n Take 1 (one) capsule by mouth once daily as needed for Constipation Narcotics can cause constipation. Please take while taking narcotic pain medications to avoid constipation. Do not take if having loose stools. Reasons: Constipation 05/05/19 25 Active polyethylene glycol 3350 (MiraLax) 17 g packetIndicatio ns:Constipation Take 17 (seventeen) g by mouth once daily as needed for Constipation Narcotics can cause constipation. Please take while taking narcotic pain medications to avoid constipation. Do not take if having loose stools. Reasons: Constipation 05/05/19 25 Active acetaminophen (Tylenol) 325 MG tablet Take 2 (two) tablets by mouth every 4 hours as needed for Fever, Pain or Headache (For temperature GREATER than 101 ) Maximum allowable Acetaminophen amount = 4 Grams (4000 mg) / 24 hours. 05/25/19 25 Active calcium carbonate (Tums) 500 MG chew tablet Take 1 (one) tablet by mouth every 2 hours as needed for Heartburn 05/25/19 25 Active bisacodyl (Dulcolax) 10 MG suppository Insert 1 (one) suppository into the rectum once daily as needed for Constipation 05/25/19 25 Active estradiol (Estrace) 0.1 MG/GM vaginal cream Insert 1 g into the vagina Two times a week 07/01/19 25 Active omeprazole (PriLOSEC) 40 MG capsule Take 1 (one) capsule by mouth once daily Active meloxicam (Mobic) 15 MG tablet Take 1 (one) tablet by mouth once daily Active fluticasone-christen meterol (Advair Diskus) 250-50 MCG/ACT inhaler TAKE 1 PUFF BY MOUTH TWICE A DAY Active cyclobenzaprine (Flexeril) 10 MG tablet Take 1 (one) tablet by mouth 2 times daily Active cyclobenzaprine (Flexeril) 5 MG tablet TAKE 1 TABLET BY MOUTH THREE TIMES A DAY NEEDED FOR MUSCLE SPASM Active azithromycin (Zithromax) 500 MG tablet Take 1 (one) tablet by mouth once daily Active lisinopril (Prinivil; Zestril) 20 MG tablet Take 1 (one) tablet by mouth once daily 07/16/19 25 Active lidocaine (Lidoderm) 5 % patch Apply 1 (one) patch to skin every 24 hours Apply patch to most painful area and remove after 12 hours. May reapply a new patch 12 hours later. 14 patch 2 05/26/19 25 025 Discontin ued(Tx Complete) prochlorperazin e (Compazine) 10 MG tabletIndicatio ns:Nausea and Vomiting Take 1 (one) tablet by mouth every 8 hours as needed for Nausea/Vomiting Reasons: Nausea and Vomiting 25 tablet 1 5 3:02 PM CHICK GRADER 05/25/19 25 025 Discontin ued(Tx Complete) oxyCODONE, immediate release, (Roxicodone) 5 MG tabletIndicatio ns:Diverticulit is of colon Take 1 (one) tablet by mouth every 4 hours as needed for Pain 12 tablet 5 3:02 PM CHICK GRADER 05/25/19 25 025 Discontin ued(Tx Complete) fluticasone-christen meterol (Advair/Wixela) 100-50 MCG/ACT inhaler 025 Discontin ued(Tx Complete) HYDROcodone-flynn taminophen (Avery) 5-325 MG tabletIndicatio ns:Right carpal tunnel syndrome Take 1 (one) tablet by mouth every 6 hours as needed for Pain 12 tablet 07/22/19 25 025 Discontin ued(Tx Complete) Active Problems Problem Noted Date Diagnosed Date Obesity 07/23/2024 Overview (07/23/2024): s/p sleep study per GI Umbilical hernia 07/23/2024 Overview (07/23/2024): s/p sx on 06/29 Essential hypertension 07/23/2024 Bladder irritability 07/23/2024 Low back pain 07/23/2024 Overview (07/23/2024): MRI 06/28 -moderate lumbar spondylosis-sees ortho Right carpal tunnel syndrome 07/21/2024 Compression of right median nerve at elbow 07/21 Cubital tunnel syndrome on right 07/21/2024 Diverticulitis of colon 05/24/2024 05/24/19 25 Lumbar stenosis with neurogenic claudication Senile osteoporosis 07/30/2022 04/30/2023 Asthma 12/16/2020 Spinal stenosis of lumbar re gion without neurogenic claudication 10/19/2020 04/30/2023 SUNDEEP (obstructive sleep apnea) 06/23/2019 Non morbid obesity 06/23/2019 04/30/2023 Gastroesophageal reflux disease without esophagi tis 06/23/2019 04/30/2023 Benign essential HTN 06/23/2019 04/30/2023 Hepatitis C antibody positive 10/28/2017 Overview (07/23/2024): undetected viral load 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 10/28/2017 Hepatitis C antibody detected 10/28/2017 Overview (07/28/2024): undetected viral load Viral hepatitis C 12/05/2016 Pain in unspecified knee 10/01/2016 Overview (07/23/2024): sees ortho Varicose veins of lower extremity 07/30/2016 Overview (07/23/2024): s/p sx Exomphalos 06/12/2016 04/30/2023 Overview (04/30/2023): Umbilical hernia Encounters Date Type Department Care Team Description 08/11/2024 Travel 08/06/2024 12:45 PM CDT Office Visit [facility] [address] [place] [phone] Shahzad Vaughn MD Bilateral hand pain (Primary Dx) 08/06/2024 Travel 07/30/2024 2:01 PM CDT - 07/30/2024 11:59 PM CDT Hospital Encounter [facility] [address] [place] [phone] Kaiden Sapp MD Discharge Disposition: Home or Self Care 07/30/2024 1:45 PM CDT Office Visit [facility] [address] [place] [phone] Kaiden Sapp MD S/P lumbar laminectomy (Primary Dx); Spinal stenosis of lumbar region without neurogenic claudication; Lumbar radiculopathy, chronic; Myelopathy (HCC); Degenerative scoliosis; Degenerative scoliosis in adult patient; Spinal stenosis of lumbar region with neurogenic claudication; Leg edema, right 07/30/2024 Travel 07/21/2024 8:51 AM CDT Anesthesia Event [facility]GERY [address] [place] [phone] George Carranza MD Rinderer, Mallory, HAND STONE POLISHER-BROOM BUNDLER 07/21/2024 8:45 AM CDT - 07/21/2024 10:05 AM CDT Surgery [facility] [address] [place] [phone] Shahzad Vaughn MD Right endoscopic carpal tunnel, possible open 07/21/2024 6:50 AM CDT - 07/21/2024 10:44 AM CDT Hospital Encounter [facility] [address] [place] [phone] Shahzad Vaughn MD Orthopedics Discharge Disposition: Home or Self Care 07/21/2024 Orders Only [facility] [address] [place] [phone] Shahzad Vaughn MD Cubital tunnel syndrome on right ; Right carpal tunnel syndrome 07/21/2024 Orders Only [facility] [address] [place] [phone] Shahzad Vaughn MD Cubital tunnel syndrome on left ; Left carpal tunnel syndrome 07/21/2024 Travel 07/10/2024 Telephone [facility] [address] [place] [phone] Shahzad Vaughn MD Surgery Scheduling 07/09/2024 9:30 AM CDT Office Visit [facility] [address] [place] [phone] Shahzad Vaughn MD Left carpal tunnel syndrome (Primary Dx); Cubital tunnel syndrome on left; Median nerve compression at elbow, left; Right carpal tunnel syndrome; Cubital tunnel syndrome on right; Median nerve compression at elbow, right 07/09/2024 Travel 07/07/2024 Orders Only [facility] [address] [place] [phone] Kaiden Sapp MD S/P lumbar laminectomy 06/15/2024 9:00 AM CHICK GRADER - 06/15/2024 11:59 PM CHICK GRADER Hospital Encounter [facility] OT [address] [place] [address] Shahzad Vaughn MD Rudd, Jason, OT Hand/Upper Extremity Surgery Discharge Disposition: Home or Self Care 06/12/2024 12:58 PM CHICK GRADER - 06/12/2024 11:59 PM CHICK GRADER Hospital Encounter [facility] OT [address] [place] [address] Shahzad Vaughn MD Rudd, Jason, OT Discharge Disposition: Home or Self Care 06/05/2024 12:34 PM CHICK GRADER - 06/05/2024 11:59 PM CHICK GRADER Hospital Encounter [facility] [place] [facility] [place] [place] [address] Shahzad Vaughn MD Rudd, Jason, OT Discharge Disposition: Home or Self Care 05/26/2024 Telephone Transitional Care at [address] [phone] Rosaura Mayo, wrecker driver 05/26/2024 Telephone Transitional Care at [address] [phone] Rosaura Mayo, wrecker driver 05/26/2024 Telephone Transitional Care at [address] [phone] Rosaura Mayo, wrecker driver 05/24/2024 2:42 AM CHICK GRADER - 05/25/2024 4:21 PM CHICK GRADER Hospital Encounter [facility] SHORT STAY UNIT [address] [place] [address] Damian Sosa MD Freedle, Ryan L, MD Vaidyan, Philip B, MD Hospitalist Discharge Disposition: Home or Self Care 05/24/2024 Travel 05/23/2024 Travel 05/21/2024 9:30 AM CHICK GRADER Office Visit [facility] [address] [place] [phone] Shahzad Vaughn MD Hand numbness (Primary Dx) 05/21/2024 Travel 05/16/2024 Refill [facility] [address] [place] [phone] Kaiden Sapp MD Refill Request from Last 3 Months Immunizations Immunization Administration Dates Next Due Covid Moderna primary monova lent 12+ yr 0.5mL 04/27/2021,07/21/2020,06/23/2020 FLU VACCINE QUAD IIV4 SPLIT 0.25 ML IM 9,12/10/2016,01/30/2016 FLU VACCINE TRI IIV3 SPLIT I M (FLUVIRIN) 02/06/2014 INFLUENZA VACCINE, ADJUVANTE D, QUADR. (FLUAD QUADRIVALENT; 65Y+) (AIIV4) 05/25/2024(Deferred: Patient Refused) INFLUENZA VACCINE, HIGH-DOSE , QUADR. (FLUZONE HIGH-DOSE QUADRIVALENT; 65Y+), 0.7 ML (HD-IIV4) 02/27/2021,02/22/2021,02/07/2020 INFLUENZA VACCINE, HIGH-DOSE , TRIV. (FLUZONE HIGH-DOSE TRIVALENT; 65Y+) (HD-IIV3) 02/27/2021 INFLUENZA VACCINE, QUADR. (A FLURIA, FLUZONE QUADRIVALENT; 6MO+) (IIV4) 06/11/2023,01/25/2018 PNEUMOCOCCAL PPSV23 11/17/2018 Pneumococcal Pcv13 Conj 10/28/2017 TDAP (7yrs+) 10/10/2015 Social History Tobacco Use Types Packs/Day Years [...] Recorded Patient Health Questionnaire-2 Score 0 02/20/2024 [facility] - Occupational Stress [...] place to sleep or slept in a snf (including now)? No 07/02/2023 Housing Stability Vital Sign Answer Mode e Recorded In the last 12 months, was t here a time when you were not able to pay the mortgage or rent on time? No 05/25/2024 In the past 12 months, how m any times have you moved where you were living? 0 05/25/2024 At any time in the past 12 m [facility], were you homeless or living in a snf (including now)? No 05/25/2024 Comments Unknown Sex and Gender Information Value Date Recorded Sex Assigned at Not on file Legal Sex Female 9:14 AM CHICK GRADER Gender Identity Not on file Sexual Orientation Not on file Last Filed Vital Signs Vital Sign Reading Time Taken Comments Blood Pressure 176/96 07/21/2024 10:21 AM CDT Pulse 56 07/21/2024 10:21 AM CDT Temperature 36.1 C (97 F) 07/21/2024 10:14 AM CDT Respiratory Rate 19 07/21/2024 10:21 AM CDT Oxygen Saturation 97% 07/21/2024 10:21 AM CDT Inhaled Oxygen Concentration - - Weight 71.2 kg (157 lb) 07/21/2024 7:03 AM CDT Height 165.1 cm (5' 5 ) 07/21/2024 7:03 AM CDT Body Mass Index 26.13 07/21/2024 7:03 AM CDT Plan of Treatment Upcoming Encounters Date Type Department Care Team (Late st Contact Info) Description 08/14/2024 2:[address] [facility] OT [address] [place] [phone] Shahzad Vaughn MD [address] [place] [address] DIV OF ORTHOPEDIC SURGERY [place], [place] [phone] Abiel Adair, OT 08/27/2024 10:30 AM CDT [facility] [address] [place] [address], [place] [address] Blaise Baxter MD [address] [phone] 09/03/2024 9:30 AM CDT Hospital Encounter [facility] ENDOSCOPY [address] [place] [phone] Jose Bray MD [address] [place] [address] [address] [place] [address] Surgery General 09/03/2024 9:30 AM CDT - 09/03/2024 10:[address] [facility] ENDOSCOPY [address] [place] [phone] Jose Bray MD [address] [place] [address] [address] [place] [address] COLONOSCOPY SCREEN 09/03/2024 12:30 PM CDT Office Visit [facility] [address] [place] [phone] Shahzad Vaughn MD [address] [place] [address] [place] [address] 07/01/2025 2:00 PM CDT Office Visit [facility] [address] [place] [phone] Kaiden Sapp MD [address] [facility] [place] [address] Scheduled Procedures Name Priority Associated Diagnoses Date/Ti me COLONOSCOPY SCREEN Diverticulitis History of colon polyps 09/03/2024 9:30 AM CDT Health Maintenance Due Date Last Done Comments COLOGUARD (AGES 45-75) - COLON CA SCREENING [address] COLONOGRAPHY - COLON CA SCREENING 1950 FIT - COLON CA SCREENING 1950 FLEX SIG - COLON CA SCREENING 1950 LIPID TESTING 1950 ZOSTER VACCINE (1 of 2) 2002 Respiratory Syncytial Virus (RSV) Vaccine Pt: or over 60 yrs (1 - Risk 60-74 years 1-dose series) 2012 MAMMOGRAM 04/01/2019 04/01/2017 COVID-19 VACCINE ( season) 2023 04/27/2021, 07/21/2020, 06/23/2020 DEPRESSION SCREENING 04/15/2024 05/02/2023, 06/23/19 23 MEDICARE AWV CALENDAR YEAR 2024 INFLUENZA VACCINE (Season Ended) 2024 06/11/2023, 02/27/2021, 02/27/2021, Additional history exists DTAP/TDAP/TD VACCINES (2 - Td or Tdap) 10/09/2025 10/10/2015 COLONOSCOPY - COLON CA SCREENING 02/18/2029 02/18/2019 Colorectal Cancer Screening 02/18/2029 HEPATITIS C SCREENING Completed 12/05/2016 PNEUMOCOCCAL VACCINE 50+ Completed 11/17/2018, 10/13 BONE DENSITY TESTING Completed 04/18/2022 HEPATITIS B [...] Procedure Name Priority Date/Time Associated Diagnosis Comments XR THORACOLUMBAR SPINE 2VW Routine 07/30/2024 2:12 PM CDT S/P lumbar laminectomy LARYNGEAL MASK AIRWAY Routine 07/21/2024 9:21 AM CDT [place] REVISE ARM/LEG NERVE 07/21/2024 8:46 AM CDT Right carpal tunnel syndrome Cubital tunnel syndrome on right Special Needs SUPINE, GENERAL, arthrex MYRA [phone] [place] REVISE ULNAR NERVE AT ELBOW 07/21/2024 8:46 AM CDT Right carpal tunnel syndrome Cubital tunnel syndrome on right Special Needs SUPINE, GENERAL, arthrex MYRA [phone] [place] WRIST ARTHROSCOP,RELEASE XVERS LIG 07/21/2024 8:46 AM CDT Right carpal tunnel syndrome Cubital tunnel syndrome on right Special Needs SUPINE, GENERAL, arthrex MYRA [phone] CARDIAC EKG ORDER 05/25/2024 1:3 3 PM CHICK GRADER PHOSPHORUS BLOOD Routine 05/25/2024 2:18 AM CHICK GRADER Diverticulitis of colon MAGNESIUM BLOOD Routine 05/25/2024 2:18 AM CHICK GRADER Diverticulitis of colon CBC W/O DIFFERENTIAL Routine 05/25/2024 2:18 AM CHICK GRADER Diverticulitis of colon BASIC METABOLIC PANEL (CALCIUM TOTAL) Routine 05/25/2024 2:18 AM CHICK GRADER Diverticulitis of colon URINE MICROSCOPIC ONLY REFLEX TO CULTURE STAT 05/24/2024 4:33 AM CHICK GRADER URINALYSIS REFLEX MICROSCOPIC REFLEX CULTURE STAT 05/24/2024 4:[address] ABDOMEN PELVIS W CONTRAST STAT 05/24/2024 3:34 AM CHICK GRADER Nausea and vomiting, unspecified vomiting type TROPONIN-I HIGH SENSITIVE REFLEX 1HOUR Timed 05/23/2024 11:53 PM CHICK GRADER TROPONIN-I HIGH SENSITIVE BASELINE + 1HR STAT 05/23/2024 11:34 PM CHICK GRADER LIPASE BLOOD STAT 05/23/2024 11:34 PM CHICK GRADER LACTIC ACID BLOOD REFLEX TO REPEAT STAT 05/23/2024 11:34 PM CHICK GRADER COMPREHENSIVE METABOLIC PANEL STAT 05/23/2024 11:34 PM CHICK GRADER CBC W AUTO DIFFERENTIAL STAT 05/23/2024 11:34 PM CHICK GRADER EKG 12-LEAD Routine 05/23/2024 10:48 PM CHICK GRADER Nausea and vomiting, unspecified vomiting type DEXA BONE DENSITY AXIAL SKELETON Routine 04/18/2022 10:35 AM CHICK GRADER Spinal stenosis of lumbar region with neurogenic claudication from Last 3 Months or Most Recently Relevant to Health Maintenance Results * XR Thoracolumbar Spine 2Vw (07/30/2024 2:12 PM CDT) Anatomical Region Laterality Modality Spine Radiographic Maggi ging 07/30/2024 3:17 PM CDT Impressions 07/30/2024 3:18 PM CDT IMPRESSION: Moderate spondylosis. > Interpreting Provider: Sher Black MD on 07/30/2024 3:18 PM Narrative 07/30/2024 3:18 PM CDT PROCEDURE: XR THORACOLUMBAR SPINE 2VW DATE/TIME OF EXAM: 07/30/2024 2:13 PM CLINICAL INFORMATION: None relevant/not provided if blank. Indication: Z98.890: S/P lumbar laminectomy Additional History: COMPARISON: Lumbar spine radiographs 02/20/2024. TECHNIQUE: FINDINGS: There is grade 1 retrolisthesis at L2-3. There is moderate degenerative disc disease and joint disease at multiple levels. There is laminectomy in the L3-L5 region. There is levoscoliosis centered at thoracolumbar junction. The vertebral bodies are normal in height. Procedure Note Sher Black MD - 07/30/2024 PROCEDURE: XR THORACOLUMBAR SPINE 2VW DATE/TIME OF EXAM: 07/30/2024 2:13 PM CLINICAL INFORMATION: None relevant/not provided if blank. Indication: Z98.890: S/P lumbar laminectomy Additional History: COMPARISON: Lumbar spine radiographs 02/20/2024. TECHNIQUE: FINDINGS: There is grade 1 retrolisthesis at L2-3. There is moderate degenerative disc disease and joint disease at multiple levels. There is laminectomyin the L3-L5 region. There is levoscoliosis centered at thoracolumbar junction. The vertebral bodies are normal in height. IMPRESSION: Moderate spondylosis. > Interpreting Provider: Sher Black MD on 07/30/2024 3:18 PM Kaiden Sapp MD DIAGNOSTIC IMAGING ORDERABLES Fi nal Result * LARYNGEAL MASK AIRWAY (07/21/2024 9:21 AM CDT) Narrative Dara Levy CAA - 07/21/2024 9:21 AM CDT Dara Levy CAA 07/21/2024 9:21 AM LMA Placement Procedure/LDA Note: Patient Location: OR. LMA Insertion Date/Time: 07/21/2024 9:00 AM Procedure: LMA Pretreatment: 100% O2 Induction: standard IV Patient position: supine. Mask Ventilation: not attempted Type: gel LMA Size: 4 Number of Attempts: 1. Placement verified by: direct visualization and CO2 monitor Dentition unchanged? Yes Procedure Start Time: 07/21/2024 9:00 AM. Procedure End Time: 07/21/2024 9:00 AM. Procedure Total Time: 0 minutes. Staff Section Anesthesia Provider: Draa Levy CAA, Performed the procedure Provider #1: George Carranza MD. George Carranza MD GENERAL ANESTHESIA ORDERABLES Final Result * CARDIAC EKG ORDER (05/25/2024 1:33 PM CHICK GRADER) Narrative 05/25/2024 1:33 PM CHICK GRADER Ordered by an unspecified provider. us Scanned Document CARDIAC SERVICES ORDERABLES Fin al Result * CBC W/O DIFFERENTIAL (05/25/2024 2:18 AM CHICK GRADER) WBC 4.2 4.0 - 10.7 x10E9/L 05/25/2024 2:36 AM [facility] RBC Count 4.05 3.90 - 5.20 x10E12/L 05/25/2024 2:36 AM [facility] Hemoglobin 12.6 11.9 - 15.8 g/dL 05/25/2024 2:36 AM [facility] Hematocrit 38.1 34.8 - 46.1 % 05/25/2024 2:36 AM [facility] MCV 94.1 80.0 - 98.0 fL 05/25/2024 2:36 AM [facility] MCH 31.1 26.7 - 33.6 pg 05/25/2024 2:36 AM [facility] MCHC 33.1 31.7 - 36.3 g/dL 05/25/2024 2:36 AM [facility] RDW-CV 12.8 11.3 - 14.8 % 05/25/2024 2:36 AM [facility] Platelet Count 175 150 - 420 x10E9/L 05/25/2024 2:36 AM [facility] MPV 11.2 7.8 - 11.4 fL 05/25/2024 2:36 AM [facility] Blood BLOOD SPECIMEN / Unknown Lab Venipuncture / Unknown 05/25/2024 2:18 AM CHICK GRADER 05/25/2024 2:27 AM [facility] us Quinn Riddle MD LAB - HEMATOLOGY ORDERABLES Fi nal Result [facility] [address] [place] [phone], [facility] [phone] * (ABNORMAL) BASIC METABOLIC PANEL (CALCIUM TOTAL) (05/25/2024 2:18 AM CHICK GRADER) BUN 11 7 - 26 mg/dL 05/25/2024 2:54 AM [facility] Creatinine 0.73 0.56 - 0.96 mg/dL 05/25/2024 2:54 AM [facility] Sodium 139 136 - 145 mmol/L 05/25/2024 2:54 AM [facility] Potassium 3.9 3.5 - 4.5 mmol/L 05/25/2024 2:54 AM [facility] Chloride 106 98 - 107 mmol/L 05/25/2024 2:54 AM [facility] CO2 25 22 - 29 mmol/L 05/25/2024 2:54 AM [facility] Glucose 110(H) 70 - 99 mg/dL 05/25/2024 2:54 AM [facility] Calcium 8.8 8.4 - 10.2 mg/dL 05/25/2024 2:54 AM [facility] Anion Gap 8 6 - 16 05/25/2024 2:54 AM [facility] BUN/Creatinine Ratio 15 7 - 23 05/25/2024 2:54 AM [facility] Osmolality Calculated 288 275 - 295 mOsm/kg 05/25/2024 2:54 AM [facility] eGFR by CKD-EPI 88(L) >=90 mL/min/1.7 3 m2 05/25/2024 2:54 AM [facility] Blood BLOOD SPECIMEN / Unknown Lab Venipuncture / Unknown 05/25/2024 2:18 AM CHICK GRADER 05/25/2024 2:28 AM CHICK GRADER Quinn Riddle MD LAB - CHEMISTRY ORDERABLES Fin al Result Performing Organization Address City/State/[facility] Co de Phone Number [facility] [address] [place] [phone], [facility] [phone] * PHOSPHORUS BLOOD (05/25/2024 2:18 AM CHICK GRADER) Phosphorus 3.2 2.9 - 5.1 mg/dL 05/25/2024 8:02 AM [facility] Blood BLOOD SPECIMEN / Unknown Lab Venipuncture / Unknown 05/25/2024 2:18 AM CHICK GRADER 05/25/2024 2:28 AM CHICK GRADER Vikram Haddad HAND STONE POLISHER-BROOM BUNDLER LAB - CHEMISTRY ORDERABL ES Final Result Performing Organization Address City/[facility]/ZIP Co de Phone Number [address] [address], [place] [phone] * MAGNESIUM BLOOD (05/25/2024 2:18 AM CHICK GRADER) Magnesium 1.6 1.6 - 2.6 mg/dL 05/25/2024 8:02 AM [facility] Blood BLOOD SPECIMEN / Unknown Lab Venipuncture / Unknown 05/25/2024 2:18 AM CHICK GRADER 05/25/2024 2:28 AM CHICK GRADER [facility] - CHEMISTRY ORDERABL ES Final Result Performing Organization Address [facility] Co de Phone Number [address] [address], [place] [phone] * (ABNORMAL) URINE MICROSCOPIC ONLY REFLEX TO CULTURE (05/24/2024 4:33 AM CHICK GRADER) Reflex Status Culture not indicated 05/24/2024 5:28 AM [facility] WBC UA 6-10(A) None Seen, 0-5 /HPF 05/24/2024 5:28 AM [facility] Squamous Epithelial Cells UA 0-2 None Seen, 0-2, 3-5 /HPF 05/24/2024 5:28 AM [facility] Mucus UA 3+ /LPF 05/24/2024 5:28 AM [facility] Urine URINE SPECIMEN OBTAINED BY CLEAN CATCH PROCEDURE / Unknown Collection / Unknown 05/24/2024 4:33 AM CHICK GRADER 05/24/2024 4:44 AM CHICK GRADER Narrative [facility] - 05/24/2024 5:28 AM CHICK GRADER Damian Sosa MD LAB - URINALYSIS ORDERABLES Fi nal Result Performing Organization Address City/[facility]/ZIP Co de Phone Number [address] [address], [place] [phone] * (ABNORMAL) URINALYSIS REFLEX MICROSCOPIC REFLEX CULTURE (05/24/2024 4:33 AM [facility]) Color UA Yellow Straw, Yellow 05/24/2024 4:59 AM [facility] Clarity UA Clear Clear 05/24/2024 4:59 AM [facility] Specific [place] UA 1.038(H) 1.005 - 1.030 05/24/2024 4:59 AM [facility] pH UA 5.0 5.0 - 8.0 pH 05/24/2024 4:59 AM [facility] Protein UA 1+(A) Negative 05/24/2024 4:59 AM [facility] Glucose UA Negative Negative 05/24/2024 4:59 AM [facility] Ketone UA 1+(A) Negative 05/24/2024 4:59 AM [facility] Bilirubin UA Negative Negative 05/24/2024 4:59 AM [facility] Blood UA Negative Negative 05/24/2024 4:59 AM [facility] Nitrite UA Negative Negative 05/24/2024 4:59 AM [facility] Leukocyte Esterase Negative Negative 05/24/2024 4:59 AM [facility] Urobilinogen UA Negative Negative mg/dL 05/24/2024 4:59 AM [facility] Urine URINE SPECIMEN OBTAINED BY CLEAN CATCH PROCEDURE / Unknown Collection / Unknown 05/24/2024 4:33 AM [facility] 05/24/2024 4:44 AM [facility] Narrative [facility] - 05/24/2024 4:59 AM [facility] us Damian Sosa MD LAB - URINALYSIS ORDERABLES Fi nal Result [address] [address], [facility] [phone] * CT Abdomen Pelvis W Contrast (05/24/2024 3:34 AM [facility]) Anatomical Region Laterality Modality Abdomen, Pelvis Computed Tomogra phy 05/24/2024 4:12 AM [facility] Impressions 05/24/2024 10:22 AM [facility] IMPRESSION: 1.Findings suggestive of acute, uncomplicated diverticulitis with small volume of free fluid adjacent to the sigmoid colon and a small focus of extraluminal air. Mild dilation of adjacent loops small bowel likely reflecting reactive ileus. 2.Moderate sized hiatal hernia. 3.Solitary right kidney. > Dictated by Malachi Johnson MD (medical transcription radiology). I, Saira Fleming MD have personally reviewed and interpreted this examination/study. > Interpreting Provider: Saira Fleming MD on 05/24/2024 10:22 AM Narrative 05/24/2024 10:22 AM [facility] PROCEDURE: CT ABDOMEN PELVIS W CONTRAST, DATE/TIME OF EXAM: 05/24/2024 3:34 AM, LOCATION [facility] INDICATION: R11.2: Nausea and vomiting, unspecified vomiting [...] CONTRAST, DATE/TIME OF EXAM: 53:34 AM, LOCATION [facility] INDICATION: R11.2: Nausea and vomiting, unspecified vomiting [...] kidney. > Dictated by Malachi Johnson MD (medical transcription radiology). I, Saira Fleming MD have personally reviewed and interpreted this examination/study. > Interpreting Provider: Saira lFeming MD on 05/24/2024 10:22 AM Damian Sosa MD CT ORDERABLES Final Result * TROPONIN-I HIGH SENSITIVE REFLEX 1HOUR (05/23/2024 11:53 PM [facility]) [facility] Troponin I High Sensitive 4 <=14 ng/L 05/24/2024 12:54 AM [facility] [place] Troponin I HS 05/24/2024 12:54 AM [facility] Comment:Delta value intentio kashif not calculated. Baseline to 1 hour specimen collection interval exceeded. Blood BLOOD SPECIMEN / Unknown Venipuncture / Unknown 05/23/2024 11:53 PM [facility] 05/24/2024 12:15 AM [facility] Nereida Bae MD LAB - CHEMISTRY ORDERABLES Fi nal Result [address] [address], [facility] [phone] * LACTIC ACID BLOOD REFLEX TO REPEAT (05/23/2024 11:34 PM [facility]) [facility] Lactic Acid-Stat 1.5 <=2.0 mmol/L 05/24/2024 12:07 AM [facility] Blood BLOOD SPECIMEN / Unknown Venipuncture / Unknown 05/23/2024 11:34 PM [facility] 05/23/2024 11:38 PM [facility] Nereida Bae MD LAB - CHEMISTRY ORDERABLES Fi nal Result [address] [address], [facility] [phone] * TROPONIN-I HIGH SENSITIVE BASELINE + 1HR (05/23/2024 11:34 PM [facility]) [facility] Troponin I High Sensitive 4 <=14 ng/L 05/24/2024 12:16 AM [facility] Blood BLOOD SPECIMEN / Unknown Venipuncture / Unknown 05/23/2024 11:34 PM [facility] 05/23/2024 11:39 PM [facility] us Nereida Bae MD LAB - CHEMISTRY ORDERABLES Fi nal Result [facility] [address] [place] [phone] [phone] * (ABNORMAL) CBC W AUTO DIFFERENTIAL (05/23/2024 11:34 PM [facility]) [facility] WBC 13.5(H) 4.0 - 10.7 x10E9/L 05/23/2024 11:45 PM [facility] RBC Count 5.20 3.90 - 5.20 x10E12/L 05/23/2024 11:45 PM [facility] Hemoglobin 16.1(H) 11.9 - 15.8 g/dL 05/23/2024 11:45 PM [facility] Hematocrit 47.5(H) 34.8 - 46.1 % 05/23/2024 11:45 PM [facility] MCV 91.3 80.0 - 98.0 fL 05/23/2024 11:45 PM [facility] MCH 31.0 26.7 - 33.6 pg 05/23/2024 11:45 PM [facility] MCHC 33.9 31.7 - 36.3 g/dL 05/23/2024 11:45 PM [facility] RDW-CV 12.6 11.3 - 14.8 % 05/23/2024 11:45 PM [facility] Platelet Count 236 150 - 420 x10E9/L 05/23/2024 11:45 PM [facility] MPV 11.3 7.8 - 11.4 fL 05/23/2024 11:45 PM [facility] Neutrophil % 94.2(H) 41.0 - 74.0 % 05/23/2024 11:45 PM [facility] Lymphocyte % 2.2(L) 17.0 - 47.0 % 05/23/2024 11:45 PM [facility] Monocyte % 3.2 3.0 - 11.0 % 05/23/2024 11:45 PM [facility] Eosinophil % 0.0 0.0 - 7.0 % 05/23/2024 11:45 PM [facility] Basophil % 0.1 0.0 - 1.6 % 05/23/2024 11:45 PM [facility] Immature Granulocytes % 0.3 0.0 - 1.0 % 05/23/2024 11:45 PM [facility] Neutrophil Absolute 12.68(H) 1.60 - 7.50 x10E9/L 05/23/2024 11:45 PM [facility] Lymphocyte Absolute 0.30(L) 1.00 - 4.40 x10E9/L 05/23/2024 11:45 PM [facility] Monocyte Absolute 0.43 0.15 - 1.00 x10E9/L 05/23/2024 11:45 PM [facility] Eosinophil Absolute 0.00 0.00 - 0.60 x10E9/L 05/23/2024 11:45 PM [facility] Basophil Absolute 0.02 0.00 - 0.13 x10E9/L 05/23/2024 11:45 PM [facility] Blood BLOOD SPECIMEN / Unknown Venipuncture / Unknown 05/23/2024 11:34 PM [facility] 05/23/2024 11:39 PM [facility] us Nereida Bae MD LAB - HEMATOLOGY ORDERABLES F inal Result [facility] [address] [place] [phone], [facility] [phone] * (ABNORMAL) COMPREHENSIVE METABOLIC PANEL (05/23/2024 11:34 PM [facility]) BUN 20 7 - 26 mg/dL 05/24/2024 12:11 AM [facility] Creatinine 0.75 0.56 - 0.96 mg/dL 05/24/2024 12:11 AM [facility] Sodium 140 136 - 145 mmol/L 05/24/2024 12:11 AM [facility] Potassium 4.1 3.5 - 4.5 mmol/L 05/24/2024 12:11 AM [facility] Chloride 104 98 - 107 mmol/L 05/24/2024 12:11 AM [facility] CO2 23 22 - 29 mmol/L 05/24/2024 12:11 AM [facility] Glucose 165(H) 70 - 99 mg/dL 05/24/2024 12:11 AM [facility] Calcium 10.3(H) 8.4 - 10.2 mg/dL 05/24/2024 12:11 AM [facility] Protein Total 7.6 6.0 - 8.3 g/dL 05/24/2024 12:11 AM [facility] Albumin 4.2 3.4 - 5.0 g/dL 05/24/2024 12:11 AM [facility] Bilirubin Total 0.6 0.2 - 1.2 mg/dL 05/24/2024 12:11 AM [facility] Alkaline Phosphatase 75 40 - 150 U/L 05/24/2024 12:11 AM [facility] ALT 18 5 - 55 U/L 05/24/2024 12:11 AM [facility] AST 17 5 - 34 U/L 05/24/2024 12:11 AM [facility] Anion Gap 13 6 - 16 05/24/2024 12:11 AM [facility] BUN/Creatinine Ratio 27(H) 7 - 23 05/24/2024 12:11 AM [facility] Osmolality Calculated 296(H) 275 - 295 mOsm/kg 05/24/2024 12:11 AM [facility] Albumin/Globulin Ratio 1.2 1.1 - 2.3 05/24/2024 12:11 AM [facility] eGFR by CKD-EPI 85(L) >=90 mL/min/1.7 3 m2 05/24/2024 12:11 AM [facility] Blood BLOOD SPECIMEN / Unknown Venipuncture / Unknown 05/23/2024 11:34 PM [facility] 05/23/2024 11:39 PM [facility] Nereida Bae MD LAB - CHEMISTRY ORDERABLES Fi nal Result Performing Organization Address [facility]/ZIP Co de Phone Number [address] [address], [facility] [phone] * LIPASE BLOOD (05/23/2024 11:34 PM [facility]) Lipase 10 8 - 78 U/L 05/24/2024 12:11 AM [facility] Blood BLOOD SPECIMEN / Unknown Venipuncture / Unknown 05/23/2024 11:34 PM [facility] 05/23/2024 11:39 PM [facility] Narrative [facility] - 05/24/2024 12:11 AM [facility] Lipase results from the [employer] Alinity analyzer may not be comparable with other methodologies. Nereida Bae MD LAB - CHEMISTRY ORDERABLES Fi nal Result Performing Organization Address [facility] Co de Phone Number [address] [address], [facility] [phone] * EKG 12-LEAD (05/23/2024 10:48 PM [facility]) Ventricular Rate [address] [facility] Atrial Rate [address] [facility] P-R Interval [address] [facility] QRS Duration ms [address] [facility] Q-T Interval ms [address] [facility] QTC Calculation (Bezet) [address] [facility] Calculated P [place] [address] [facility] M[facility] Calculated R [place] -[address] [facility] Calculated T [place] [address] [facility] Interpretation EKG NORMAL SINUS RHYTHM POOR R WAVE PROGRESSION BORDERLINE ECG WHEN COMPARED WITH ECG OF 07-JUN-2023 12:52, POOR R WAVE PROGRESSION Now present Confirmed by DAVIS GRAHAM, CHIN ([id number]) on 05/28/2024 8:47:[address] [facility] MUSE 05/23/2024 10:4 8 PM [facility] 05/28/2024 8:47 AM [facility] Nereida Bae MD ECG ORDERABLES Edited Result - Final [facility] * BONE DENSITY AXIAL SKELETON(1OR MORE SITES)[id number] (04/18/2022 10:35 AM [facility]) Anatomical Region Laterality Modality Other 04/18/2022 3:28 PM [facility] Narrative 04/18/2022 3:42 PM [facility] PROCEDURE: DEXA BONE DENSITY AXIAL SKELETON, DATE/TIME OF EXAM: 04/18/2022 10:35 AM, LOCATION [facility] INDICATION: M48.062: Spinal stenosis of lumbar region [...] below > Dictated by August Kwok MD (Regulator Operator) 04/18/2022 3:29 PM Robert Sheridan DO have personally reviewed and interpreted this examination/study. > Interpreting Provider: Robert Paulino DO on 04/18/2022 3:42 PM Procedure Note Robert Paulino DO - 04/18/2022 PROCEDURE: DEXA BONE DENSITY AXIAL SKELETON, DATE/TIME OF EXAM:04/18/2022 10:35 AM, LOCATION [facility] INDICATION: M48.062: Spinal stenosis of lumbar region [...] below > Dictated by August Kwok MD (Regulator Operator) 04/18/2022 3:29 PM I, Robert Paulino DO have personally reviewed and interpreted this examination/study. > Interpreting Provider: Robert Paulino DO on 04/18/2022 3:42 PM Ally Pierre MD DEXA ORDERABLES Final Resul t from Last 3 Months or Most Recently Relevant to Health Maintenance Insurance [employer] MANAGED CARE MEDICARE ADV Advance Directives * DNR - IF PULSELESS NO CPR, NO SHOCK (Latest Code Status on File) Date Activated Date Inactivated Comments 05/24/2024 6:22 AM 05/25/2024 5:21 PM Question Answer Comments : DO NOT discontinue a ny active orders without asking attending physician. * Full Code Date Activated Date Inactivated Comments 07/02/2023 11:58 AM 07/04/2023 2:24 PM Care Teams Clinical Safety Specialist Relationship Specialty Start Date End Date Kavon Juarez MD [address] [place] [phone] PCP - General 07/20/22 Ashkan Mott MD [address] [place] [address] Endocrinology 06/22/22
--- OUTSIDE RECORDS SUMMARY | 2024-08-13 14:29 | XMS_ITS | Clinical Summary ---
Author Organization [facility] Address [address] [place] [address] Care Team Providers Care Crane Chaser Name Role Phone Abiel Crowe Primary Care Provider [phone] Toni Pena MD Unavailable Allergies No known [...] 1 - Tdap) 06/29/1971 Mammogram Screening 1992 Pneumococcal Vaccine: 50+ Ye ars (1 of 1 - PCV) 2002 Zoster Vaccines (1 of 2) 2002 Dexa Scan (General) 2017 COVID-19 Vaccine ( - 2023-2 5 season) 2023 RSV Immunization or 60+ Years (1 - [...] age to complete this topic Care Teams Crane Chaser Relationship Specialty Start Date End Date Abiel Crowe PA [address] [place] [phone] PCP - General PHYSICIAN EQUIPMENT SERVICE ENGINEER 12/04/21 Toni Pena MD [address] [place] [phone] Consulting Physician INTERNAL MEDICINE 12/04/21
--- OUTSIDE RECORDS SUMMARY | 2024-08-13 14:30 | XMS_ITS | Clinical Summary ---
Author Organization [facility] Address [address], [address] [phone] Phone Care Team Providers Care Climate Change Analyst Name Role Phone Kavon Juarez MD Primary Care Provider [phone] Allergies No known active allergies Medications GABAPENTIN [...] Recently Relevant to Health Maintenance Care Teams Climate Change Analyst Relationship Specialty Start Date End Date Kavon Juarez MD [address] [place] [address] PCP - General Family Medicine 08/30/22
--- OUTSIDE RECORDS SUMMARY | 2024-08-13 14:30 | XMS_ITS | Data Portability ---
Author Organization [facility] ASPENDoris Rondon Address [address] [place] [address] Care Team Providers Care Senior Procurement Manager Name Role Phone PAU MATA Primary Care Provider Assessment Encounter Date Assessment Date Assessment LastModified by Organization Details LastModified Time 04/26/2022 04/26/2022 Pt will keep appt for 05/01/22 if s/s still present or cancel if improving. [email or web address] Not available 04/26/2022 14:14:02 Plan of Treatment Reminders Order Date Submit Date Provider Last Modified By Organization Details Last Modified Time Details Appointments None recorded. Lab bacterial vaginosis panel, vaginal 2024 025 [facility] (Centralized Electronic Ordering - All Locations), Patient Can Go To The Location Of Their Choice, 16:11:45 HBsAg (hepatitis B surface Ag), EIA, serum 2024 025 [facility] (Centralized Electronic Ordering - All Locations), Patient Can Go To The Location Of Their Choice, 16:11:49 HIV 1 + 2, meaningful use set 2024 025 [facility] (Centralized Electronic Ordering - All Locations), Patient Can Go To The Location Of Their Choice, 5 16:11:51 Hepatitis C IgG Ab, qual, serum 2024 025 [facility] (Centralized Electronic Ordering - All Locations), Patient Can Go To The Location Of Their Choice, 5 16:11:42 RPR (rapid plasma reagin), serum 2024 025 [facility] Patient Can Go To The Location Of Their Choice, 16:11:50 HSV 2 IgG Ab, QN, IA, serum 2024 025 [facility] Patient Can Go To The Location Of Their Choice, 16:11:43 unlisted lab - CT/GC/TV GLORIA+M genitalium swab 2024 025 [facility] Patient Can Go To The Location Of Their Choice, 16:11:46 Referral None recorded. Procedures None recorded. Surgeries None recorded. Imaging None recorded. Medication Orders Estrace 0.01% (0.1 mg/gram) vaginal cream 2024 025 [id number] [address] [place], [address], 5 10:28:47 Diflucan 150 mg tablet 2022 023 [id number], [address] [place] [address], [address], 10:12:49 Macrobid 100 mg capsule 2022 023 [id number], [address] [place] [address], [address], 5 10:12:44 erythromyci n 5 mg/gram (0.5 %) eye ointment [address] [place], [address], 10:13:24 Advair Diskus 100 mcg-50 mcg/dose powder for inhalation 2021 022 [facility] [place], [address], 09:06:34 Patient TargetsNo targets recorded. Patient Instructions Encounter Date Encounter Id Patient Instructions Last Modified By Organization Details Last Modified Time 04/19/2021 [id number] A healthy lifestyle: care instructions nsuthan Not available 04/19/2021 08:55:07 f/u in 4 month nsuthan Not available 0 04/19/2021 09:00:12 04/25/2021 [id number] keep f/u nsuthan Not available 04/25 15:28:54 06/30/2024 [id number] A healthy lifestyle: care instructions [email or web address] Not available 06/30/2024 10:28:21 Reason for Referral None Reported. Results Created Date Observation Date Name Description Value Unit Range Abnormal Flag Note LastModifiedBy Organization Detail LastModifiedTime 03/22/2003/25/2021 URINE CULTU RE, [place] NE urine culture, routine Final report abnormal Not Available [facility] [address] [address] [facility], [place], [address], 03/26/2021 07:08:24 03/22/2003/25/2021 URINE CULTU [place] NE result 1 Escher ichia coli abnormal Cefaz rafia <=4 ug/mL Cefaz rafia with an GENIA <=16 predi cts susce ptibi lity to the oral agent s cefac ned, cefdi romana, cefpo doxim e, cefpr ozil, cefur oxime , cepha lexin , and lorac arbef when used for thera py of uncom plica roly urina ry tract infec tions due to E. coli, Klebs iella pneum oniae , and Prote us mirab ilis. Great er than 100,0 00 colon y formi ng units per mL Not Available [facility] [address] [facility], [place], [address], 03/26/2021 07:08:24 03/22/20 21 03/25/2021 URINE CULTU RE, ROUTI NE antimicrobia l susceptibili ty Commen t S = Susce ptibl e; I = Inter media te; R = Resis tant P = Posit guido; N = Negat guido MICS are expre ssed in micro grams per mL Antib iotic RSLT# 1 RSLT# 2 RSLT# 3 RSLT# 4 Amoxi cilli n/Cla vulan ic Acid S Ampic illin R Cefep enrique S Ceftr iaxon e S Cefur oxime S Cipro floxa jose antonio S Ertap enem S Genta micin S Imipe nem S Levof loxac in S Merop enem S Nitro furan toin S Piper acill in/Ta zobac antunez S Tetra cycli ne S Tobra mycin S Trime thopr im/Sutton lfa R Not Available [facility] [address] [facility], [place], [address], 03/26/2021 07:08:24 03/22/20 21 03/22/2021 urina lysis , dipst ick Leukocytes Modera te Not Available In-Office Order Internal Use Only DO Not Attach Compendium DO Not Attach Compendium, Do Not Delete/merge, [id number] 03/22/2021 10:55:26 03/22/20 21 03/22/2021 urina lysis , dipst ick Nitrite negati ve Not Available In-Office Order Internal Use Only DO Not Attach Compendium DO Not Attach Compendium, Do Not Delete/merge, [id number] 03/22/2021 10:55:26 03/22/20 21 03/22/2021 urina lysis , dipst ick Urobilinogen .2 Not Available In-Of fice Order Internal Use Only DO Not Attach Compendium DO Not Attach Compendium, Do Not Delete/merge, [id number] 03/22/2021 10:55:26 03/22/20 21 03/22/2021 urina lysis , dipst ick Protein 30 Not Available In-Office Order Internal Use Only DO Not Attach Compendium DO Not Attach Compendium, Do Not Delete/merge, [id number] 03/22/2021 10:55:26 03/22/20 21 03/22/2021 urina lysis , dipst ick pH 6.5 Not Available In-Office Order Internal Use Only DO Not Attach Compendium DO Not Attach Compendium, Do Not Delete/merge, [id number] 03/22/2021 10:55:26 03/22/20 21 03/22/2021 urina lysis , dipst ick Blood Modera te Not Available In-Office Order Internal Use Only DO Not Attach Compendium DO Not Attach Compendium, Do Not Delete/merge, [id number] 03/22/2021 10:55:26 03/22/20 21 03/22/2021 urina lysis , dipst ick Specific Watts 1.025 Not Available In-Off ice Order Internal Use Only DO Not Attach Compendium DO Not Attach Compendium, Do Not Delete/merge, [id number] 03/22/2021 10:55:26 03/22/20 21 03/22/2021 urina lysis , dipst ick Ketone Small Not Available In-Office Order Internal Use Only DO Not Attach Compendium DO Not Attach Compendium, Do Not Delete/merge, [id number] 03/22/2021 10:55:26 03/22/20 21 03/22/2021 urina lysis , dipst ick Bilirubin Small Not Available In-Offic e Order Internal Use Only DO Not Attach Compendium DO Not Attach Compendium, Do Not Delete/merge, [id number] 03/22/2021 10:55:26 03/22/20 21 03/22/2021 urina lysis , dipst ick Glucose Negati ve Not Available In-Office Order Internal Use Only DO Not Attach Compendium DO Not Attach Compendium, Do Not Delete/merge, [id number] 03/22/2021 10:55:26 03/27/20 21 03/27/2021 urina lysis , dipst ick Leukocytes Negati ve Not Available In-Office Order Internal Use Only DO Not Attach Compendium DO Not Attach Compendium, Do Not Delete/merge, [id number] 03/27/2021 15:07:13 03/27/20 21 03/27/2021 urina lysis , dipst ick Nitrite negati ve Not Available In-Office Order Internal Use Only DO Not Attach Compendium DO Not Attach Compendium, Do Not Delete/merge, [id number] 03/27/2021 15:07:13 03/27/20 21 03/27/2021 urina lysis , dipst ick Urobilinogen .2 Not Available In-Of fice Order Internal Use Only DO Not Attach Compendium DO Not Attach Compendium, Do Not Delete/merge, [id number] 03/27/2021 15:07:13 03/27/20 21 03/27/2021 urina lysis , dipst ick Protein Negati ve Not Available In-Office Order Internal Use Only DO Not Attach Compendium DO Not Attach Compendium, Do Not Delete/merge, [id number] 03/27/2021 15:07:13 03/27/20 21 03/27/2021 urina lysis , dipst ick pH 7.0 Not Available In-Office Order Internal Use Only DO Not Attach Compendium DO Not Attach Compendium, Do Not Delete/merge, [id number] 03/27/2021 15:07:13 03/27/20 21 03/27/2021 urina lysis , dipst ick Blood Negati ve Not Available In-Office Order Internal Use Only DO Not Attach Compendium DO Not Attach Compendium, Do Not Delete/merge, [id number] 03/27/2021 15:07:13 03/27/20 21 03/27/2021 urina lysis , dipst ick Specific Watts 1.005 Not Available In-Off ice Order Internal Use Only DO Not Attach Compendium DO Not Attach Compendium, Do Not Delete/merge, [id number] 03/27/2021 15:07:13 03/27/20 21 03/27/2021 urina lysis , dipst ick Ketone Negati ve Not Available In-Office Order Internal Use Only DO Not Attach Compendium DO Not Attach Compendium, Do Not Delete/merge, [id number] 03/27/2021 15:07:13 03/27/20 21 03/27/2021 urina lysis , dipst ick Bilirubin Negati ve Not Available In-Office Order Internal Use Only DO Not Attach Compendium DO Not Attach Compendium, Do Not Delete/merge, [id number] 03/27/2021 15:07:13 03/27/20 21 03/27/2021 urina lysis , dipst ick Glucose Negati ve Not Available In-Office Order Internal Use Only DO Not Attach Compendium DO Not Attach Compendium, Do Not Delete/merge, [id number] 03/27/2021 15:07:13 03/27/20 21 03/27/2021 urina lysis , dipst ick Appearance Clear Not Available In-Offi ce Order Internal Use Only DO Not Attach Compendium DO Not Attach Compendium, Do Not Delete/merge, [id number] 03/27/2021 15:07:13 03/27/20 21 03/27/2021 urina lysis , dipst ick Color Yellow Not Available In-Office Order Internal Use Only DO Not Attach Compendium DO Not Attach Compendium, Do Not Delete/merge, 03/27/2021 15:07:13 07/02/19 24 07/02/2023 Blood type and Indir ect antib annie scree n panel - Blood blood group antibody screen [presence] in serum or plasma NEG Antib annie Scree n NEG 07/01 7:41 AM [facility] Not Available Not Available 06/30/2024 10:00:00 07/02/19 24 07/02/2023 Blood type and Indir ect antib annie scree n panel - Blood ABO and Rh group [type] in blood O POS ABO Rh O POS 07/01 7:41 AM [facility] Not Available Not Available 06/30/2024 10:00:00 07/03/19 24 07/03/2023 Basic metab olic 1999 panel - Serum or Plasm a urea nitrogen [mass/volume ] in serum or plasma 8 mg/dL low: 7mg/dL high: 26mg/d L BUN 8 7 - 26 mg/dL 07/02 2:00 AM [facility] Not Available Not Available 06/30/2024 10:00:00 07/03/19 24 07/03/2023 Basic metab olic 1999 panel - Serum or Plasm a creatinine [mass/volume ] in serum or plasma 0.7 mg/dL low: 0.56mg /dLhig h: 0.96mg /dL Creat inine 0.70 0.56 - 0.96 mg/dL 07/02 2:00 AM [facility] Not Available Not Available 06/30/2024 10:00:00 07/03/19 24 07/03/2023 Basic metab olic 1999 panel - Serum or Plasm a sodium [moles/volum e] in serum or plasma 141 mmol/ L low: 136mmo l/Lhig h: 145mmo l/L Sodiu m 141 136 - 145 mmol/ L 07/02 2:00 [facility] Not Available Not Available 06/30/2024 10:00:00 07/03/19 24 07/03/2023 Basic metab olic 1999 panel - Serum or Plasm a potassium [moles/volum e] in serum or plasma 4.3 mmol/ L low: 3.5mmo l/Lhig h: 4.5mmo l/L Potas sium 4.3 3.5 - 4.5 mmol/ L 07/02 2:00 AM [facility] Not Available Not Available 06/30/2024 10:00:00 07/03/1907/03/2023 Basic metab olic 1999 panel - Serum or Plasm a chloride [moles/volum e] in serum or plasma 109 mmol/ L low: 98mmol /Lhigh : 107mmo l/L high Chlor cheryl 109 (H) 98 - 107 mmol/ L 07/02 2:00 AM [facility] Not Available Not Available 06/30/2024 10:00:00 07/03/1907/03/2023 Basic metab olic 1999 panel - Serum or Plasm a carbon dioxide, total [moles/volum e] in serum or plasma 25 mmol/ L low: 22mmol /Lhigh : 29mmol /L CO2 25 22 - 29 mmol/ L 07/02 2:00 AM [facility] Not Available Not Available 06/30/2024 10:00:00 07/03/19 24 07/03/2023 Basic metab olic 2000 panel - Serum or Plasm a glucose [mass/volume ] in serum or plasma 112 mg/dL low: 70mg/d Lhigh: 115mg/ dL Gluco se 112 70 - 115 mg/dL 07/02 2:00 AM [facility] Not Available Not Available 06/30/2024 10:00:00 07/03/19 24 07/03/2023 Basic metab olic 2000 panel - Serum or Plasm a calcium [moles/volum e] in serum or plasma 8.9 mg/dL low: 8.4mg/ dLhigh : 10.2mg /dL Calci um 8.9 8.4 - 10.2 mg/dL 07/02 2:00 AM [facility] Not Available Not Available 06/30/2024 10:00:00 07/03/19 24 07/03/2023 Basic metab olic 2000 panel - Serum or Plasm a anion gap 7 low: 6high: 16 Anion Gap 7 6 - 16 07/02 2:00 AM [facility] Not Available Not Available 06/30/2024 10:00:00 07/03/1907/03/2023 Basic metab olic 2000 panel - Serum or Plasm a urea nitrogen/cre atinine [mass ratio] in serum or plasma 11 low: 7high: 23 BUN/C reati nine Ratio 11 7 - 23 07/02 2:00 AM [facility] Not Available Not Available 06/30/2024 10:00:00 07/03/19 24 07/03/2023 Basic metab olic 2000 panel - Serum or Plasm a osmolality calculated 291 text: 275 - 295 mOsm/k g Osmol ality Calcu lated 291 275 - 295 mOsm/ kg 07/02 2:00 AM [facility] Not Available Not Available 06/30/2024 10:00:00 07/03/19 24 07/03/2023 Basic metab olic 2000 panel - Serum or Plasm a glomerular filtration rate/1.73 sq M.predicted [volume rate/area] in serum, plasma or blood by creatinine-b ased formula (CKD-epi) text: >=90 mL/min /1.73 m2 eGFR by CKD-E PI >90 >=90 mL/mi n/1.7 3 m2 07/02 2:00 AM [facility] Not Available Not Available 06/30/2024 10:00:00 07/03/1907/03/2023 Basic metab olic 2000 panel - Serum or Plasm a interpretati on and review of laboratory results Abnorm al Not Available Not Available 10:00:00 07/03/19 24 07/03/2023 CBC panel - Blood by Autom ated count leukocytes [#/volume] in blood by automated count 7.5 text: 4.0 - 10.7 x10e9/ L WBC 7.5 4.0 - 10.7 x10E9 /L 07/02 1:44 AM [facility] Not Available Not Available 06/30/2024 10:00:00 07/03/1907/03/2023 CBC panel - Blood by Autom ated count erythrocytes [#/volume] in blood by automated count 3.77 text: 3.90 - 5.20 x10e12 /L low RBC Count 3.77 (L) 3.90 - 5.20 x10E1 2/L 07/02 1:44 AM [facility] Not Available Not Available 06/30/2024 10:00:00 07/03/1907/03/2023 CBC panel - Blood by Autom ated count hemoglobin [mass/volume ] in blood 11.7 g/dL low: 11.9g/ dLhigh : 15.8g/ dL low Hemog lobin 11.7 (L) 11.9 - 15.8 g/dL 07/02 1:44 AM [facility] Not Available Not Available 06/30/2024 10:00:00 07/03/19 24 07/03/2023 CBC panel - Blood by Autom ated count hematocrit [volume fraction] of blood by automated count 34.5 % low: 34.8%h igh: 46.1% low Hemat ocrit 34.5 (L) 34.8 - 46.1 % 07/02 1:44 AM [facility] Not Available Not Available 06/30/2024 10:00:00 03/07/03/2023 CBC panel - Blood by Autom ated count MCV [entitic volume] by automated count 91.5 fL low: 80fLhi gh: 98fL MCV 91.5 80.0 - 98.0 fL 07/02 1:44 AM [facility] [employer] [facility] Not Available Not Available 06/30/2024 10:00:00 07/03/19 24 07/03/2023 CBC panel - Blood by Autom ated count MCH [entitic mass] by automated count 31 pg low: 26.7pg high: 33.6pg MCH 31.0 26.7 - 33.6 pg 07/02 1:44 AM [facility] Not Available Not Available 06/30/2024 10:00:00 07/03/1907/03/2023 CBC panel - Blood by Autom ated count MCHC [mass/volume ] by automated count 33.9 g/dL low: 31.7g/ dLhigh : 36.3g/ dL MCHC 33.9 31.7 - 36.3 g/dL 07/02 1:44 AM [facility] Not Available Not Available 06/30/2024 10:00:00 07/03/1907/03/2023 CBC panel - Blood by Autom ated count erythrocyte distribution width [ratio] by automated count 13.2 % low: 11.3%h igh: 14.8% RDW-C V 13.2 11.3 - 14.8 % 07/02 1:44 AM [facility] [employer] [facility] Not Available Not Available 06/30/2024 10:00:00 07/03/1907/03/2023 CBC panel - Blood by Autom ated count platelets [#/volume] in blood by automated count 153 text: 150 - 420 x10e9/ L Plate let Count 153 150 - 420 x10E9 /L 07/02 1:44 AM [facility] [employer] [facility] Not Available Not Available 06/30/2024 10:00:00 07/03/19 24 07/03/2023 CBC panel - Blood by Autom ated count platelet mean volume [entitic volume] in blood by automated count 11.6 fL low: 7.8fLh igh: 11.4fL high MPV 11.6 (H) 7.8 - 11.4 fL 07/02 1:44 AM [facility] Not Available Not Available 06/30/2024 10:00:00 07/03/19 24 07/03/2023 CBC panel - Blood by Autom ated count interpretati on and review of laboratory results Abnorm al Not Available Not Available 10:00:00 07/04/19 24 07/04/2023 Basic metab olic 1999 panel - Serum or Plasm a urea nitrogen [mass/volume ] in serum or plasma 6 mg/dL low: 7mg/dL high: 26mg/d L low BUN 6 (L) 7 - 26 mg/dL 07/03 1:50 AM [facility] Not Available Not Available 06/30/2024 10:00:01 07/04/19 24 07/04/2023 Basic metab olic 1999 panel - Serum or Plasm a creatinine [mass/volume ] in serum or plasma 0.6 mg/dL low: 0.56mg /dLhig h: 0.96mg /dL Creat inine 0.60 0.56 - 0.96 mg/dL 07/03 1:50 AM [facility] Not Available Not Available 06/30/2024 10:00:01 07/04/19 24 07/04/2023 Basic metab olic 1999 panel - Serum or Plasm a sodium [moles/volum e] in serum or plasma 137 mmol/ L low: 136mmo l/Lhig h: 145mmo l/L Sodiu m 137 136 - 145 mmol/ L 07/03 1:50 AM [facility] [employer] [facility] Not Available Not Available 06/30/2024 10:00:01 07/04/19 24 07/04/2023 Basic metab olic 2000 panel - Serum or Plasm a potassium [moles/volum e] in serum or plasma 3.6 mmol/ L low: 3.5mmo l/Lhig h: 4.5mmo l/L Potas sium 3.6 3.5 - 4.5 mmol/ L 07/03 1:50 AM [facility] Not Available Not Available 06/30/2024 10:00:01 07/04/19 24 07/04/2023 Basic metab olic 1999 panel - Serum or Plasm a chloride [moles/volum e] in serum or plasma 103 mmol/ L low: 98mmol /Lhigh : 107mmo l/L Chlor cheryl 103 98 - 107 mmol/ L 07/03 1:50 AM [facility] Not Available Not Available 06/30/2024 10:00:01 07/04/19 24 07/04/2023 Basic metab olic 1999 panel - Serum or Plasm a carbon dioxide, total [moles/volum e] in serum or plasma 26 mmol/ L low: 22mmol /Lhigh : 29mmol /L CO2 26 22 - 29 mmol/ L 07/03 1:50 AM [facility] Not Available Not Available 06/30/2024 10:00:01 07/04/19 24 07/04/2023 Basic metab olic 1999 panel - Serum or Plasm a glucose [mass/volume ] in serum or plasma 114 mg/dL low: 70mg/d Lhigh: 115mg/ dL Gluco se 114 70 - 115 mg/dL 07/03 1:50 AM [facility] Not Available Not Available 06/30/2024 10:00:01 07/04/19 24 07/04/2023 Basic metab olic 1999 panel - Serum or Plasm a calcium [moles/volum e] in serum or plasma 9 mg/dL low: 8.4mg/ dLhigh : 10.2mg /dL Calci um 9.0 8.4 - 10.2 mg/dL 07/03 1:50 AM [facility] Not Available Not Available 06/30/2024 10:00:01 07/04/19 24 07/04/2023 Basic metab olic 2000 panel - Serum or Plasm a anion gap 8 low: 6high: 16 Anion Gap 8 6 - 16 07/03 1:50 AM [facility] Not Available Not Available 06/30/2024 10:00:01 07/04/19 24 07/04/2023 Basic metab olic 2000 panel - Serum or Plasm a urea nitrogen/cre atinine [mass ratio] in serum or plasma 10 low: 7high: 23 BUN/C reati nine Ratio 10 7 - 23 07/03 1:50 AM [facility] [employer] [facility] Not Available Not Available 06/30/2024 10:00:01 07/04/19 24 07/04/2023 Basic metab olic 2000 panel - Serum or Plasm a osmolality calculated 282 text: 275 - 295 mOsm/k g Osmol rosa Calcu lated 282 275 - 295 mOsm/ kg 07/03 1:50 AM [facility] [employer] [facility] Not Available Not Available 06/30/2024 10:00:01 07/04/19 24 07/04/2023 Basic metab olic 2000 panel - Serum or Plasm a glomerular filtration rate/1.73 sq M.predicted [volume rate/area] in serum, plasma or blood by creatinine-b ased formula (CKD-epi) text: >=90 mL/min /1.73 m2 eGFR by CKD-E PI >90 >=90 mL/mi n/1.7 3 m2 07/03 1:50 AM [facility] [employer] [facility] Not Available Not Available 06/30/2024 10:00:01 07/04/19 24 07/04/2023 Basic metab olic 2000 panel - Serum or Plasm a interpretati on and review of laboratory results Abnorm al Not Available Not Available 10:00:01 07/04/19 24 07/04/2023 CBC panel - Blood by Autom ated count leukocytes [#/volume] in blood by automated count 8.2 text: 4.0 - 10.7 x10e9/ L WBC 8.2 4.0 - 10.7 x10E9 /L 07/03 1:51 AM [facility] [employer] [facility] Not Available Not Available 06/30/2024 10:00:00 07/04/19 24 07/04/2023 CBC panel - Blood by Autom ated count erythrocytes [#/volume] in blood by automated count 3.98 text: 3.90 - 5.20 x10e12 /L RBC Count 3.98 3.90 - 5.20 x10E1 2/L 07/03 1:51 AM [facility] Not Available Not Available 06/30/2024 10:00:00 07/04/19 24 07/04/2023 CBC panel - Blood by Autom ated count hemoglobin [mass/volume ] in blood 12.1 g/dL low: 11.9g/ dLhigh : 15.8g/ dL Hemog lobin 12.1 11.9 - 15.8 g/dL 07/03 1:51 AM [facility] Not Available Not Available 06/30/2024 10:00:00 07/04/1907/04/2023 CBC panel - Blood by Autom ated count hematocrit [volume fraction] of blood by automated count 36.5 % low: 34.8%h igh: 46.1% Hemat ocrit 36.5 34.8 - 46.1 % 07/03 1:51 AM [facility] Not Available Not Available 06/30/2024 10:00:00 07/04/19 24 07/04/2023 CBC panel - Blood by Autom ated count MCV [entitic volume] by automated count 91.7 fL low: 80fLhi gh: 98fL MCV 91.7 80.0 - 98.0 fL 07/03 1:51 AM [facility] Not Available Not Available 06/30/2024 10:00:00 07/04/1907/04/2023 CBC panel - Blood by Autom ated count MCH [entitic mass] by automated count 30.4 pg low: 26.7pg high: 33.6pg MCH 30.4 26.7 - 33.6 pg 07/03 1:51 AM [facility] Not Available Not Available 06/30/2024 10:00:00 07/04/1907/04/2023 CBC panel - Blood by Autom ated count MCHC [mass/volume ] by automated count 33.2 g/dL low: 31.7g/ dLhigh : 36.3g/ dL MCHC 33.2 31.7 - 36.3 g/dL 07/03 1:51 AM [facility] Not Available Not Available 06/30/2024 10:00:00 07/04/19 24 07/04/2023 CBC panel - Blood by Autom ated count erythrocyte distribution width [ratio] by automated count 13.2 % low: 11.3%h igh: 14.8% RDW-C V 13.2 11.3 - 14.8 % 07/03 1:51 AM [facility] Not Available Not Available 06/30/2024 10:00:00 07/04/19 24 07/04/2023 CBC panel - Blood by Autom ated count platelets [#/volume] in blood by automated count 153 text: 150 - 420 x10e9/ L Plate let Count 153 150 - 420 x10E9 /L 07/03 1:51 AM [facility] Not Available Not Available 06/30/2024 10:00:00 07/04/19 24 07/04/2023 CBC panel - Blood by Autom ated count platelet mean volume [entitic volume] in blood by automated count 11.2 fL low: 7.8fLh igh: 11.4fL MPV 11.2 7.8 - 11.4 fL 07/03 1:51 AM [facility] Not Available Not Available 06/30/2024 10:00:00 07/04/19 24 07/04/2023 CBC panel - Blood by Autom ated count interpretati on and review of laboratory results Normal Not Available Not Available 06/13 10:00:00 05/24/19 25 05/24/2024 Urina lysis compl ete W Refle x Cultu re panel - Urine reflex status Cultur e not indica roly Refle x Statu s Cultu re not indic ated 05/24 5:28 AM [facility] Not Available Not Available 06/30/2024 09:59:55 05/24/19 25 05/24/2024 Urina lysis compl ete W Refle x Cultu re panel - Urine WBC UA 6-10 text: none seen, 0-5 /hpf abnormal WBC UA 6-10 (A) None Seen, 0-5 /HPF 05/24 5:28 AM [employer] [facility] Not Available Not Available 06/30/2024 09:59:55 05/24/19 25 05/24/2024 Urina lysis compl ete W Refle x Cultu re panel - Urine squamous epithelial cells UA 0-2 text: none seen, 0-2, 3-5 /hpf Squam ous Epith elial Cells UA 0-2 None Seen, 0-2, 3-5 /HPF 05/24 5:28 AM [employer] [facility] [facility] Not Available Not Available 06/30/2024 09:59:55 05/24/1905/24/2024 Urina lysis compl ete W Refle x Cultu re panel - Urine mucus UA 3+ text: /lpf Mucus UA 3+ /LPF 05/24 5:28 AM [employer] [facility] Not Available Not Available 06/30/2024 09:59:55 05/24/19 25 05/24/2024 Urina lysis compl ete W Refle x Cultu re panel - Urine Unknown Analyte Not Available Not Available 06/13 09:59:55 05/24/1905/24/2024 Urina lysis compl ete W Refle x Cultu re panel - Urine interpretati on and review of laboratory results Abnorm al Not Available Not Available 09:59:55 05/24/1905/24/2024 Urina lysis panel - Urine by Auto color UA Yellow text: straw, yellow Color UA Yello w Straw , Yello w 05/24 4:59 AM [employer] [facility] Not Available Not Available 06/30/2024 09:59:55 05/24/1905/24/2024 Urina lysis panel - Urine by Auto clarity UA Clear text: clear Valeri ty UA Clear Clear 05/24 4:59 AM [employer] [facility] Not Available Not Available 06/30/2024 09:59:55 05/24/1905/24/2024 Urina lysis panel - Urine by Auto specific gravity UA 1.038 low: 1.005h igh: 1.03 high Speci fic Gravi ty UA 1.038 (H) 1.005 - 1.030 05/24 4:59 AM [facility] Not Available Not Available 06/30/2024 09:59:55 05/24/1905/24/2024 Urina lysis panel - Urine by Auto pH UA 5 pH low: 5pHhig h: 8pH pH UA 5.0 5.0 - 8.0 pH 05/24 4:59 AM [employer] [facility] [facility] Not Available Not Available 06/30/2024 09:59:55 05/24/1905/24/2024 Urina lysis panel - Urine by Auto protein UA 1+ text: negati ve abnormal Prote in UA 1+ (A) Negat guido 05/24 4:59 AM [facility] Not Available Not Available 06/30/2024 09:59:55 05/24/1905/24/2024 Urina lysis panel - Urine by Auto glucose UA Negati ve text: negati ve Gluco se UA Negat guido Negat guido 05/24 4:59 AM [facility] Not Available Not Available 06/30/2024 09:59:55 05/24/1905/24/2024 Urina lysis panel - Urine by Auto ketone UA 1+ text: negati ve abnormal Keton e UA 1+ (A) Negat guido 05/24 4:59 AM [facility] Not Available Not Available 06/30/2024 09:59:55 05/24/1905/24/2024 Urina lysis panel - Urine by Auto bilirubin UA Negati ve text: negati ve Bilir ubin UA Negat guido Negat guido 05/24 4:59 AM [facility] Not Available Not Available 06/30/2024 09:59:55 05/24/1905/24/2024 Urina lysis panel - Urine by Auto blood UA Negati ve text: negati ve Blood UA Negat guiod Negat guido 05/24 4:59 AM [employer] [facility] Not Available Not Available 06/30/2024 09:59:55 05/24/1905/24/2024 Urina lysis panel - Urine by Auto nitrite UA Negati ve text: negati ve Nitri te UA Negat guido Negat guido 05/24 4:59 AM [employer] [facility] Not Available Not Available 06/30/2024 09:59:55 05/24/19 25 05/24/2024 Urina lysis panel - Urine by Auto leukocyte esterase Negati ve text: negati ve Leuko cyte Ayquelin ase Negat guido Negat guido 05/24 4:59 AM [employer] [facility] Not Available Not Available 06/30/2024 09:59:55 05/24/1905/24/2024 Urina lysis panel - Urine by Auto urobilinogen UA Negati ve text: negati ve mg/dL Urobi linog en UA Negat guido Negat guido mg/dL 05/24 4:59 AM [employer] [facility] Not Available Not Available 06/30/2024 09:59:55 05/24/1905/24/2024 Urina lysis panel - Urine by Auto Unknown Analyte Not Available Not Available 06/13 09:59:55 05/24/1905/24/2024 Urina lysis panel - Urine by Auto interpretati on and review of laboratory results Abnorm al Not Available Not Available 09:59:55 05/24/1905/24/2024 Lipas e [Enzy matic activ ity/v olume ] in Serum or Plasm a lipase [enzymatic activity/vol ume] in serum or plasma 10 U/L low: 8U/Lhi gh: 78U/L Lipas e 10 8 - 78 U/L 05/24 12:11 AM [employer] [facility] Not Available Not Available 06/30/2024 09:59:55 05/24/19 25 05/24/2024 Lipas e [Enzy matic activ ity/v olume ] in Serum or Plasm a Unknown Analyte Lipase result s from the [facility] analyz er may not be compar able with other method ologie s. Lipas e resul ts from the [employer] ty isacc zer may not be radha rable with other metho dolog ies. Not Available Not Available 06/30/2024 09:59:55 05/24/1905/24/2024 Lipas e [Enzy matic activ ity/v olume ] in Serum or Plasm a interpretati on and review of laboratory results Normal Not Available Not Available 06/13 09:59:55 05/24/19 25 05/24/2024 Lacta te [Mole s/vol ume] in Blood lactate [moles/volum e] in serum or plasma 1.5 mmol/ L high: 2mmol/ L Lacti c Acid- Stat 1.5 <=2.0 mmol/ L 05/24 12:07 AM [employer] [facility] Not Available Not Available 06/30/2024 09:59:54 05/24/19 25 05/24/2024 Lacta te [Mole s/vol ume] in Blood interpretati on and review of laboratory results Normal Not Available Not Available 06/13 09:59:54 05/24/19 25 05/24/2024 Compr ehens guido metab olic 1999 panel - Serum or Plasm a urea nitrogen [mass/volume ] in serum or plasma 20 mg/dL low: 7mg/dL high: 26mg/d L BUN 20 7 - 26 mg/dL 05/24 12:11 AM [employer] [facility] Not Available Not Available 06/30/2024 09:59:54 05/24/19 25 05/24/2024 Compr ehens guido metab olic 1999 panel - Serum or Plasm a creatinine [mass/volume ] in serum or plasma 0.75 mg/dL low: 0.56mg /dLhig h: 0.96mg /dL Creat inine 0.75 0.56 - 0.96 mg/dL 05/24 12:11 AM [employer] [facility] Not Available Not Available 06/30/2024 09:59:54 05/24/19 25 05/24/2024 Compr ehens guido metab olic 1999 panel - Serum or Plasm a sodium [moles/volum e] in serum or plasma 140 mmol/ L low: 136mmo l/Lhig h: 145mmo l/L Sodiu m 140 136 - 145 mmol/ L 05/24 12:11 AM [facility] Not Available Not Available 06/30/2024 09:59:54 05/24/1905/24/2024 Compr ehens guido metab olic 1999 panel - Serum or Plasm a potassium [moles/volum e] in serum or plasma 4.1 mmol/ L low: 3.5mmo l/Lhig h: 4.5mmo l/L Potas sium 4.1 3.5 - 4.5 mmol/ L 05/24 12:11 AM [facility] Not Available Not Available 06/30/2024 09:59:54 05/24/19 25 05/24/2024 Compr ehens guido metab olic 1999 panel - Serum or Plasm a chloride [moles/volum e] in serum or plasma 104 mmol/ L low: 98mmol /Lhigh : 107mmo l/L Chlor cheryl 104 98 - 107 mmol/ L 05/24 12:11 AM [facility] Not Available Not Available 06/30/2024 09:59:54 05/24/19 25 05/24/2024 Compr ehens guido metab olic 1999 panel - Serum or Plasm a carbon dioxide, total [moles/volum e] in serum or plasma 23 mmol/ L low: 22mmol /Lhigh : 29mmol /L CO2 23 22 - 29 mmol/ L 05/24 12:11 AM [facility] Not Available Not Available 06/30/2024 09:59:54 05/24/19 25 05/24/2024 Compr ehens guido metab olic 2000 panel - Serum or Plasm a glucose [mass/volume ] in serum or plasma 165 mg/dL low: 70mg/d Lhigh: 99mg/d L high Gluco se 165 (H) 70 - 99 mg/dL 05/24 12:11 AM [facility] Not Available Not Available 06/30/2024 09:59:54 05/24/1905/24/2024 Compr ehens guido metab olic 2000 panel - Serum or Plasm a calcium [moles/volum e] in serum or plasma 10.3 mg/dL low: 8.4mg/ dLhigh : 10.2mg /dL high Calci um 10.3 (H) 8.4 - 10.2 mg/dL 05/24 12:11 AM [facility] Not Available Not Available 06/30/2024 09:59:54 05/24/19 25 05/24/2024 Compr ehens guido metab olic 2000 panel - Serum or Plasm a protein [mass/volume ] in serum or plasma 7.6 g/dL low: 6g/dLh igh: 8.3g/d L Prote in Total 7.6 6.0 - 8.3 g/dL 05/24 12:11 AM [facility] [employer] [facility] Not Available Not Available 06/30/2024 09:59:54 05/24/1905/24/2024 Compr ehens guido metab olic 2000 panel - Serum or Plasm a albumin [mass/volume ] in serum or plasma by bromocresol green (bcg) dye binding method 4.2 g/dL low: 3.4g/d Lhigh: 5g/dL Album in 4.2 3.4 - 5.0 g/dL 05/24 12:11 AM [facility] Not Available Not Available 06/30/2024 09:59:54 05/24/1905/24/2024 Compr ehens guido metab olic 2000 panel - Serum or Plasm a bilirubin.to donna [mass/volume ] in serum or plasma 0.6 mg/dL low: 0.2mg/ dLhigh : 1.2mg/ dL Bilir ubin Total 0.6 0.2 - 1.2 mg/dL 05/24 12:11 AM [facility] Not Available Not Available 06/30/2024 09:59:54 05/24/19 25 05/24/2024 Compr ehens guido metab olic 2000 panel - Serum or Plasm a alkaline phosphatase [enzymatic activity/vol ume] in serum or plasma 75 U/L low: 40U/Lh igh: 150U/L Alkal ine Phosp hatas e 75 40 - 150 U/L 05/24 12:11 AM [employer] [facility] Not Available Not Available 06/30/2024 09:59:54 05/24/19 25 05/24/2024 Compr ehens guido metab olic 2000 panel - Serum or Plasm a alanine aminotransfe rase [enzymatic activity/vol ume] in serum or plasma by no addition of P-5'-P 18 U/L low: 5U/Lhi gh: 55U/L ALT 18 5 - 55 U/L 05/24 12:11 AM [facility] Not Available Not Available 06/30/2024 09:59:54 05/24/19 25 05/24/2024 Compr ehens guido metab olic 2000 panel - Serum or Plasm a aspartate aminotransfe rase [enzymatic activity/vol ume] in serum or plasma 17 U/L low: 5U/Lhi gh: 34U/L AST 17 5 - 34 U/L 05/24 12:11 AM [facility] Not Available Not Available 06/30/2024 09:59:54 05/24/19 25 05/24/2024 Compr ehens guido metab olic 2000 panel - Serum or Plasm a anion gap 13 low: 6high: 16 Anion Gap 13 6 - 16 05/24 12:11 AM [facility] Not Available Not Available 06/30/2024 09:59:54 05/24/19 25 05/24/2024 Compr ehens guido metab olic 2000 panel - Serum or Plasm a urea nitrogen/cre atinine [mass ratio] in serum or plasma 27 low: 7high: 23 high BUN/C reati nine Ratio 27 (H) 7 - 23 05/24 12:11 AM [facility] Not Available Not Available 06/30/2024 09:59:54 05/24/19 25 05/24/2024 Compr ehens guido metab olic 2000 panel - Serum or Plasm a osmolality calculated 296 text: 275 - 295 mOsm/k g high Osmol ality Calcu lated 296 (H) 275 - 295 mOsm/ kg 05/24 12:11 AM [facility] Not Available Not Available 06/30/2024 09:59:54 05/24/1905/24/2024 Compr ehens guido metab olic 2000 panel - Serum or Plasm a albumin/glob ulin ratio 1.2 low: 1.1hig h: 2.3 Album in/Gl obuli n Ratio 1.2 1.1 - 2.3 05/24 12:11 AM [facility] [employer] [facility] Not Available Not Available 06/30/2024 09:59:54 05/24/1905/24/2024 Compr ehens guido metab olic 2000 panel - Serum or Plasm a glomerular filtration rate/1.73 sq M.predicted [volume rate/area] in serum, plasma or blood by creatinine-b ased formula (CKD-epi 2020) 85 text: >=90 mL/min /1.73 m2 low eGFR by CKD-E PI 85 (L) >=90 mL/mi n/1.7 3 m2 05/24 12:11 AM [facility] [employer] [facility] Not Available Not Available 06/30/2024 09:59:54 05/24/1905/24/2024 Compr ehens guido metab olic 2000 panel - Serum or Plasm a interpretati on and review of laboratory results Abnorm al Not Available Not Available 09:59:54 05/24/1905/24/2024 CBC W Auto Diffe renti al panel - Blood leukocytes [#/volume] in blood by automated count 13.5 text: 4.0 - 10.7 x10e9/ L high WBC 13.5 (H) 4.0 - 10.7 x10E9 /L 05/23 11:45 PM [employer] [facility] Not Available Not Available 06/30/2024 09:59:54 05/24/19 25 05/24/2024 CBC W Auto Diffe renti al panel - Blood erythrocytes [#/volume] in blood by automated count 5.2 text: 3.90 - 5.20 x10e12 /L RBC Count 5.20 3.90 - 5.20 x10E1 2/L 05/23 11:45 PM [facility] Not Available Not Available 06/30/2024 09:59:54 05/24/1905/24/2024 CBC W Auto Diffe annemarieti al panel - Blood hemoglobin [mass/volume ] in blood 16.1 g/dL low: 11.9g/ dLhigh : 15.8g/ dL high Hemog lobin 16.1 (H) 11.9 - 15.8 g/dL 05/23 11:45 PM [facility] Not Available Not Available 06/30/2024 09:59:54 05/24/1905/24/2024 CBC W Auto Diffe coby al panel - Blood hematocrit [volume fraction] of blood by automated count 47.5 % low: 34.8%h igh: 46.1% high Hemat ocrit 47.5 (H) 34.8 - 46.1 % 05/23 11:45 PM [facility] Not Available Not Available 06/30/2024 09:59:54 05/24/1905/24/2024 CBC W Auto Diffe coby al panel - Blood MCV [entitic volume] by automated count 91.3 fL low: 80fLhi gh: 98fL MCV 91.3 80.0 - 98.0 fL 05/23 11:45 PM [facility] Not Available Not Available 06/30/2024 09:59:54 05/24/1905/24/2024 CBC W Auto Diffe annemarieti al panel - Blood MCH [entitic mass] by automated count 31 pg low: 26.7pg high: 33.6pg MCH 31.0 26.7 - 33.6 pg 05/23 11:45 PM [facility] Not Available Not Available 06/30/2024 09:59:54 05/24/19 25 05/24/2024 CBC W Auto Diffe coby al panel - Blood MCHC [mass/volume ] by automated count 33.9 g/dL low: 31.7g/ dLhigh : 36.3g/ dL MCHC 33.9 31.7 - 36.3 g/dL 05/23 11:45 PM [facility] Not Available Not Available 06/30/2024 09:59:54 05/24/1905/24/2024 CBC W Auto Diffe renti al panel - Blood erythrocyte distribution width [ratio] by automated count 12.6 % low: 11.3%h igh: 14.8% RDW-C V 12.6 11.3 - 14.8 % 05/23 11:45 PM [facility] Not Available Not Available 06/30/2024 09:59:54 05/24/1905/24/2024 CBC W Auto Diffe renti al panel - Blood platelets [#/volume] in blood by automated count 236 text: 150 - 420 x10e9/ L Plate let Count 236 150 - 420 x10E9 /L 05/23 11:45 PM [facility] Not Available Not Available 06/30/2024 09:59:54 05/24/1905/24/2024 CBC W Auto Diffe renti al panel - Blood platelet mean volume [entitic volume] in blood by automated count 11.3 fL low: 7.8fLh igh: 11.4fL MPV 11.3 7.8 - 11.4 fL 05/23 11:45 PM [facility] Not Available Not Available 06/30/2024 09:59:54 05/24/1905/24/2024 CBC W Auto Diffe renti al panel - Blood neutrophils/ 100 leukocytes in blood by automated count 94.2 % low: 41%hig h: 74% high Neutr ophil % 94.2 (H) 41.0 - 74.0 % 05/23 11:45 PM [facility] Not Available Not Available 06/30/2024 09:59:54 05/24/19 25 05/24/2024 CBC W Auto Diffe renti al panel - Blood lymphocytes/ 100 leukocytes in blood by automated count 2.2 % low: 17%hig h: 47% low Lymph ocyte % 2.2 (L) 17.0 - 47.0 % 02/08 /2025 11:45 PM [employer] [facility] Not Available Not Available 06/30/2024 09:59:54 05/24/1905/24/2024 CBC W Auto Diffe renti al panel - Blood monocytes/10 0 leukocytes in blood by automated count 3.2 % low: 3%high : 11% Monoc yte % 3.2 3.0 - 11.0 % 05/23 11:45 PM [employer] [facility] Not Available Not Available 06/30/2024 09:59:54 05/24/19 25 05/24/2024 CBC W Auto Diffe renti al panel - Blood eosinophils/ 100 leukocytes in blood by automated count 0 % low: 0%high : 7% Eosin ophil % 0.0 0.0 - 7.0 % 05/23 11:45 PM [employer] [facility] Not Available Not Available 06/30/2024 09:59:54 05/24/1905/24/2024 CBC W Auto Diffe renti al panel - Blood basophils/10 0 leukocytes in blood by automated count 0.1 % low: 0%high : 1.6% Basop hil % 0.1 0.0 - 1.6 % 05/23 11:45 PM [employer] [facility] Not Available Not Available 06/30/2024 09:59:54 05/24/1905/24/2024 CBC W Auto Diffe renti al panel - Blood immature granulocytes /100 leukocytes in blood by automated count 0.3 % low: 0%high : 1% Immat ure Granu locyt es % 0.3 0.0 - 1.0 % 05/23 11:45 PM [employer] [facility] Not Available Not Available 06/30/2024 09:59:54 05/24/1905/24/2024 CBC W Auto Diffe renti al panel - Blood neutrophils [#/volume] in blood by automated count 12.68 text: 1.60 - 7.50 x10e9/ L high Neutr ophil Absol [place] 12.68 (H) 1.60 - 7.50 x10E9 /L 05/23 11:45 PM [employer] [facility] Not Available Not Available 06/30/2024 09:59:54 05/24/1905/24/2024 CBC W Auto Diffe renti al panel - Blood lymphocytes [#/volume] in blood by automated count 0.3 text: 1.00 - 4.40 x10e9/ L low Lymph ocyte Absol [place] 0.30 (L) 1.00 - 4.40 x10E9 /L 05/23 11:45 PM [employer] [facility] Not Available Not Available 06/30/2024 09:59:54 05/24/1905/24/2024 CBC W Auto Diffe renti al panel - Blood monocytes [#/volume] in blood by automated count 0.43 text: 0.15 - 1.00 x10e9/ L Monoc yte Absol [place] 0.43 0.15 - 1.00 x10E9 /L 05/23 11:45 PM [facility] Not Available Not Available 06/30/2024 09:59:54 05/24/1905/24/2024 CBC W Auto Diffe renti al panel - Blood eosinophils [#/volume] in blood 0 text: 0.00 - 0.60 x10e9/ L Eosin ophil Absol [place] 0.00 0.00 - 0.60 x10E9 /L 05/23 11:45 PM [facility] Not Available Not Available 06/30/2024 09:59:54 05/24/1905/24/2024 CBC W Auto Diffe renti al panel - Blood basophils [#/volume] in blood by automated count 0.02 text: 0.00 - 0.13 x10e9/ L Basop hil Absol [place] 0.02 0.00 - 0.13 x10E9 /L 05/23 11:45 PM [facility] Not Available Not Available 06/30/2024 09:59:54 05/24/19 25 05/24/2024 CBC W Auto Diffe renti al panel - Blood interpretati on and review of laboratory results Abnorm al Not Available Not Available 09:59:54 05/25/19 25 05/25/2024 Phosp hate [Mass /volu me] in Serum or Plasm a phosphate [mass/volume ] in serum or plasma 3.2 mg/dL low: 2.9mg/ dLhigh : 5.1mg/ dL Phosp horus 3.2 2.9 - 5.1 mg/dL 05/25 8:02 AM [facility] Not Available Not Available 06/30/2024 09:59:55 05/25/19 25 05/25/2024 Phosp hate [Mass /volu me] in Serum or Plasm a interpretati on and review of laboratory results Normal Not Available Not Available 06/13 09:59:55 05/25/1905/25/2024 Magne sium [Mass /volu me] in Serum or Plasm a magnesium [mass/volume ] in serum or plasma 1.6 mg/dL low: 1.6mg/ dLhigh : 2.6mg/ dL Magne sium 1.6 1.6 - 2.6 mg/dL 05/25 8:02 AM [facility] Not Available Not Available 06/30/2024 09:59:55 05/25/1905/25/2024 Magne sium [Mass /volu me] in Serum or Plasm a interpretati on and review of laboratory results Normal Not Available Not Available 06/13 09:59:55 05/25/19 25 05/25/2024 CBC panel - Blood by Autom ated count leukocytes [#/volume] in blood by automated count 4.2 text: 4.0 - 10.7 x10e9/ L WBC 4.2 4.0 - 10.7 x10E9 /L 05/25 2:36 AM [facility] Not Available Not Available 06/30/2024 09:59:55 05/25/19 25 05/25/2024 CBC panel - Blood by Autom ated count erythrocytes [#/volume] in blood by automated count 4.05 text: 3.90 - 5.20 x10e12 /L RBC Count 4.05 3.90 - 5.20 x10E1 2/L 05/25 2:36 AM [facility] Not Available Not Available 06/30/2024 09:59:55 05/25/1905/25/2024 CBC panel - Blood by Autom ated count hemoglobin [mass/volume ] in blood 12.6 g/dL low: 11.9g/ dLhigh : 15.8g/ dL Hemog lobin 12.6 11.9 - 15.8 g/dL 05/25 2:36 AM [facility] Not Available Not Available 06/30/2024 09:59:55 05/25/1905/25/2024 CBC panel - Blood by Autom ated count hematocrit [volume fraction] of blood by automated count 38.1 % low: 34.8%h igh: 46.1% Hemat ocrit 38.1 34.8 - 46.1 % 05/25 2:36 AM [facility] Not Available Not Available 06/30/2024 09:59:55 05/25/1905/25/2024 CBC panel - Blood by Autom ated count MCV [entitic volume] by automated count 94.1 fL low: 80fLhi gh: 98fL MCV 94.1 80.0 - 98.0 fL 05/25 2:36 AM [facility] Not Available Not Available 06/30/2024 09:59:55 05/25/1905/25/2024 CBC panel - Blood by Autom ated count MCH [entitic mass] by automated count 31.1 pg low: 26.7pg high: 33.6pg MCH 31.1 26.7 - 33.6 pg 05/25 2:36 AM [facility] Not Available Not Available 06/30/2024 09:59:55 05/25/1905/25/2024 CBC panel - Blood by Autom ated count MCHC [mass/volume ] by automated count 33.1 g/dL low: 31.7g/ dLhigh : 36.3g/ dL MCHC 33.1 31.7 - 36.3 g/dL 05/25 2:36 AM [facility] Not Available Not Available 06/30/2024 09:59:55 05/25/1905/25/2024 CBC panel - Blood by Autom ated count erythrocyte distribution width [ratio] by automated count 12.8 % low: 11.3%h igh: 14.8% RDW-C V 12.8 11.3 - 14.8 % 05/25 2:36 AM [facility] Not Available Not Available 06/30/2024 09:59:55 05/25/1905/25/2024 CBC panel - Blood by Autom ated count platelets [#/volume] in blood by automated count 175 text: 150 - 420 x10e9/ L Plate let Count 175 150 - 420 x10E9 /L 05/25 2:36 AM [facility] Not Available Not Available 06/30/2024 09:59:55 05/25/1905/25/2024 CBC panel - Blood by Autom ated count platelet mean volume [entitic volume] in blood by automated count 11.2 fL low: 7.8fLh igh: 11.4fL MPV 11.2 7.8 - 11.4 fL 05/25 2:36 AM [facility] Not Available Not Available 06/30/2024 09:59:55 05/25/1905/25/2024 CBC panel - Blood by Autom ated count interpretati on and review of laboratory results Normal Not Available Not Available 06/13 09:59:55 05/25/1905/25/2024 Basic metab olic 2000 panel - Serum or Plasm a urea nitrogen [mass/volume ] in serum or plasma 11 mg/dL low: 7mg/dL high: 26mg/d L BUN 11 7 - 26 mg/dL 05/25 2:54 AM [facility] Not Available Not Available 06/30/2024 09:59:55 05/25/1905/25/2024 Basic metab olic 2000 panel - Serum or Plasm a creatinine [mass/volume ] in serum or plasma 0.73 mg/dL low: 0.56mg /dLhig h: 0.96mg /dL Creat inine 0.73 0.56 - 0.96 mg/dL 05/25 2:54 AM [facility] Not Available Not Available 06/30/2024 09:59:55 05/25/1905/25/2024 Basic metab olic 1999 panel - Serum or Plasm a sodium [moles/volum e] in serum or plasma 139 mmol/ L low: 136mmo l/Lhig h: 145mmo l/L Sodiu m 139 136 - 145 mmol/ L 05/25 2:54 AM [facility] Not Available Not Available 06/30/2024 09:59:55 05/25/1905/25/2024 Basic metab olic 1999 panel - Serum or Plasm a potassium [moles/volum e] in serum or plasma 3.9 mmol/ L low: 3.5mmo l/Lhig h: 4.5mmo l/L Potas sium 3.9 3.5 - 4.5 mmol/ L 05/25 2:54 AM [facility] Not Available Not Available 06/30/2024 09:59:55 05/25/1905/25/2024 Basic metab olic 1999 panel - Serum or Plasm a chloride [moles/volum e] in serum or plasma 106 mmol/ L low: 98mmol /Lhigh : 107mmo l/L Chlor cheryl 106 98 - 107 mmol/ L 05/25 2:54 AM [facility] Not Available Not Available 06/30/2024 09:59:55 05/25/1905/25/2024 Basic metab olic 1999 panel - Serum or Plasm a carbon dioxide, total [moles/volum e] in serum or plasma 25 mmol/ L low: 22mmol /Lhigh : 29mmol /L CO2 25 22 - 29 mmol/ L 05/25 2:54 AM [facility] Not Available Not Available 06/30/2024 09:59:55 05/25/19 25 05/25/2024 Basic metab olic 1999 panel - Serum or Plasm a glucose [mass/volume ] in serum or plasma 110 mg/dL low: 70mg/d Lhigh: 99mg/d L high Gluco se 110 (H) 70 - 99 mg/dL 05/25 2:54 AM [facility] [employer] [facility] Not Available Not Available 06/30/2024 09:59:55 05/25/19 25 05/25/2024 Basic metab olic 2000 panel - Serum or Plasm a calcium [moles/volum e] in serum or plasma 8.8 mg/dL low: 8.4mg/ dLhigh : 10.2mg /dL Calci um 8.8 8.4 - 10.2 mg/dL 05/25 2:54 AM [employer] [facility] [employer] [facility] Not Available Not Available 06/30/2024 09:59:55 05/25/1905/25/2024 Basic metab olic 1999 panel - Serum or Plasm a anion gap 8 low: 6high: 16 Anion Gap 8 6 - 16 05/25 2:54 AM [facility] Not Available Not Available 06/30/2024 09:59:55 05/25/19 25 05/25/2024 Basic metab olic 2000 panel - Serum or Plasm a urea nitrogen/cre atinine [mass ratio] in serum or plasma 15 low: 7high: 23 BUN/C reati nine Ratio 15 7 - 23 05/25 2:54 AM [facility] [employer] [facility] Not Available Not Available 06/30/2024 09:59:55 05/25/19 25 05/25/2024 Basic metab olic 2000 panel - Serum or Plasm a osmolality calculated 288 text: 275 - 295 mOsm/k g Osmol ality Calcu lated 288 275 - 295 mOsm/ kg 05/25 2:54 AM [employer] [facility] [employer] [facility] Not Available Not Available 06/30/2024 09:59:55 05/25/19 25 05/25/2024 Basic metab olic 2000 panel - Serum or Plasm a glomerular filtration rate/1.73 sq M.predicted [volume rate/area] in serum, plasma or blood by creatinine-b ased formula (CKD-epi 2020) 88 text: >=90 mL/min /1.73 m2 low eGFR by CKD-E PI 88 (L) >=90 mL/mi n/1.7 3 m2 05/25 2:54 AM [employer] [facility] Not Available Not Available 06/30/2024 09:59:55 05/25/1905/25/2024 Basic metab olic 2000 panel - Serum or Plasm a interpretati on and review of laboratory results Abnorm al Not Available Not Available 09:59:55 07/01/19 25 07/01/2024 HCV ANTIB ANNIE RFX TO QUANT PCR HCV Ab REACTI VE nonrea ctive abnormal Not Available [facility] [address] [facility], [place], [address], 07/06/2024 16:11:42 07/01/1907/01/2024 HSV-2 AB, IGG hsv 2 IgG, type spec REACTI VE nonrea ctive abnormal Ple ase note refer ence inter mahesh zamora e Curre nt guide lines and recom menda tions do not recom mend routi ne scree nina for HSV-2 in asymp tomat ic indiv idual s, inclu ding those that are pregn ant. The detec tion of HSV-2 IgG antib odies in a singl e sampl e indic ates previ ous expos ure to HSV-2 but does not give infor matio n as to the site of HSV infec tion or the timin g of expos ure. The predi ctive value of posit guido and negat guido resul ts depen ds on the popul ation 's preva lence and the prete st likel ihood of HSV-2 . HSV-2 IgG testi ng perfo rmed using the [employer] HSV-2 IgG assay . Not Available [facility] [address] [facility], [place], [address], 07/06/2024 16:11:43 07/01/19 25 07/01/2024 NUSWA B BV AND CRYSTAL DA, GLORIA atopobium vaginae LOW - 0 score Not Available [facility] [address] [facility], [place], [address], 07/06/2024 16:11:45 07/01/19 25 07/01/2024 NUSWA B BV AND CRYSTAL DA, GLORIA bvab 2 LOW - 0 score Not Available [facility] [address] [place], [address], 07/06/2024 16:11:45 07/01/19 25 07/01/2024 NUSWA B BV AND CRYSTAL DA, GLORIA megasphaera 1 LOW - 0 score Calcu late total score by blade g the 3 indiv idual bacte rial vagin osis (BV) marke r score s toget her. Total score is inter prete d as follo ws: Total score 0-1: Indic ates the absen ce of BV. Total score 2: Indet ermin ate for BV. Addit ional clini kaz data shoul d be evalu ated to estab oneil a diagn osis. Total score 3-6: Indic ates the prese nce of BV. Not Available [facility] [address] [place], [address], 07/06/2024 16:11:45 07/01/19 25 07/01/2024 NUSWA B BV AND CRYSTAL DA, GLORIA selin albicans, GLORIA NEGATI VE negati ve Not Available [facility] [address] [place], [address], 07/06/2024 16:11:45 07/01/19 25 07/01/2024 NUSWA B BV AND CRYSTAL DA, GLORIA selin glabrata, GLORIA NEGATI VE negati ve Not Available [facility] [address] [place], [address], 07/06/2024 16:11:45 07/01/19 25 07/02/2024 CT/GC /TV GLORIA+M GENIT ALIUM SWAB trich vag by GLORIA NEGATI VE negati ve Not Available [facility] [address] [place], [address], 07/06/2024 16:11:46 07/01/19 25 07/02/2024 CT/GC /TV GLORIA+M GENIT ALIUM SWAB chlamydia trachomatis, GLORIA NEGATI VE negati ve Not Available [facility] [address] [facility], [place], [address], 07/06/2024 16:11:46 07/01/19 25 07/02/2024 CT/GC /TV GLORIA+M GENIT ALIUM SWAB neisseria gonorrhoeae, GLORIA NEGATI VE negati ve Not Available [facility] [address] [facility], [place], [address], 07/06/2024 16:11:46 07/01/19 25 07/06/2024 CT/GC /TV GLORIA+M GENIT ALIUM SWAB mycoplasma genitalium GLORIA NEGATI VE negati ve Not Available [facility] [address] [facility], [place], [address], 07/06/2024 16:11:46 07/01/19 25 07/01/2024 HCV RT-PC R, QUANT (NON- GRAPH ) test information: Commen t The quant itati ve range of this assay is 15 IU/mL to 100 tia on IU/mL . Not Available [facility] [address] [facility], [place], [address], 07/06/2024 16:11:48 07/01/19 25 07/02/2024 HCV RT-PC R, QUANT (NON- GRAPH ) hepatitis C quantitation HCV Not Detect ed Not Available [facility] [address] [place], [address], 07/06/2024 16:11:48 07/01/19 25 07/02/2024 HCV RT-PC R, QUANT (NON- GRAPH ) interpretati on: Commen t Posit guido HCV antib annie scree n witho ut the prese nce of HCV RNA is consi stent with a resol ari past infec tion or a false posit guido HCV antib annie. Consi ambar repea t testi ng after one month . Not Available [facility] [address] [facility], [place], [address], 07/06/2024 16:11:48 07/01/19 25 07/01/2024 HBSAG SCREE N HBsAg screen NEGATI VE negati ve Not Available [facility] [address] [facility], [place], [address], 07/06/2024 16:11:49 07/01/19 25 07/01/2024 RPR, RFX QN RPR/C ONFIR M TP RPR NON REACTI VE nonrea ctive Not Available [facility] [address] [facility], [place], [address], 07/06/2024 16:11:50 07/01/19 25 07/01/2024 HIV AB/P2 4 AG WITH REFLE X HIV Ab/P24 Ag screen NON REACTI VE nonrea ctive HIV-1 /HIV- 2 antib odies and HIV-1 p24 antig en were NOT detec roly. There is no labor atory evide nce of HIV infec tion. HIV Negat guido Not Available [facility] [address] [place], [address], 07/06/2024 16:11:51 Result Notes None recorded. Problems Name Problem SNOMED Code Status Onset Date Resolution Date Notes Provider Name and Address Organization Details Recorded Time Hepatiti s C antibody detected 801253846 Active 2017 undetecte d viral load Pau Mata MD Attn: Mary Grace mistry,[address] [place], [address], [facility] 8 11:03:40 Generali zed osteoart hritis 443066518 Active 2017 Pau Mata MD Attn: Mary Grace mistry,[address] [place], [address], [place] - [facility] 8 11:13:13 Asthma 132770889 Active 2020 Pau Mata MD Attn: Mary Grace fidelia,[address] [facility], [place], [address], [place] [facility] 1 09:03:16 Essentia l hyperten riaz 39512787 Active Perlita Long null, [place] - [facility] 8 10:57:15 Umbilica l hernia 016443810 Active s/p sx on 06/29 Perlita Long null[place] [facility] 8 10:57:15 Low back pain 685396036 Active MRI 06/28 -moderate lumbar spondylos is-sees ortho Perlita Long null[place] [facility] 8 10:57:15 Obesity 491097123 Active s/p sleep study per GI Pau Mata MD Attn: Mary Grace fidelia,[address] [facility], [place], [address], [place] [facility] 1 09:01:02 Irritabi lity of urinary bladder 117032759 Active Perlita Long null, [place] [facility] 8 10:57:15 Gastroes ophageal reflux disease without esophagi tis 382065981 Active s/p EGD 01/31-hia donna hernia Pau Mata MD Attn: Mary Grace mistry,[address] [facility], [place], [address], [place] - [facility] 1 09:01:14 Varicose veins of lower extremit y 77811177 Active 2016 s/p sx Perlita Long [place] [facility] 8 10:57:15 Knee pain Active 2016 sees ortho Perlita Long [place] [facility] 8 10:57:15 Viral hepatiti s C 09166878 Completed 201610/28/2017 Pau Mata MD Attn: Mary Grace mistry,[address] [facility], [place], [address], [facility] 8 11:03:31 Problem Notes None recorded. Procedures Surgical History Date Name Laterality Status Provider Name and Address Organization Details Recorded Time 06/05/19 25 Carpal tunnel surgery completed Justina Plaza [facility] 06/30/2024 10:14:52 08/23/19 21 Most Recent Mammogram completed Carissa Felix RN [facility] 08/23/2020 11:54:57 02/19/20 19 Colonoscopy with biopsy completed Pau Mata MD Attn: Accounting,[address] [facility], [place], [address], [facility] 03/02/2019 10:40:28 02/04/20 19 Egd biopsy single/multiple completed Chata Witt Demetrius [facility] 02/13/2019 14:00:39 04/10/20 18 Date of Last Mammogram completed Nehal Stewart MA [facility] 04/28/2019 08:48:04 06/26/19 17 Hernia Repair completed JEB Roy [facility] 07/13/2016 12:25:45 04/15/18 94 Total hysterectomy completed Perlita Long [facility] 11/26/2016 10:03:06 Back Surgery completed Justina Plaza [facility] 06/30/2024 10:15:12 Dilation and Curettage completed Siobhan Marques MA [facility] 05/09/2015 14:56:32 Breast Surgery completed Siobhan Marques MA [facility] 05/09/2015 14:56:32 Tonsillectomy completed Ally Ribeiro [facility] 06/06/2015 10:11:39 Imaging Results None recorded. Procedure Notes None recorded. Medical Equipment None Reported. Allergies Allergen ID Allergen Name Allergen Category Reaction Reaction Severity Criticality Documentation Date Start Date Code Code System Note Provider Name and Address Organization Details Recorded Time 45903 grass pollen environme nt,medica tion Not available Not available Not available 05/09/2015 97344 UNK NEGRITA Castillo, [facility] 6 14:56:32 89513 Canis lupus familiari s extract environme nt Not available Not available Not available 05/09/2015 69616 4 RxNorm Siobhan NEGRITA Marques null, [place] - [facility] 6 14:56:32 43820 cat dander environme nt Not available Not available Not available 05/09/2015 50803 UNK Siobhan NEGRITA Marques null, [place] [facility] 6 14:56:32 Medications Name Sig Start Date Stop Date Status Note LastModified by Organization Details LastModified Time cyclobenza vashti 10 mg tablet TAKE 1 TABLET BY MOUTH TWICE A DAY active Not Available Not Available No t Available amoxicilli n 500 mg capsule 05/12 completed Not Available Not Available Not Available prednisone 10 mg tablet TAKE 2 TABLETS BY MOUTH DAILY FOR 5 DAYS THEN 1 TABLET DAILY FOR 5 DAYS THEN 1 TABLET EVERY OTHER DAY UNTIL FINISHED 12/16 completed Not Available Not Available Not Available lisinopril 20 mg-hydroch lorothiazi de 12.5 mg tablet TAKE 1 TABLET BY MOUTH ONCE DAILY active Not Available Not Available No t Available azithromyc in 250 mg tablet TAKE 2 TABLETS (500 MG) BY ORAL ROUTE ONCE DAILY FOR 1 DAY THEN 1 TABLET (250 MG) BY ORAL ROUTE ONCE DAILY FOR 4 DAYS 07/13 completed Not Available Not Available Not Available fluconazol e 150 mg tablet TAKE ONE TABLET BY MOUTH ON DAY 3 OF ANTIBIOT IC AND ONE TABLET BY MOUTH THREE DAYS LATER 06/30 completed Not Available Not Available Not Available hydrocodon e 5 mg-acetami nophen 325 mg tablet active Not Available Not Available No t Available meloxicam 15 mg tablet TAKE 1 TABLET BY MOUTH EVERY DAY active Not Available Not Available No t Available phenazopyr idine 200 mg tablet TAKE 1 TABLET BY MOUTH 3 TIMES A DAY NEEDED FOR PAIN active Not Available Not Available No t Available lisinopril 20 mg tablet TAKE 1 TABLET BY MOUTH EVERY DAY active Not Available Not Available No t Available penicillin V potassium 500 mg tablet active Not Available Not Available Not Available potassium chloride ER 10 mEq tablet,ext ended release Take 1 tablet every day by oral route. 07/30 completed Not Available Not Available Not Available acetaminop hen 300 mg-codeine 30 mg tablet TAKE 1 TABLET BY MOUTH EVERY 6 HOURS NEEDED FOR DENTAL PAIN 08/24 completed not taking Not Available Not Available Not Available prochlorpe razine maleate 10 mg tablet 03/18 completed Not Available Not Available Not Available ciprofloxa jose antonio 500 mg tablet TAKE 1 TABLET BY MOUTH EVERY 12 HOURS 06/30 completed Not Available Not Available Not Available sulfametho xazole 800 mg-trimeth oprim 160 mg tablet TAKE 1 TABLET BY MOUTH TWICE A DAY 06/30 completed Not Available Not Available Not Available omeprazole 40 mg capsule,de layed release TAKE 1 CAPSULE BY MOUTH EVERY DAY active Not Available Not Available No t Available tramadol 50 mg tablet Take 1 tablet twice a day by oral route as needed. 01/29 completed Not Available Not Available Not Available triamcinol one acetonide 0.1 % topical cream APPLY A THIN LAYER TO THE AFFECTED AREA(S) BY TOPICAL ROUTE 2 TIMES PER DAY active Not Available Not Available No t Available famotidine 20 mg tablet TAKE 1 TABLET BY MOUTH TWICE A DAY active Not Available Not Available No t Available phenazopyr idine 100 mg tablet TAKE 1 TABLET BY MOUTH 3 TIMES A DAY active Not Available Not Available No t Available erythromyc in 5 mg/gram (0.5 %) eye ointment APPLY A 1CM RIBBON INTO THE LOWER CONJUNCT IVAL SAC(S) IN THE AFFECTED EYE(S) THREE TIMES PER DAY. 06/30 completed Not Available Not Available Not Available nystatin 100,000 unit/gram topical cream APPLY TO THE AFFECTED AREA(S) BY TOPICAL ROUTE 2 TIMES PER DAY 03/27 completed Not Available Not Available Not Available ranitidine 150 mg tablet Take 1 tablet twice a day by oral route. 05/14 completed Not Available Not Available Not Available lisinopril 10 mg tablet Take 1 tablet every day by oral route for 30 days. active Not Available Not Available No t Available Advair Diskus 250 mcg-50 mcg/dose powder for inhalation TAKE 1 PUFF BY MOUTH TWICE A DAY active Not Available Not Available No t Available nystatin-t riamcinolo ne 100,000 unit/g-0.1 % topical cream APPLY TO THE AFFECTED AREA(S) BY TOPICAL ROUTE 2 TIMES PER DAY IN THEMORNI NG AND EVENING 2020 active Not Available Not Available Not Avai lable lisinopril 30 mg tablet TAKE 1 TABLET BY MOUTH DAILY. 11/17 completed Not Available Not Available Not Available gabapentin 300 mg capsule TAKE 1 CAPSULE BY MOUTH EVERY DAY active Not Available Not Available No t Available diclofenac sodium 75 mg tablet,del ayed release Take 1 tablet twice a day by oral route for 30 days. active Not Available Not Available No t Available montelukas t 10 mg tablet TAKE 1 TABLET BY MOUTH EVERY DAY active Not Available Not Available No t Available mupirocin 2 % topical ointment 1 APPLICAT ION TOPICALL Y TWICE A DAY active Not Available Not Available No t Available furosemide 20 mg tablet Take 1 tablet every day by oral route for 5 days. 07/30 completed Not Available Not Available Not Available estradiol 0.5 mg tablet TAKE 1 TABLET BY MOUTH ONCE DAILY 08/09 completed Not Available Not Available Not Available fluticason e 100 mcg-salmet quang 50 mcg/dose blistr powdr for inhalation TAKE 1 PUFF BY MOUTH TWICE A DAY active Not Available Not Available No t Available estradiol 0.01% (0.1 mg/gram) vaginal cream INSERT 1 GRAM VAGINALL Y TWICE A WEEK EVERY DAY AT BEDTIME active Not Available Not Available No t Available albuterol sulfate HFA 90 mcg/actuat ion aerosol inhaler INHALE 1 PUFF EVERY 4-6 HOURS NEEDED active Not Available Not Available No t Available oxybutynin chloride 5 mg tablet TAKE 1 TABLET BY MOUTH TWICE A DAY active Not Available Not Available No t Available amoxicilli n 875 mg-potassi um clavulanat e 125 mg tablet TAKE 1 TABLET BY MOUTH EVERY 12 HOURS 06/30 completed Not Available Not Available Not Available azithromyc in 500 mg tablet TAKE 1 TABLET BY MOUTH EVERY DAY FOR 3 DAYS active Not Available Not Available No t Available cyclobenza vashti 5 mg tablet TAKE 1 TABLET BY MOUTH THREE TIMES A DAY NEEDED FOR MUSCLE SPASM active Not Available Not Available No t Available nitrofuran toin monohydrat e/macrocry stals 100 mg capsule TAKE 1 CAPSULE BY MOUTH EVERY 12 HOURS FOR 5 DAYS 06/30 completed Not Available Not Available Not Available chlorhexid ine gluconate 0.12 % mouthwash SWISH 15 MLS IN MOUTH 3 TIMES DAILY AFTER MEALS FOR 30 SECONDS THEN SPIT OUT 08/24 completed Not Available Not Available Not Available Prolensa 0.07 % eye drops 08/30 completed Not Available Not Available Not Available Fluzone High-Dose Quad 2020-21 (PF) 240 mcg/0.7 mL IM syringe 03/03 completed Not Available Not Available Not Available Vitals Date Recorded Body height Body mass index (BMI) Body weight Heart rate Respiratory rate Body temperature Oxygen saturation Oxygen saturation in Arterial blood by Pulse oximetry Provider Name and Address Organization Details Last Updated DateTime 2 162.56 cm 30.4 kg/m2 61981.8 5 g 101 /min 16 /min 97.2 [degF] 97 % 97 % Landy Gilbert MA [facility] 2 08:48:19 Date Recorded Systolic blood pressure Diastolic blood pressure Provider Name and Address Organization Details Last Updated DateTime 04/19/2021 140 mm[Hg] 90 mm[Hg] Pau Mata MD Attn: Accounting,[address] [place], [address], [facility] 04/19/2021 08:58:13 Date Recorded Body height Body mass index (BMI) Body weight Heart rate Respiratory rate Body temperature Oxygen saturation Oxygen saturation in Arterial blood by Pulse oximetry Systolic blood pressure Diastolic blood pressure Provider Name and Address Organization Details Last Updated DateTime 2 162.56 cm 31.1 kg/m2 76834.8 6 g 87 /min 14 /min 97.2 [degF] 98 % 98 % 124 mm[Hg] 84 mm[Hg] Perlita Long MA [facility] 2 15:17:06 Date Recorded Body height Body mass index (BMI) Body weight Heart rate Systolic blood pressure Diastolic blood pressure Provider Name and Address Organization Details Last Updated DateTime 5 162.56 cm 26.9 kg/m2 06897 g 70 /min 130 mm[Hg] 82 mm[Hg] Justina Plaza [facility] 5 10:18:27 Social History Question Answer Notes LastModified by Organizat ion Details LastModified Time Tobacco Smoking Status Never Smoker Siobhan Marques MA null, [facility] 05/09/2015 14:56:32 Do You Have An Advance Directive? No Information not available 08/31/2019 What Is Your Level Of Alcohol Consumption? Occasional Beer/wine [email or web address] Information not available 05/09/2015 Are You Blind Or Do You Have Difficulty Seeing? No [email or web address] Information not available 08/24/2020 What Is Your Level Of Caffeine Consumption? Heavy Information not available 01/30/2016 How Much Tobacco Do You Chew? None Information not available 01/30/2016 In The 14 Days Before Symptom Onset, Have You Had Close Contact With A Laboratory-confi rmed COVID-19 While That Case Was Ill? No Information not available 08/31/2019 In The 14 Days Before Symptom Onset, Have You Had Close Contact With A Person Who Is Under Investigation For COVID-19 While That Person Was Ill? No Information not available 08/31/2019 Have You Been To An Area Known To Be High Risk For COVID-19? No Information not available 08/31/2019 Are You Currently Employed? No Information not available 08/24/2020 Are You Deaf Or Do You Have Serious Difficulty Hearing? No [email or web address] Information not available 08/24/2020 What Type Of Diet Are You Following? REGULAR Low Carb Information not available 03/27/2021 Which Illicit Or Recreational Drugs Have You Used? Denies Information not available 01/30/2016 Do You Or Have You Ever Used E-cigarettes Or Vape? Never Used Electronic Cigarettes Information not available 11/17/2018 What Is The Highest Grade Or Level Of School You Have Completed Or The Highest Degree You Have Received? [id number] [email or web address] Information not available 08/24/2020 What Is Your Occupation? Retired Information not available 08/31/2019 Are There Any Guns Present In Your Home? No Information not available 09/22/2018 Hard Of Hearing Or Deaf In One Or Both Ears? No Information not available 08/31/2019 Legally Blind In One Or Both Eyes? No Information not available 08/31/2019 Marital Status Single Informatio n not available 01/30/2016 What Was The Date Of Your Most Recent Tobacco Screening? 06/30/2024 [email or web address] Information not available 06/30/2024 Performs Monthly Self-breast Exam? Yes Information not available 08/31/2019 What Is Your Relationship Status? Information not available 03/27/2021 Do You Use Your Seat Belt Or Car Seat Routinely? Yes [email or web address] Information not available 08/24/2020 Seat Belts Used Routinely Yes Information not available 09/22/2018 Are You Sexually Active? Yes Information not available 06/30/2024 Smoke Alarm In Home Yes Information not available 08/31/2019 Do You Have Smoke And Carbon Monoxide Detectors In Your Home? Yes [email or web address] Information not available 08/24/2020 Are You Passively Exposed To Smoke? Yes [email or web address] Information not available 06/30/2024 Do You Or Have You Ever Used Smokeless Tobacco? Never Used Smokeless Tobacco Information not available 11/17/2018 How Much Tobacco Do You Smoke? No Information not available 08/31/2019 General Stress Level Low [email or web address] Information not available 03/03/2020 Do You Feel Stressed (tense, Restless, Nervous, Or Anxious, Or Unable To Sleep At Night)? [id number] Information not available 04/25/2021 Do You Use Any Illicit Or Recreational Drugs? Yes Marijuanna Information not available 08/24/2020 Do You Use Sunscreen Routinely? Yes Information not available 09/22/2018 Has Tobacco Cessation Counseling Been Provided? No [email or web address] Information not available 06/30/2024 On What Date Was Tobacco Cessation Counseling Provided? 08/31/2019 Information not available 08/31/2019 Do You Or Have You Ever Used Any Other Forms Of Tobacco Or Nicotine? No [email or web address] Information not available 08/24/2020 Sex: Female Functional Status Question Answer Note LastModified by Organizat ion Details LastModified Time Are you able to care for yourself? Yes [email or web address] Information not available 08/24/2020 What is your exercise level? Occasional Information not available 01/30/2016 Mental Status None recorded. Family History Relationship Description Onset Age of this Age Resolved Age Notes LastModified by Organization Details LastModified Time Mother Essential hypertension [email or web address] Not available 10:11:39 Mother Diabetes mellitus [email or web address] Not available 2015 10:11:39 Mother Malignant tumor of breast [email or web address] Not available 2015 10:11:39 Father Migraine Not availabl e 06/06/2015 10:11:39 Father Essential hypertension [email or web address] Not available 10:11:39 Sister Diabetes mellitus [email or web address] Not available 2015 10:11:39 Sister Migraine Not availabl e 06/06/2015 10:11:39 Sister Malignant tumor of breast [email or web address] Not available 2015 10:11:39 Medical History Condition Response Coronary Artery Disease N Other Y Atrial Fibrillation N High Blood Pressure Y Thyroid Problems N Kidney or Bladder Problems Y COPD N Blood Clots N Depression N GI Problems N Skin Problems N Breast Problem Y Anemia Y Heart Attack ([place]) N Diabetes N Anxiety Disorder N Muscle, Joint, or Bone Problems Y Seizures/Epilepsy N Acid Reflux (GERD) Y Cancer N Stroke N Allergies Y Asthma Y High Cholesterol N Hepatitis N Liver Disease N Headaches Y Osteoporosis N Heart Failure N Gynecological History Statement/Question Response Abnormal Pap N Current Control Method Hysterectom y Most Recent Mammogram 08/22/2020 Date of Last Mammogram 04/10/2018 LMP Approximate Sexually Active? N Obstetrics History GPAL:G 0 P 0 0 0 0 Immunizations Vaccine Type Date Status Note Provider Nam e and Address Organization Details Recorded Time Influenza, split virus, quadrivalent, preservative 8 completed Perlita cutler [place] - [facility] 05/12/2018 10:02:12 Tdap 6 completed Not Available On license of [facility] 05/02/2019 02:29:59 Influenza, high-dose, trivalent, PF 1 completed NEGRITA Fish, [place] - [facility] 03/27/2021 15:17:12 Influenza, split virus, quadrivalent, preservative 6 completed Not Available [facility] 05/02/2019 02:32:33 Influenza, split virus, quadrivalent, preservative 7 completed Not Available [facility] 05/02/2019 02:40:56 Pneumococcal conjugate PCV 13 8 completed Not Available [facility] 05/02/2019 02:45:30 pneumococcal polysaccharide PPV23 9 completed Not Available [facility] 05/02/2019 02:38:05 Influenza, split virus, quadrivalent, preservative 9 completed Not Available [facility] 05/02/2019 02:42:38 COVID-19, mRNA, LNP-S, PF, 100 mcg/0.5mL dose or 50 mcg/0.25mL dose 1 completed David Raman [place] null, [place] - [facility] 06/24/2020 10:56:48 COVID-19, mRNA, LNP-S, PF, 100 mcg/0.5mL dose or 50 mcg/0.25mL dose 1 completed Ju Gorman [place], [place] [facility] 07/21/2020 16:29:10 COVID-19, mRNA, LNP-S, PF, 100 mcg/0.5mL dose or 50 mcg/0.25mL dose 2 completed Landy Gilbert [place], [place] - [facility] 04/27/2021 10:42:18 Past Encounters Encounter ID Performer Location Encounter Start Date Encounter Closed Date Diagnosis/Indication Diagnosis SNOMED-CT Code Diagnosis ICD10 Code Diagnosis Note [id number] MD Gloria Connellhalto (Adult Med) [address] [place] [address] 05/09/2015 14:16:12 05/10/2015 13:20:48 Essential hypertension 97065480 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) Increase Lisinopril 10mg to 20 mg daily Umbilical hernia 2587599 07 K42.9 will refer to surgeon in future Low back pain 752558697 M54.5 pt to discontinu e Diclofenac Flexeril hs Obesity 595737164 E66.3 Irritabili ty of urinary bladder 561348966 N32.89 [id number] [facility]asmyn Rush [facility] ([facility] 122) 2 [facility] [address] [place] [address] 06/06/2015 09:58:03 06/06/2015 15:03:18 Screening mammography 95044269 Z12.31 Gynecologi c examination 62540905 Z01.419 Postmenopausal state 764 94117 Z78.0 [id number] MD Amalia Connell (Adult Med) [address] [place] [address] 06/13/2015 13:43:43 06/13/2015 17:25:02 Essential hypertension 81919530 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) continue Lisinopril 10mg to 20 mg daily Irritabili ty of urinary bladder 835376310 N32.89 continue Oxybutynin Low back pain 098641802 M54.5 Add Gabapentin pt to use NSAID sparingly due to single kidney Flexeril hs check xray -consider referral to pain mx in future ( pt was on Vicodin in the past , had myelogram and recommende d sx for back issues per pt) Screening for malignant neoplasm of colon 866449357 Z12.11 [id number] [facility] ([facility] [address] [place] [address] 06/30/2015 10:41:02 07/04/2015 09:33:04 Low back pain 586314408 M54.5 continue Gabapentin pt to use NSAID sparingly due to single kidney pt to increase Flexeril tid will give Tramadol bid prn temporaril y check MRI -consider referral to pain mx in future ( pt was on Vicodin in the past , had myelogram and recommende d sx for back issues per pt) Essential hypertension 28077904 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) continue Lisinopril 20 mg daily [id number] [facility] ([facility] [address] [place] [address] 10/10/2015 13:55:11 10/10/2015 17:23:09 Essential hypertension 46847104 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) continue Lisinopril 20 mg daily Gastroesop hageal reflux disease without esophagitis 587867328 K21.9 with dysphagia Refer to GI for EGD Administra tion of diphtheria, pertussis, and tetanus vaccine 652898661 Z23 [id number] MD [facility] [address] [place] [address] 01/30/2016 13:44:39 01/30/2016 14:59:53 Essential hypertension 58931156 I10 continue Lisinopril monitor kidney function ( single kidney) Umbilical hernia 5779860 07 K42.9 will refer to surgeon in future ( pt is awaiting to get new insurance Administra tion of influenza vaccine 83645232 Z23 [id number] MD Gloria Connellhalto (Adult Med) [address] [place] [address] 05/14/2016 11:34:39 05/14/2016 12:16:34 Ankle pain 861974741 M25.572 possibly due to prolong standing at workpt to loose wt [id number] MD Gloria Connellhalto (Adult Med) [address] [place] [address] 06/04/2016 14:16:52 06/04/2016 15:09:11 Essential hypertension 30124793 I10 not well controlled -pt ran out med over the weekend continue Lisinopril monitor kidney function ( single kidney) Umbilical hernia 5585632 07 K42.9 will refer to surgeon Low back pain 056496317 M54.5 continue Gabapentin pt to use NSAID sparingly due to single kidneypt to continue Flexeril( pt was on Vicodin in the past , had myelogram and recommende d sx for back issues per pt) Acute bronchitis 8117854 2 J20.9 Increase fluidpt to go to ER if problem continues [id number] MD [facility] ([facility] [address] [place] [address] 07/13/2016 11:51:34 07/16/2016 15:14:02 Edema of lower extremity 407590586 R60.0 R>L leg pt recently had abdominal hernia repair done check venous doppler today If doppler is neg -pt to try gentle diuresis [id number] MD [facility] [address] [address] 07/30/2016 11:48:33 07/30/2016 15:05:11 Low back pain 514885438 M54.5 continue Gabapentin pt to use NSAID sparingly due to single kidneypt to continue Flexeril( pt was on Vicodin in the past , had myelogram and recommende d sx for back issues per pt)MRI 06/28 showed moderate spondylsos is -had received injection in the past Varicose v eins of lower extremity 49022307 I83.891 swelling is improved pt to wear compressio n stocking elevate legs whenever possible pt wants to see vascular surgeon Essential hypertension 98038399 I10 fair control continue Lisinopril for now monitor kidney function ( single kidney) Reassess [id number] MD [facility] [address] [place] [address] 08/20/2016 10:50:35 08/20/2016 13:17:56 Essential hypertension 90001992 I10 continue Lisinopril for now monitor kidney function ( single kidney) Low back pain 687349331 M54.5 continue Gabapentin pt to use NSAID sparingly due to single kidneypt to continue Flexeril( pt was on Vicodin in the past , had myelogram and recommende d sx for back issues per pt)MRI 06/28 showed moderate spondylsos is -had received injection in the pastpt wants to see orthopedic [id number] MD [facility] [address] [place] [address] 11/26/2016 09:52:02 11/27/2016 15:30:56 Essential hypertension 43337424 I10 Increase Lisinopril 30 mg for now monitor kidney function ( single kidney) Screening for malignant neoplasm of colon 572032060 Z12.11 pt had colonoscop y with in the past and had polypectom y Low back pain 603084571 M54.5 continue Gabapentin pt to use NSAID sparingly due to single kidneypt to continue Flexeril( pt was on Vicodin in the past , had myelogram and recommende d sx for back issues per pt)MRI 06/28 showed moderate spondylsos is -had received injection in the pastpt is seeing orthopedic Obesity 574175560 E66.3 healthy diet and exercise discussed with pt Venereal d isease screening 933887456 Z11.3 [id number] MD [facility] [address] [place] [address] 12/10/2016 14:33:26 12/10/2016 15:57:01 Administration of influenza vaccine 75833013 Z23 Viral hepatitis C 891381 07 B19.20 pt educated on hep C ( ex had hep C per pt )will check he b immunity Essential hypertension 72351845 I10 Increase Lisinopril 30 mg for now monitor kidney function ( single kidney) [id number] [facility] 2 [facility] [address] [place] [address] 03/18/2017 10:11:51 03/28/2017 15:26:05 Gynecologic examination 77044071 Z01.940 [id number] aPu Mata MD [facility] (Adult Med) [address] [place] [address] 04/01/2017 09:47:26 04/02/2017 10:49:19 Essential hypertension 74246913 I10 continue Lisinopril 30 mg for now monitor kidney function ( single kidney) [id number] Pau Mata MD [facility] (Adult Med) [address] [place] [address] 10/28/2017 10:43:56 11/01/2017 17:56:07 Essential hypertension 43680567 I10 continue Lisinopril 30 mg for now monitor kidney function ( single kidney) Active or passive immunization 019141077 Z23 Screening for malignant neoplasm of colon 687397493 Z12.11 pt had colonoscop y with in the past and had polypectom y Obesity 517739924 E66.3 healthy diet and exercise discussed with pt Irritabili ty of urinary bladder 379421814 N32.89 continue Oxybutynin Asthma 163915440 J45.20 stable Generalize d osteoarthritis 554715591 M15.9 continue gabapentin [id number] CAM Dey 14 OB 4 [facility] [address] [place] [address] 03/24/2018 08:39:56 03/24/2018 10:21:29 Screening mammography 33458430 Z12.31 Gynecologi c examination 54437176 Z01.039 [id number] MD [facility] [address] [place] [address] 05/12/2018 09:44:56 05/12/2018 15:48:37 Essential hypertension 36282263 I10 continue Lisinopril 30 mg for now monitor kidney function ( single kidney) Generalize d osteoarthritis 165239786 M15.9 continue gabapentin [id number] MD [facility] [address] [place] [address] 09/22/2018 09:02:41 09/23/2018 11:33:31 Screening for malignant neoplasm of colon 906099078 Z12.11 pt had colonoscop y with in the past and had polypectom y Essential hypertension 23964322 I10 continue Lisinopril 30 mg for now monitor kidney function ( single kidney) Edema of l ower extremity 985585182 R60.0 L>R leg check venous doppler to r/o DVT Obesity 040123045 E66.3 healthy diet and exercise discussed with pt Knee pain 98022224 M25.5 69 pt is seeing ortho -may need to find new ortho due to insurance in future [id number] MD [facility] ([facility] [address] [place] [address] 11/17/2018 09:49:38 11/18/2018 08:36:54 Essential hypertension 45135884 I10 with edema change Lisinopril to lisinopril hct 20/12.5 mg daily monitor kidney function ( single kidney) Generalize d osteoarthritis 140490303 M15.9 continue gabapentin Administra tion of pneumococcal vaccine 01618136 Z23 Asthma 032670754 J45.20 stable Gastroesop hageal reflux disease without esophagitis 534484635 K21.9 with dysphagiaR efer to GI for EGD [id number] MD [facility] ([facility] [address] [place] [address] 01/26/2019 09:51:14 01/26/2019 09:51:57 [id number] MD [facility] ([facility] [address] [place] [address] 03/02/2019 10:10:22 03/03/2019 12:57:12 Administration of influenza vaccine 82015107 Z23 Essential hypertension 34736934 I10 with edema continue lisinopril hct 20/12.5 mg daily monitor kidney function ( single kidney) [id number] Abi Portillo [facility] 14 OB 4 [facility] [place] [address] 04/28/2019 14:52:18 04/29/2019 09:15:08 Screening mammography 83428001 Z12.31 Gynecologi c examination 59598495 Z01.419 1. Counseled regarding prevention of STD's , condom use and prevention . 2. Counseled regarding contracept guido options, risk factors and side effects. 3. Advised avoidance of tobacco, alcohol, and drugs . 4. Counseled regarding folic acid supplement ation, calcium needs and prevention of osteoporos is . 5. BSE reviewed and recommende d. 6. Follow up in one year or sooner if needed. [id number] MD [facility] ([facility] [address] [place] [address] 08/31/2019 08:03:05 09/02/2019 11:16:37 Essential hypertension 39955587 I10 with edema. stable . continue lisinopril hct 20/12.5 mg daily monitor kidney function ( single kidney) Low back pain 636252743 M54.5 continue Gabapentin pt to use NSAID sparingly due to single kidneypt to continue Flexeril( pt was on Vicodin in the past , had myelogram and recommende d sx for back issues per pt)MRI 06/28 showed moderate spondylosi s -had received injection in the pastpt is seeing orthopedic [id number] Abi Portillo [facility] 14 OB 4 [facility] [place] [address] 01/28/2020 13:37:46 01/29/2020 10:36:46 Menopausal syndrome 538900430 N95.9 1. Discussed hormonal options and otc herbal options for menopausal management . Discussed risk factors and side effects associated with both options including increase risk of cancer, heart attack and stroke, blood clots. 2. Pt would like to start hrt at this time 3. Reviewed risk factors of hrt including increased risk of stroke, heart attack, certain cancers. pt verbalized understand ing. 4. will follow up in 3 months, sooner if needed. [id number] MD [facility] [address] [place] [address] 03/03/2020 09:10:03 03/04/2020 07:08:52 Essential hypertension 23524815 I10 with edema. stable ./ home bp are good. continue lisinopril hct 20/12.5 mg daily monitor kidney function ( single kidney) Low back pain 585751043 M54.5 pt is off of Gabapentin pt to use NSAID sparingly due to single kidneypt to continue Flexeril( pt was on Vicodin in the past , had myelogram and recommende d sx for back issues per pt)MRI 06/28 showed moderate spondylosi s -had received injection in the pastpt is seeing orthopedic [id number] MD Neetu Boateng 14 IM 4 [facility] [place] [address] 06/23/2020 15:19:29 06/24/2020 12:38:31 Administration of SARS-CoV-2 antigen vaccine 800138043 Z23 [id number] MD Neetu Boateng 14 IM 4 [facility] [place] [address] 07/21/2020 15:46:52 07/22/2020 12:39:01 Administration of SARS-CoV-2 antigen vaccine 741191979 Z23 [id number] Abi Portillo [facility] [place] 14 OB 4 [facility] [place] [place] [address] 08/09/2020 13:57:41 08/10/2020 12:20:20 Screening mammography 80953412 Z12.31 Importance of yearly mammograms and sbe exam discussed with pt. Mammogram order given, pt verbalized understand ing. [id number] MD Gloria Connellhalto (Adult Med) [address] [place] [address] 08/24/2020 09:02:05 08/25/2020 10:05:52 Essential hypertension 53835576 I10 with edema. stable ./ home bp are good. continue lisinopril hct 20/12.5 mg daily monitor kidney function ( single kidney) Obesity 548958201 E66.3 healthy diet and exercise discussed with pt Lumbar spondylosis 41836 0009 M47.896 pt is off of Gabapentin pt to use NSAID sparingly due to single kidney pt to try gabapentin again ( pt was on Vicodin in the past , had myelogram and recommende d sx for back issues per pt) MRI 06/28 showed moderate spondylosi s -had received injection in the past pt is seeing orthopedic [id number] MD Amalia Connell (Adult Med) [address] [place] [address] 12/16/2020 08:38:17 12/20/2020 06:17:48 Essential hypertension 71404446 I10 with edema. stable ./ home bp are good. continue lisinopril hct 20/12.5 mg daily monitor kidney function ( single kidney) Gastroesop hageal reflux disease without esophagitis 187216075 K21.9 s/p EGD 01/31 which showed sliding hernia - pt is on ppi -has some diarrhea -stool study -neg - will give famotidine Low back pain 375662198 M54.5 pt is off of Gabapentin pt to avoid NSAID due to single kidneypt to continue Flexeril( pt was on Vicodin in the past , had myelogram and recommende d sx for back issues per pt)MRI 06/28 showed moderate spondylosi s -had received injection in the pastpt is seeing orthopedic Obesity 458413959 E66.9 healthy diet and exercise discussed with pt Diarrhea 83667628 R19.7 stool study-negp t to discontinu e omeprazole -superintendent terminal use of ppi discussed with pt especially with single kidney [id number] GENE Dey[facility] 14 OB 4 [facility] [address] [place] [address] 03/22/2021 10:38:14 03/23/2021 05:44:02 At increased risk of urinary tract infection 070064394 Z91.89 1. Will send meds out for UTI 2. Pt instructed to increase fluids, decrease soda, sugary beverages and caffeinate d beverages. 3. To call office if symptoms worsen or do not improve with treatment. Pruritus of vagina 83284 003 L29.3 Meds sent to pharmacy. Counseled on bv/yeast prevention and treatment. Will call office back if treatment does not help with symptoms. Pt verbalized understand ing. [id number] MD Amalia Connell (Adult Med) [address] [place] [address] 03/27/2021 14:45:30 03/28/2021 12:20:11 Acute urinary tract infection 616444667 N39.0 -keep good hydration- urine culture -positive for E.coli - pt to take macrobid for 7 days [id number] MD Amalia Connell (Adult Med) [address] [place] [address] 04/19/2021 08:40:04 04/20/2021 09:41:49 Essential hypertension 72324773 I10 with edema. fairly stable continue lisinopril hct 20/12.5 mg daily monitor kidney function ( single kidney) Overweight 678489955 E66 .3 Generalize d osteoarthritis 676386941 M15.9 continue gabapentin Asthma 356392497 J45.20 fair control-pt wants to get back on advair [id number] MD Amalia Connell (Adult Med) [address] [place] [address] 04/25/2021 14:47:10 04/27/2021 07:25:30 Internal hordeolum of left lower eyelid 4308486224 45260 H00.025 -gentle warm compress- pt to see eye doctor if problem continues [id number] Keena Raya-MD Amalia Barth (Adult Med) [address] [place] [address] 04/27/2021 10:10:47 04/28/2021 08:04:00 Administration of SARS-CoV-2 mRNA vaccine 9778979520 Z23 [id number] [facility] 14 OB 4 [facility] [place] [address] 04/26/2022 14:08:58 04/27/2022 07:21:47 At increased risk of urinary tract infection 997654909 Z91.89 1. Will send meds out for UTI 2. Pt instructed to increase fluids, decrease soda, sugary beverages and caffeinate d beverages. 3. To call office if symptoms worsen or do not improve with treatment. [id number] MD Neetu Real 14 OB 4 [facility] [place] [address] 06/30/2024 09:58:38 07/03/2024 12:08:53 Overweight 220323602 E66.3 Discussed diet and weight loss. Discussed making healthier food choices and increasing exercise. Discussed going to a party plan sales consultant. High risk sexual behavior 920205207 Z72.51 1. STD testing done per pt request 2. Educated pt on STD prevention , Condom use 3. Pt verbalized understand ing 4. Will follow up pending lab results, as needed or at next annual Vaginal discharge 330828 006 N89.8 Nuswab done and sent to lab. Counseled on STD prevention and condom use. Counseled on yeast and BV prevention . Will follow up pending lab results. Vaginal dr martinez on intercourse 188393165 N89.8 1. Discussed hormonal options and otc herbal options for menopausal management . Discussed risk factors and side effects associated with both options including increase risk of cancer, heart attack and stroke, blood clots. 2. Pt would like to start hrt at this time 3. Reviewed risk factors of hrt including increased risk of stroke, heart attack, certain cancers. pt verbalized understand ing. 4. will follow up in 3 months, sooner if needed. Gynecologi c examination 99118632 Z01.419 1. Counseled regarding prevention of STD's , condom use and prevention . 2. Counseled regarding contracept guido options, risk factors and side effects. 3. Advised avoidance of tobacco, alcohol, and drugs . 4. Counseled regarding folic acid supplement ation, calcium needs and prevention of osteoporos is . 5. BSE reviewed and recommende d. 6. Follow up in one year or sooner if needed. Health Concerns Section Related Observation LastModified by Organization Detai ls LastModified Time None Recorded Concern Status LastModified by Organization Details LastModified Time None Recorded Advance Directives Directive N: Payers Encounter Date Sequence Insurance Name Policy Number Policy Perez Covered Member ID Perez Member ID Guarantor Name 04/19/2021 1 [employer] (MEDICARE REPLACEMENT/AD VANTAGE - PPO) Rosaura Serrano [id number] Rosaura Serrano 04/25/2021 1 [employer] (MEDICARE REPLACEMENT/AD VANTAGE - PPO) Rosaura Serrano [id number] Rosaura Serrano 04/27/2021 1 [employer] (MEDICARE REPLACEMENT/AD VANTAGE - PPO) Rosaura Serrano [id number] Rosaura Serrano 04/26/2022 1 [employer] (MEDICARE REPLACEMENT/AD VANTAGE - O) Rosaura Serrano [id number] Rosaura Serrano 06/30/2024 1 [facility] (MEDICARE REPLACEMENT HMO) Rosaura Zach [id number] Rosaura Zach Notes Date Note Type Note Provider Name and Address Organization Details Recorded Time 04/19/2021 text/html Hypertension F/UReported bypatient.Associat ed Symptoms:no dizziness; no chest pain;edema(on and off) Lifestyle:limiting /avoiding salt Medications:taking medications as directed; no side effects from medication pt takes gabapentin for arthritis / pt is requesting refill on advair , she has been using rescue inhaler more often since winter started . Pau Mata MD Attn: Accounting, [address] [facility], [place], [address], [facility] 04/19/2021 09:33:01 04/25/2021 text/html Red EyeReported bypatient.Location :left Quality:aching Severity:mild Onset/Timindays Associated Symptoms:normal vision;mucopurulen t discharge from the eyes(from lower eye lid and also noted bleeding vessel) Pau Mata MD Attn: Accounting, [address] [facility], [place], [address], [facility] 04/25/2021 15:31:54 04/26/2022 text/html Phone visit. Vaginal irritation with white discharge, urgency and frequency. Tried cipro from urgent care but it made her stomach upset and did not help s/s. CAM Dey Attn: Accounting,[address] [facility], [place], [address], [facility] 04/26/2022 14:14:54 06/30/2024 text/html Annual GYNReport ed bypatient.Urinary symptoms:No hematuria;Stress incontinence Vulva:No genital lesion Vagina:Normal vaginal discharge Breast:No breast pain; No breast lump; No nipple discharge Sexual complaints:No sexual complaints; Normal libido;Pain during intercourse Menopausal Symptoms:No menopausal symptoms; Normal vaginal lubrication Psychological symptoms:No depression; No anxiety; No PMDD Preventive measures:Encourage self breast examination; Encourage regular exercise; Encourage no tobacco use; Encourage regular mammograms starting age 40; Needs to schedule mammogram 74 yo fe here for wwe- would like full std testing- would like vaginal estrogen for dryness/pain during intercourse- hx asthma, hep c, obesity, back pain, htn, , hysterectomy- last mammogram wnl 08/22/20, has one schedueled for July Abi Portillo, [facility]- Attn: [employer],[address] [facility], [place], [address], [facility], [place] - [place] 06/30/2024 10:36:42 OBGyn Episode No OBEpisode recorded.
== END 2024-08-13 13:33 | disposition home or self-care (01) ==
PROVIDERS: PCP Physician Assistant; Visit Provider Physician Assistant
DX: Z13.820 Encounter for screening for osteoporosis (principal); Z78.0 Asymptomatic menopausal state; Z12.31 Encounter for screening mammogram for malignant neoplasm of breast
CPT/HCPCS: 77080